=== PATIENT | female | born 1970 | race Caucasian/White ===

== ENCOUNTER → 2019-11-13 11:43 | Outpatient (CLI) | payer OTHER, SELFPAY ==
--- NOTE | ~2019-11-13 | XR_ITS ---
EXAMINATION: XR chest 2V EXAM DATE: 11/13/2019 12:05 INDICATION: Cough, wheezing, anterior chest pain. TECHNIQUE: Frontal and lateral projections of the chest obtained and reviewed. There is no prior shanon dy for comparison. FINDINGS: There is large sliding gastroesophageal hiatal hernia. The lungs are clear. There are no p leural effusions. The cardiomediastinal silhouette is within normal limits. There is no pneumothora x suspected. The bones and soft tissues are unremarkable. IMPRESSION: No acute cardiopulmonary findings. Large hiatal hernia. Reviewed, dictated and finalized at location B. ATAL ICU COORDINATOR
== END ==
PROVIDERS: Visit Provider Family Medicine
DX: J45.909 Unspecified asthma, uncomplicated (principal)
CPT/HCPCS: 71046

== ENCOUNTER 2020-02-27 07:03 | Outpatient (CLI) | payer OTHER, SELFPAY ==
[2020-02-27 07:46] LABS: Hematocrit 38.7 % (37.0-47.0); Mean Corpuscular HGB Conc 33.6 g/dl (32-36); Mean Corpuscular Hemoglobin 29.6 pg (26-34); Mean Corpuscular Volume 88.2 fl (80-100); Mean Platelet Volume 11.1 fl (7.4-10.4); Platelet Count Result 366 k/mm3 (150-375); Red Blood Count 4.39 M/mm3 (4.2-5.4); White Blood Count 5.7 K/mm3 (4.5-10.0)
[2020-02-27 08:54] LABS: Free T4 Free Thyroxine 1.28 ng/mL (0.78-2.19)
[2020-02-27 09:10] LABS: Alanine Aminotransferase 14 U/L (4-35); Alkaline Phosphatase 48 U/L (38-126); Aspartate Amino Transferase 21 U/L (14-36); Bilirubin,Total 0.4 mg/dL (0.2-1.3); Blood Urea Nitrogen 12 mg/dL (7-17); Calcium 9.2 mg/dL (8.4-10.2); Carbon Dioxide 28 mmol/L (22-30); Chloride 103 mmol/L (98-107); Cholesterol 164 mg/dL (0-200); Estimated Glomerular Filt Rate > 60; Glucose 95 mg/dL (65-105); HDL Direct 46 mg/dL; Potassium 3.7 mmol/L (3.4-5.0); Sodium 137 mmol/L (137-145); Triglycerides 79 mg/dL (<150)
[2020-02-27 09:21] LABS: LDL Cholesterol Direct 96 mg/dL
[2020-03-02 04:21] LABS: Triiodothryronine T3 Uptake 32 % (22-35)
== END 2020-02-27 07:04 | disposition home or self-care (01) ==
PROVIDERS: PCP Family Medicine; Visit Provider Physician Assistant
DX: E03.9 Hypothyroidism, unspecified (principal); I10 Essential (primary) hypertension
CPT/HCPCS: 36415; 80053; 80061; 84439; 84443; 84479; 85027

== ENCOUNTER 2020-06-07 02:09 | Outpatient (CLI) | payer OTHER, SELFPAY ==
[2020-06-07 16:34] LABS: SARS-CoV-2 RNA PCR Negative
== END 2020-06-07 02:10 | disposition home or self-care (01) ==
LOC: ANHCOVIDDT 02:09
PROVIDERS: PCP Family Medicine; Visit Provider Internal Medicine Gastroenterology
DX: Z01.812 Encounter for preprocedural laboratory examination (principal); Z20.828 Contact with and (suspected) exposure to other viral communicable diseases
CPT/HCPCS: 87635; C9803; U0003

== ENCOUNTER 2020-06-09 01:34 | Day surgery (SDC) | payer OTHER, SELFPAY ==
[2020-06-03 14:59] VITALS: BMI 40.0
[2020-06-09 06:20] VITALS: BP 136/83; PULSE 84; RESP 20; TEMP 36.6; O2SAT 100; BMI 39.9
[2020-06-09] MEDS: LACTATED RINGERS 1,000 ML 150 ML IV CONT (06:34)
--- NOTE | 2020-06-09 07:12 | P.PNAN_ITS ---
Anes - Initial Pre Proc Eval Procedure: Operation Date: 06/09/20 07:30 Proposed Procedures p Esophagogastroduodenoscopy & Screening Colonoscopy - Harpal Rodriguez MD Date/Time: 06/09/20 07:12 Surgeon: Harpal Quevedo MD Pre Op Diagnosis: Eructation Hernia/ Neoplasm Screening Patient Data Age: 50 Gender: F Height: 5 ft 9 in Weight: 122.7 kg Last Vital Signs Temp 98 F 06/09/20 06:20 Pulse 84 06/09/20 06:20 Resp 20 06/09/20 06:20 BP 136/83 06/09/20 06:20 Pulse Ox 100 06/09/20 06:20 Allergies Allergy/AdvReac Type Severity Reaction Status Date / Time gentamicin Allergy Unknown Eye Verified 06/09/20 06:19 Irriation Home Medications Medication Instructions Recorded Confirmed Type levothyroxine [Synthroid] 150 mcg PO DAILY 08/25/19 06/09/20 History venlafaxine 225 mg PO DAILY 08/25/19 06/09/20 History hydrochlorothiazide 12.5 mg capsule 12.5 mg PO DAILY #90 cap 02/04/20 06/09/20 Rx liothyronine 5 mcg tablet 5 mcg PO DAILY #90 tablet 02/18/20 06/09/20 Rx albuterol sulfate [ProAir HFA] 2 puff INHALATION 6XD PRN 06/03/20 06/03/20 History carvedilol 6.25 mg PO DAILY 06/03/20 06/09/20 History fexofenadine [Ani Allergy] 180 mg PO DAILY 06/03/20 06/09/20 History peg 3350-electrolytes 236 240 ml PO Q10M #4000 ml 06/03/20 Rx gram-22.74 gram-6.74 gram-5.86 gram solution Patient hx anesthesia problems: none Family hx anesthesia problems: none PMFSH Past Medical History Medical History (Updated 05/27/20 @ 13:50 by Harpal Quevedo MD) Adult hypothyroidism Asthma Functional burping disorder H/O diagnostic mammography 08/2019 Hiatal hernia HTN (hypertension) Morbid obesity Social History Social History Social History: Smoking status: Never smoker Second hand tobacco smoke exposure: No Alcohol intake: current Alcohol use details: RARELY Substance use: never Substance use type: does not use Living arrangements: with family Gender identity (if verbalized by the patient): Female Spiritual care concerns: No Anes - Eval Final PreProcedure Day of Procedure 06/09/20 07:12 Patient weight: morbidly obese Heart: regular rate and rhythm Lungs: clear to auscultation Airway: Mallampati scale class II Neurological: alert and oriented Last oral intake: >/= 8 hours ASA classification: III Emergent: no Anesthetic plan: proceed Anesthesia type and monitoring: general GIVS and standard monitoring Informed Consent: The patient's anesthetic plan and its attendant risks and benefits were discussed with the patient/family/POA. Questions were solicited and answers provided to the satisfaction of the patient/family/POA.
--- NOTE | 2020-06-09 07:35 | WPDHPUPDATE1 ---
History and Physical Update Update Date/Time: 06/09/20 07:35 History and Physical has been reviewed, including an updated exam of the patient. There are NO changes in the patient's condition. Risks, benefits, and alternatives have been discussed and questions answered. Patient agrees to proceed with procedure.
--- NOTE | 2020-06-09 07:52 | SUR.OPER ---
EGD ENDED 747 COLON STARTED 752
[2020-06-09 08:07] VITALS: BP 120/70; PULSE 77; RESP 18; O2SAT 99
[2020-06-09 08:17] VITALS: BP 120/71; PULSE 73; RESP 17; O2SAT 100
[2020-06-09 08:27] VITALS: BP 126/67; PULSE 70; RESP 15; O2SAT 100
== END 2020-06-09 08:48 | disposition home or self-care (01) ==
PROVIDERS: PCP Family Medicine; Visit Provider Internal Medicine Gastroenterology
PROC: 0DJ08ZZ Inspection of Upper Intestinal Tract, Via Natural or Artificial Opening Endoscopic (ICD-10-PCS; CPT 43235; principal; 2020-06-09 07:30)
DX: Z12.11 Encounter for screening for malignant neoplasm of colon (principal); K57.30 Diverticulosis of large intestine without perforation or abscess without bleeding; K64.8 Other hemorrhoids; K44.9 Diaphragmatic hernia without obstruction or gangrene; K25.9 Gastric ulcer, unspecified as acute or chronic, without hemorrhage or perforation; K29.50 Unspecified chronic gastritis without bleeding; E03.9 Hypothyroidism, unspecified; I10 Essential (primary) hypertension; E66.01 Morbid (severe) obesity due to excess calories; Z68.39 Body mass index [BMI] 39.0-39.9, adult
CPT/HCPCS: 45378; 43239; 87081; 87635; 88305; C9803; J2704; J7120; U0003

== ENCOUNTER 2021-02-10 08:34 | Outpatient (CLI) | payer OTHER, SELFPAY ==
--- NOTE | ~2021-02-10 | MM_ITS ---
EXAMINATION: MM screening bunny BI w wyatt HISTORY: Screening mammogram TECHNIQUE: Craniocaudal and mediolateral oblique 3-D tomosynthesis images were obtained and synthetic 2-D images were generated. CAD analysis was submitted and interpreted. COMPARISON: 09/12/2019 and 02/25/2019 diagnostic left digital mammogram and limited left breast ultras ound examinations 02/11/2019, 09/27/2016 bilateral digital screening mammogram examinations BREAST PARENCHYMAL COMPOSITION: There are scattered areas of fibroglandular density. FINDINGS: There is no evidence of suspicious mass, calcification, or architectural distortion to sugg est malignancy in either breast. There has been no suspicious interval change. IMPRESSION: 1. No mammographic evidence of malignancy. 2. Recommend routine screening mammography in one year. BI-RADS Category 1: Negative Reviewed, dictated and finalized at location A.
== END 2021-02-10 08:35 | disposition home or self-care (01) ==
PROVIDERS: PCP Family Medicine; Visit Provider Obstetrics & Gynecology
DX: Z12.31 Encounter for screening mammogram for malignant neoplasm of breast (principal)
CPT/HCPCS: 77063; 77067

== ENCOUNTER 2021-04-27 07:42 | Emergency (ER) | payer OTHER, SELFPAY ==
--- NOTE | ~2021-04-27 | CT_ITS ---
EXAMINATION: CTA brain carotid DATE: 04/27/2021 09:11 INDICATION: Transient ischemic attack. Right hemiparesis. TECHNIQUE: Computed tomographic angiography (CTA) of the head was performed without and with 100 mL O mnipaque-350 intravenous contrast. CTA of the neck was performed with intravenous contrast. Automated exposure control and iterative reconstruction technique were employed. The dose-length product was 1 598.43 mGy-cm. Maximum intensity projection and volume rendered 3D-reconstructions were created by zoe thapa technologist on a separate workstation. COMPARISON: None. FINDINGS: HEAD CTA: There is no intracranial hemorrhage, acute infarction, or abnormal intracranial mass lesion . The ventricles are normal in size. There is mild mucosal thickening in the paranasal sinuses. The m astoid air cells are normal. The orbits are normal. The vertebral arteries are codominant. There is n o significant stenosis of basilar artery or the posterior cerebral arteries. There is no significant stenosis of intracranial internal carotid arteries or anterior cerebral arteries. There is nonocclusi ve thrombus in left middle cerebral artery. Anterior communicating artery is normal. The posterior co mmunicating arteries are normal. There is no aneurysm. NECK CTA: There is a 2.0 cm nodule in the thyroid. There are no pathologically enlarged lymph nodes. There is designated stenosis of the vertebral arteries. There is minimal plaque in the proximal inter nal carotid arteries. There is 0% stenosis of the proximal right internal carotid artery relative to normal distal artery lumen diameter (NASCET criteria). There is 0% stenosis of the proximal left int ernal carotid artery relative to normal distal artery lumen diameter. There is moderate cervical spon dylosis. IMPRESSION: 1. Thrombus in proximal left middle cerebral artery. No visible infarct. 2. 0% stenosis of the proximal internal carotid arteries relative to normal distal artery lumen diame ters (NASCET criteria). 3. 2.0 cm thyroid nodule. Consider thyroid ultrasound for risk stratification. Reviewed, dictated and finalized at location A. IMPRESSION: 1. Thrombus in proximal left middle cerebral artery. No visible infarct. 2. 0% stenosis of the proximal internal carotid arteries relative to normal dis keysha artery lumen diameters (NASCET criteria). 3. 2.0 cm thyroid nodule. Consider thyroid ultrasound for risk stratification.
[2021-04-27 07:51] VITALS: BP 131/96; PULSE 86; RESP 16; TEMP 36.6; O2SAT 99
--- NOTE | 2021-04-27 08:02 | ECG_ITS ---
Measurements Intervals [place] Rate: 75 P: 67 CA: 139 QRS: -24 QRSD: 114 T: 50 QT: 385 QTc: 432 Interpretive Statements SINUS RHYTHM POOR R WAVE PROGRESSION, ANTERIOR LEADS BASELINE ARTIFACT- I, II, III, AVR, AVL, AVF, V1, V3-V5 BORDERLINE ECG Electronically Signed On 04-27-2021 8:56:32 CDT by Yvon Montes D.O.
--- NOTE | 2021-04-27 08:03 | ED.NEUROSD ---
HPI - Neuro Symptoms/Deficit General Chief Complaint: Neuro Symptoms/Deficit Stated Complaint: arm weakness leg weakness/ right side/onset 0700 Time Seen by Provider: 04/27/21 07:49 History of Present Illness HPI Narrative: 51 yo female w/ h/o htn presents to the ED for stroke-like symptoms. She reports that after getting out of bed she attempted to reach for something with her right hand and was not able to make it work. She picked it up with her left hand with no problem. She then tried to walk and fell to the ground. When she called out for help she was not able to form words. These symptoms lasted 5-10 minutes. they have totally resolved at this time. No prior events. Denies any other symptoms. Related Data Home Medications Medication Instructions Recorded Confirmed venlafaxine 225 mg PO DAILY 08/25/19 02/08/21 albuterol sulfate [ProAir HFA] 2 puff INHALATION 6XD PRN 06/03/20 02/08/21 fexofenadine 60 mg tablet 60 mg PO Q12H 02/08/21 02/08/21 Allergies Allergy/AdvReac Type Severity Reaction Status Date / Time gentamicin Allergy Unknown Eye Verified 04/27/21 07:59 Irriation Review of Systems Review of Systems: All systems reviewed & are unremarkable except as noted in HPI and below Constitutional: Constitutional: Denies chills and Denies fever(s) Eyes: Eyes: Denies change in vision ENT: Reports dizziness Cardiovascular: Cardiovascular: Denies chest pain Respiratory: Respiratory: Denies dyspnea Gastrointestinal: Gastrointestinal: Denies abdominal pain and Denies nausea Genitourinary: Genitourinary: Reports no additional female genitourinary complaints Musculoskeletal: Musculoskeletal: Denies back pain Neurologic: Reports as per HPI [facility] Past Medical History Medical History Adult hypothyroidism Asthma Functional burping disorder GERD (gastroesophageal reflux disease) H/O diagnostic mammography 08/2019 Hiatal hernia HTN (hypertension) Morbid obesity Family History Family History Father Hypertension Family history of elevated blood lipids Mother Family history of lung cancer Other Family history of arthritis Family history of cardiovascular disease Family history of malignant neoplasm Social History Social History Social History: Smoking status: Never smoker Second hand tobacco smoke exposure: No Alcohol intake: current Alcohol use details: Once a month Substance use: never Substance use type: does not use Gender identity (if verbalized by the patient): Female Spiritual care concerns: No Exam Const: General: healthy appearing, no acute distress and alert Orientation/consciousness: patient oriented x3 HENMT: Head: normal to inspection Neck: Neck: normal visual inspection and no lymphadenopathy Chest: Chest palpation & inspection: no tenderness Resp: Effort & Inspection: normal respiratory effort Auscultation: clear to auscultation bilaterally, no rales, no rhonchi and no wheezes Cardio: Jugular venous distension: no JVD Rate: regular rate Rhythm: regular rhythm Heart sounds: no murmurs GI: Inspection: non-distended GI Palp: Yes Soft to palpation and No Tenderness to palpation present (GI) Skin: General skin exam: normal color Neuro: General: patient oriented x3 and moves all extremities Speech: normal speech Motor exam (neuro): 5/5 motor strength present throughout Sensory Exam: normal sensation Coordination: [id number]-[id number] test normal and Normal rapid alternating movements of the distal upper extremity present (Neuro) Extrem: General: no edema Psych: Appearance: well kempt Affect: normal affect Course Vital Signs Vital signs: Vital Signs Temperature 36.6 C 04/27/21 07:51 Pulse Rate 86 04/27/21 07:51 Respiratory Rate 16 04/27/21 07:51 Blo
[2021-04-27 08:16] LABS: Glucose Point of Care 117 mg/dl (65-105)
[2021-04-27 08:32] LABS: Basophils Absolute Auto 0.1 K/mm3 (0.0-0.1); Basophils Percent Auto 1.1 % (0.2-1.2); Eosinophils Absolute Auto 0.3 K/mm3 (0-0.3); Eosinophils Percent Auto 6.7 % (0-4.4); Hematocrit 39.6 % (37.0-47.0); Hemoglobin 12.9 g/dL (12.0-15.0); Immature Granulocyte Absolute 0.02 K/mm3 (0.00-0.031); Immature Granulocyte Percent A 0.4 % (0-0.5); Lymphocytes Absolute Auto 1.17 K/mm3 (0.9-3.2); Lymphocytes Percent Auto 24.6 % (18.3-44.2); Mean Corpuscular HGB Conc 32.6 g/dl (32-36); Mean Corpuscular Hemoglobin 28.5 pg (26-34); Mean Corpuscular Volume 87.6 fl (80-100); Mean Platelet Volume 10.9 fl (7.4-10.4); Monocytes Absolute Auto 0.4 K/mm3 (0.1-0.6); Monocytes Percent Auto 9.3 % (2.6-8.5); Neutrophils Absolute Auto 2.8 K/mm3 (1.3-6.7); Neutrophils Percent Auto 57.9 % (45.5-73.1); Platelet Count Result 346 k/mm3 (150-375); Red Blood Count 4.52 M/mm3 (4.2-5.4); Red Cell Distribution Width 13.5 % (11.5-14.5); White Blood Count 4.8 K/mm3 (4.5-10.0)
[2021-04-27 08:36] LABS: Alanine Aminotransferase 19 U/L (4-35); Alkaline Phosphatase 60 U/L (38-126); Anion Gap 7 mmol/L (8-16); Aspartate Amino Transferase 24 U/L (14-36); Bilirubin,Total 0.4 mg/dL (0.2-1.3); Blood Urea Nitrogen 9 mg/dL (7-17); Calcium 9.3 mg/dL (8.4-10.2); Carbon Dioxide 25 mmol/L (22-30); Chloride 103 mmol/L (98-107); Estimated Glomerular Filt Rate > 60; Glucose 123 mg/dL (65-110); Potassium 3.5 mmol/L (3.4-5.0); Sodium 135 mmol/L (137-145)
[2021-04-27 08:45] LABS: Partial Thromboplastin Time 28.1 SECONDS (22.3-36.8)
[2021-04-27 08:48] LABS: Troponin I < 0.012 ng/mL (0.000-0.034)
--- NOTE | 2021-04-27 09:59 | PC.NURSE ---
Aspirin not given. Pt took a total of 6 81mg aspirin this morning. Dr. Kitchen made aware.
[2021-04-27 10:00] VITALS: BP 127/90; PULSE 83; RESP 16; O2SAT 100
[2021-04-27 10:09] VITALS: BP 119/82; PULSE 77; RESP 16; O2SAT 100
== END 2021-04-27 10:23 | disposition short-term general hospital (02) ==
PROVIDERS: Emergency Provider Emergency Medicine; PCP Family Medicine
DX: G45.9 Transient cerebral ischemic attack, unspecified (principal); I66.02 Occlusion and stenosis of left middle cerebral artery; J45.909 Unspecified asthma, uncomplicated; K21.9 Gastro-esophageal reflux disease without esophagitis; I10 Essential (primary) hypertension; E66.01 Morbid (severe) obesity due to excess calories; E03.9 Hypothyroidism, unspecified; R94.31 Abnormal electrocardiogram [ECG] [EKG]
CPT/HCPCS: 36415; 70496; 70498; 80053; 82948; 84484; 85025; 85610; 85730; 93005; 99285; Q9967

== ENCOUNTER 2021-12-12 06:48 | Outpatient (CLI) | payer OTHER, SELFPAY ==
[2021-12-12 07:31] LABS: Basophils Absolute Auto 0.1 K/mm3 (0.0-0.1); Basophils Percent Auto 0.9 % (0.2-1.2); Eosinophils Absolute Auto 0.4 K/mm3 (0-0.3); Eosinophils Percent Auto 6.5 % (0-4.4); Hemoglobin 13.1 g/dL (12.0-15.0); Immature Granulocyte Absolute 0.01 K/mm3 (0.00-0.031); Immature Granulocyte Percent A 0.2 % (0-0.5); Lymphocytes Absolute Auto 1.58 K/mm3 (0.9-3.2); Lymphocytes Percent Auto 29.3 % (18.3-44.2); Mean Corpuscular HGB Conc 33.6 g/dl (32-36); Mean Corpuscular Hemoglobin 30.6 pg (26-34); Mean Corpuscular Volume 91.1 fl (80-100); Mean Platelet Volume 9.9 fl (7.4-10.4); Monocytes Absolute Auto 0.4 K/mm3 (0.1-0.6); Monocytes Percent Auto 8.2 % (2.6-8.5); Neutrophils Percent Auto 54.9 % (45.5-73.1); Platelet Count Result 314 k/mm3 (150-375); Red Blood Count 4.28 M/mm3 (4.2-5.4); Red Cell Distribution Width 12.6 % (11.5-14.5); White Blood Count 5.4 K/mm3 (4.5-10.0)
[2021-12-12 07:47] LABS: Alanine Aminotransferase 22 U/L (4-35); Albumin Level 3.9 g/dL (3.5-5.1); Alkaline Phosphatase 55 U/L (38-126); Anion Gap 5 mmol/L (8-16); Aspartate Amino Transferase 24 U/L (14-36); Bilirubin,Total 0.4 mg/dL (0.2-1.3); Blood Urea Nitrogen 11 mg/dL (7-17); Calcium 9.1 mg/dL (8.4-10.2); Carbon Dioxide 30 mmol/L (22-30); Chloride 106 mmol/L (98-107); Cholesterol 122 mg/dL (0-200); Estimated Glomerular Filt Rate > 60; Glucose 100 mg/dL (65-110); HDL Direct 54 mg/dL; Potassium 4.1 mmol/L (3.4-5.0); Sodium 141 mmol/L (137-145); Triglycerides 68 mg/dL (<150)
[2021-12-12 07:57] LABS: LDL Cholesterol Direct 47 mg/dL
[2021-12-12 08:07] LABS: Free T4 Free Thyroxine 0.96 ng/mL (0.78-2.19)
[2021-12-12 08:17] LABS: Thyroid Stimulating Hormone 0.155 uIU/mL (0.465-4.680); Total Triiodothyronine (T3) 1.26 NG/ML (0.97-1.69)
== END 2021-12-12 06:49 | disposition home or self-care (01) ==
LOC: ANHLAB 06:50
PROVIDERS: PCP Family Medicine; Visit Provider Family Medicine
DX: I10 Essential (primary) hypertension (principal); E03.9 Hypothyroidism, unspecified; E78.2 Mixed hyperlipidemia; E11.9 Type 2 diabetes mellitus without complications
CPT/HCPCS: 36415; 80053; 80061; 83036; 84439; 84443; 84480; 85025

== ENCOUNTER 2022-02-04 06:41 | Outpatient (CLI) | payer OTHER, SELFPAY ==
[2022-02-04 07:44] LABS: Alanine Aminotransferase 21 U/L (6-35); Albumin Level 4.1 g/dL (3.5-5.1); Alkaline Phosphatase 59 U/L (38-126); Anion Gap 6 mmol/L (8-16); Aspartate Amino Transferase 25 U/L (14-36); Bilirubin,Total 0.3 mg/dL (0.2-1.3); Blood Urea Nitrogen 20 mg/dL (7-17); Carbon Dioxide 28 mmol/L (22-30); Chloride 104 mmol/L (98-107); Cholesterol 121 mg/dL (0-200); Estimated Glomerular Filt Rate > 60; Glucose 100 mg/dL (65-110); HDL Direct 59 mg/dL; Potassium 4.2 mmol/L (3.4-5.0); Sodium 138 mmol/L (137-145); Triglycerides 45 mg/dL (<150)
[2022-02-04 07:45] LABS: Basophils Absolute Auto 0.1 K/mm3 (0.0-0.1); Basophils Percent Auto 0.9 % (0.2-1.2); Eosinophils Absolute Auto 0.3 K/mm3 (0-0.3); Eosinophils Percent Auto 5.5 % (0-4.4); Hematocrit 39.2 % (37.0-47.0); Hemoglobin 13.2 g/dL (12.0-15.0); Immature Granulocyte Absolute 0.01 K/mm3 (0.00-0.031); Immature Granulocyte Percent A 0.2 % (0-0.5); Lymphocytes Absolute Auto 1.68 K/mm3 (0.9-3.2); Lymphocytes Percent Auto 29.6 % (18.3-44.2); Mean Corpuscular HGB Conc 33.7 g/dl (32-36); Mean Corpuscular Hemoglobin 30.8 pg (26-34); Mean Corpuscular Volume 91.6 fl (80-100); Mean Platelet Volume 10.2 fl (7.4-10.4); Monocytes Absolute Auto 0.4 K/mm3 (0.1-0.6); Monocytes Percent Auto 7.4 % (2.6-8.5); Neutrophils Absolute Auto 3.2 K/mm3 (1.3-6.7); Neutrophils Percent Auto 56.4 % (45.5-73.1); Platelet Count Result 326 k/mm3 (150-375); Red Blood Count 4.28 M/mm3 (4.2-5.4); White Blood Count 5.7 K/mm3 (4.5-10.0)
[2022-02-04 07:57] LABS: LDL Cholesterol Direct 38 mg/dL
[2022-02-04 08:19] LABS: Thyroid Stimulating Hormone 0.695 uIU/mL (0.465-4.680)
== END 2022-02-04 06:42 | disposition home or self-care (01) ==
LOC: ANHLAB 06:43
PROVIDERS: PCP Family Medicine; Visit Provider Family Medicine
DX: I10 Essential (primary) hypertension (principal); E03.9 Hypothyroidism, unspecified; E78.2 Mixed hyperlipidemia
CPT/HCPCS: 36415; 80053; 80061; 84439; 84443; 85025

== ENCOUNTER 2022-04-12 00:34 | Inpatient (IN) | payer OTHER, SELFPAY ==
--- NOTE | ~2022-04-12 | CT_ITS ---
EXAMINATION: CT abdomen pelvis w con DATE: 04/12/2022 01:41 INDICATION: Upper abdominal pain TECHNIQUE: Computed tomography (CT) of the abdomen and pelvis was performed with 100 mL Omnipaque-300 intravenous contrast. Automated exposure control and iterative reconstruction technique were employe d. The dose-length product was 1446.53 mGy-cm. COMPARISON: None FINDINGS: Visualized lower lungs are clear. Heart size is normal. No pericardial or pleural effusion. Postopera tive change of prior Roxann fundoplication. Mild central intrahepatic biliary ductal dilation and mil d dilation of the common bile duct which measures up to 8 mm in maximal diameter without evident obst ructing stone or mass. Mild dilation of the gallbladder with subtle haziness to the pericholecystic f at suspicious for acute cholecystitis. Mild peripancreatic stranding consistent with acute pancreatit is. Spleen, bilateral adrenal glands and kidneys are normal. There is mild colonic diverticulosis wit h a sigmoid and descending colon predominance. There is no adjacent inflammatory change to suggest d iverticulitis. Small bowel and appendix are normal. Bladder, anteverted uterus and bilateral adnexa a re unremarkable. No free intraperitoneal gas or fluid. No pathologically enlarged abdominal or pelvic lymphadenopathy. Mild lumbar levocurvature with severe lower lumbar spondylosis. IMPRESSION: 1. Mild peripancreatic inflammatory stranding consistent with acute interstitial pancreatitis. Correl ate with amylase and lipase levels. 2. Dilation of the gallbladder with subtle inflammatory stranding to the pericholecystic fat consiste nt with acute cholecystitis. 3. Mild intra and extrahepatic biliary ductal dilation without evident obstructing lesion. Could cons ider MRCP for further evaluation. Reviewed, dictated and finalized at location A. IMPRESSION: 1. Mild peripancreatic inflammatory stranding consistent with acute interstitia l pancreatitis. Correlate with amylase and lipase levels. 2. Dilation of the gallbladder with subtle inflammatory stranding to the perich olecystic fat consistent with acute cholecystitis. 3. Mild intra and extrahepatic biliary ductal dilation without evident obstruct ing lesion. Could consider MRCP for further evaluation.
--- NOTE | ~2022-04-12 | MR_ITS ---
EXAMINATION: MR MRCP wo/w con/w 3D wo ind DATE: 04/12/2022 13:18 INDICATION: Cholelithiasis, pancreatitis TECHNIQUE: Magnetic resonance imaging (MRI) of the abdomen was performed without and with intravenous contrast. Sequences included coronal T2-weighted SS-FSE ARC, coronal T2-weighted FS SS-FSE, coronal T2-weighted 2D FS FIESTA, Water:Coronal LAVA-Flex, sagittal T2-weighted SS-FSE ARC, axial SSFSE ARC, axial 3D DualEcho, axial DWI B=600, axial T1-weighted LAVA, FAT:Coronal LAVA-Flex, and coronal in and opposed phase LAVA-Flex. Thick-slab T2-weighted FRFSE-XL images were obtained for magnetic resonance cholangiopancreatography (MRCP). Maximum intensity projection 3-D reconstructions of the volumetric data were created by the technologist. Postcontrast sequences included a time course of axial T1-weig hted LAVA, FAT:Coronal LAVA-Flex, coronal in and opposed phase LAVA-Flex, and Water:Coronal LAVA-Flex . COMPARISON: CT and ultrasound from today CONTRAST: Multihance, 20 cc FINDINGS: ABDOMEN MRI: The liver, spleen, adrenal glands, and kidneys are normal. The gallbladder is distended and contains multiple stones. There is mild wall thickening of the gallbladder and more focal wall th ickening in the gallbladder fundus. There is mildly decreased enhancement of the pancreas. There is a small amount peripancreatic fluid. There are no pathologically enlarged abdominal lymph nodes. No di lated loops of bowel are evident. The appendix is normal. A Tarlov cyst is noted in the sacrum. ABDOMEN MRCP: There is no intrahepatic or extrahepatic biliary dilatation. No stones or stricture of the common bile duct are identified. The pancreatic duct is normal in course and caliber. IMPRESSION: 1. No intrahepatic or extrahepatic biliary dilatation. No stones or stricture of the common bile duct . 2. Findings consistent with acute pancreatitis. 3. Cholelithiasis and cholecystitis, possibly secondary to pancreatitis. Reviewed, dictated and finalized at location B. IMPRESSION: 1. No intrahepatic or extrahepatic biliary dilatation. No stones or stricture o f the common bile duct. 2. Findings consistent with acute pancreatitis. 3. Cholelithiasis and cholecystitis, possibly secondary to pancreatitis.
--- NOTE | ~2022-04-12 | XR_ITS ---
EXAMINATION: 04/14/2022 12:55 DATE: 04/14/2022 15:19 CDT INDICATION: Cholecystectomy, intraoperative cholangiogram TECHNIQUE: Intraoperative cholangiogram with portable contrast run(s) provided for review. 312 images . 65 seconds of fluoroscopy. FINDINGS: There is cannulation and contrast administration into the cystic duct remnant. There is a long cystic duct with a low insertion, a normal variant. There is a persistent filling defect which is mobile and the common duct which is seen near the sphincter of Oddi on the final images, consisten t with choledocholithiasis. No significant biliary dilatation. Extravasation of contrast is noted. Th ere is passage of contrast into the duodenum, consistent with only partial obstruction. IMPRESSION: 1. Patent cystic duct and common duct with multiple filling defect, consistent with choledocholithia sis. Reviewed, dictated and finalized at location A. IMPRESSION: 1. Patent cystic duct and common duct with multiple filling defect, consistent with choledocholithiasis.
--- NOTE | ~2022-04-12 | US_ITS ---
US abdomen limited INDICATION: Evaluate for cholelithiasis. PROCEDURE: Realtime right upper abdominal ultrasound. COMPARISON: CT abdomen dated 04/12/2022 FINDINGS: The pancreas is normal without focal mass or pancreatic ductal dilation. Liver echotexture is normal without focal mass or intrahepatic biliary dilatation. There is normal directional flow i n the portal vein. Gallbladder contains gallstones and sludge. No gallbladder wall thickening or pericholecystic fluid. Common bile duct measures 5 mm. No sonographic Pradhan's sign. IMPRESSION: 1: Gallbladder contains gallstones and sludge. Reviewed, dictated and finalized at location A.
[2022-04-12 00:42] VITALS: BP 132/64; PULSE 86; RESP 26; TEMP 36.4; O2SAT 100
[2022-04-12 01:05] LABS: Basophils Absolute Auto 0.1 K/mm3 (0.0-0.1); Basophils Percent Auto 0.6 % (0.2-1.2); Eosinophils Absolute Auto 0.1 K/mm3 (0-0.3); Eosinophils Percent Auto 0.9 % (0-4.4); Hematocrit 40.7 % (37.0-47.0); Hemoglobin 13.7 g/dL (12.0-15.0); Immature Granulocyte Absolute 0.02 K/mm3 (0.00-0.031); Immature Granulocyte Percent A 0.2 % (0-0.5); Lymphocytes Absolute Auto 0.85 K/mm3 (0.9-3.2); Lymphocytes Percent Auto 9.7 % (18.3-44.2); Mean Corpuscular HGB Conc 33.7 g/dl (32-36); Mean Corpuscular Hemoglobin 30.2 pg (26-34); Mean Corpuscular Volume 89.8 fl (80-100); Mean Platelet Volume 9.8 fl (7.4-10.4); Monocytes Absolute Auto 0.7 K/mm3 (0.1-0.6); Monocytes Percent Auto 8.4 % (2.6-8.5); Neutrophils Absolute Auto 7.1 K/mm3 (1.3-6.7); Neutrophils Percent Auto 80.2 % (45.5-73.1); Platelet Count Result 359 k/mm3 (150-375); Red Blood Count 4.53 M/mm3 (4.2-5.4); Red Cell Distribution Width 12.5 % (11.5-14.5); White Blood Count 8.8 K/mm3 (4.5-10.0)
--- NOTE | 2022-04-12 01:07 | ED.ABDPAIN ---
HPI - Abdominal Pain General Chief Complaint: Abdominal Pain Stated Complaint: ABD pain Time Seen by Provider: 04/12/22 00:48 Source: patient, RN notes reviewed and old records reviewed Mode of arrival: ambulatory Limitations: no limitations History of Present Illness HPI narrative: This is a 53 year old female who presents for evaluation of upper abdominal pain. She states her pain started at 5 pm yesterday evening. She has associated bloating, nausea, vomiting. She states her pain is constant and worsening. She also states her pain radiates to her back. She denies fever or chills. She had similar pain 2 weeks ago but it resolved spontaneously so she did not seek medical evaluation. She has never been diagnosed with gallstones or pancreatitis in the past. She ate dinner and she is unsure if eating made her pain worse. She rates her pain 10/10. She denies chest pain. She reports shortness of breath due to her abdominal pain. Related Data Home Medications Medication Instructions Recorded Confirmed venlafaxine 75 mg capsule,extended 225 mg PO DAILY 08/25/19 02/27/22 release 24 hr fexofenadine 60 mg tablet (Ani 60 mg PO Q12H 02/08/21 02/27/22 Allergy) carvedilol 6.25 mg tablet 6.25 mg PO DAILY 04/12/22 04/12/22 liothyronine 5 mcg tablet 5 mcg PO DAILY 04/12/22 04/12/22 Allergies Allergy/AdvReac Type Severity Reaction Status Date / Time gentamicin Allergy Unknown Eye Verified 04/12/22 00:53 Irriation [facility] Past Medical History Medical History (Updated 04/12/22 @ 03:39 by Gini Parrish MD) Adult hypothyroidism ASD (atrial septal defect) Asthma DVT (deep venous thrombosis) Functional burping disorder GERD (gastroesophageal reflux disease) H/O diagnostic mammography 08/2019 Hiatal hernia HTN (hypertension) Morbid obesity Surgical History Surgical History (Updated 04/12/22 @ 01:09 by Gini Parrish MD) H/O hernia repair Family History Family History Father Hypertension Family history of elevated blood lipids Mother Family history of lung cancer Other Family history of arthritis Family history of cardiovascular disease Family history of malignant neoplasm Social History Social History (Updated 05/27/22 @ 08:00 by Amanda Solorzano Social History: Smoking status: Never smoker Second hand tobacco smoke exposure: No Alcohol intake: current Drinks per week: 1 Alcohol use details: Once a month Substance use: never Substance use type: does not use Gender identity (if verbalized by the patient): Female Sexual Orientation (if Verbalized by the Patient): Straight or Heterosexual Spiritual care concerns: No Exam Const: General: ill appearing Nutritional Appearance: obese Orientation/consciousness: patient oriented x3 HENMT: Head: normal to inspection Face and sinus: normal facial exam Eyes: EOM: EOMs intact bilaterally Chest: Chest palpation & inspection: normal inspection of the chest Resp: Effort & Inspection: normal respiratory effort Auscultation: clear to auscultation bilaterally Cardio: Rate: regular rate Rhythm: regular rhythm Heart sounds: no murmurs GI: GI Palp: Yes Soft to palpation, Yes Tenderness to palpation present (GI) (RUQ, epigastric), No Guarding due to palpation present (GI) and No Rigid due to palpation Auscultation: Hypoactive bowel sounds present Skin: General skin exam: normal color Rashes: no rashes Wounds: no wounds Neuro: General: patient oriented x3, moves all extremities and CN's II-XI intact bilaterally Psych: Mental Status: mental status grossly normal Affect: normal affect Course Reevaluation(s) Reevaluation #1: I Discussed with patient plan to admit for acute pancreatitis. She understands management. Dr. harrison accepts for acute pancreatitis. She will need US of gallbladder Date: 04/12/22 Time: 03:37 Vital Signs Vital
[2022-04-12 01:13] LABS: Appearance Urine Slightly Cloudy (Clear); Bilirubin Urine Negative (Negative); Blood Urine Negative (Negative); Color Urine Yellow (Yellow); Glucose Urine UA Negative (Negative); Ketones Urine Negative (Negative); Leukocyte Esterase Ur Negative LEU/UL (Negative); Nitrate Urine Negative (Negative); Protein Urine Negative (Negative)
[2022-04-12 01:16] LABS: Alanine Aminotransferase 212 U/L (6-35); Albumin Level 4.4 g/dL (3.5-5.1); Alkaline Phosphatase 69 U/L (38-126); Anion Gap 8 mmol/L (8-16); Aspartate Amino Transferase 342 U/L (14-36); Bilirubin,Total 1.5 mg/dL (0.2-1.3); Blood Urea Nitrogen 14 mg/dL (7-17); Calcium 9.6 mg/dL (8.4-10.2); Carbon Dioxide 26 mmol/L (22-30); Chloride 102 mmol/L (98-107); Estimated CRCL calculation 125 ml/min; Estimated Glomerular Filt Rate > 60; Glucose 152 mg/dL (65-110); Potassium 3.6 mmol/L (3.4-5.0); Sodium 136 mmol/L (137-145)
[2022-04-12] MEDS: LACTATED RINGERS 1,000 ML 999 ML IV CONT (01:20)
[2022-04-12] MEDS: HYDROmorphone HCL INJ (*CRX) 1 MG/ML SYR IV PUSH (01:21)
[2022-04-12] MEDS: ONDANSETRON INJ 4 MG/2 ML VIAL IV PUSH (01:21)
[2022-04-12 01:36] LABS: Amorphous Sediment Urine Few; Mucus Urine Rare /lpf; Squamous Epithelial Cell Urine Rare /hpf (Few)
[2022-04-12 01:42] LABS: Add Urine Microscopic? YES
[2022-04-12 01:42] LABS: Lipase 35990 U/L (23-300)
[2022-04-12 03:39] LABS: SARS-CoV-2 RNA PCR Negative
[2022-04-12 04:11] VITALS: BP 131/85; PULSE 78; RESP 18; O2SAT 98
[2022-04-12] MEDS: SODIUM CHLORIDE 0.9% IV 1,000 ML 125 ML IV CONT ×3 (04:13→21:18)
[2022-04-12 05:00] VITALS: BP 118/71; PULSE 72; RESP 18; TEMP 35.9; O2SAT 100; BMI 37.8
[2022-04-12 06:00] VITALS: BP 118/69; PULSE 75; RESP 18; TEMP 36.1; O2SAT 100
--- NOTE | 2022-04-12 09:15 | PM.IMHP ---
H&P: HPI History of Present Illness Date/Time: 04/12/22914 Chief Complaint: Abdominal pain Narrative: Patient is a 52-year-old female with a past medical history hypothyroidism, DVT, asthma, GERD, hernia repair who presented to the ED with abdominal pain. Patient stated that she had similar pain about 2 weeks ago however resolved and she did not seek any kind of medical attention due to the resolution. However her pain started about 5:00 p.m. before dinner. She ate dinner thinking that would help and it was Burmese toast however it did not. She also took Dulcolax, Gas-X, Beano however nothing helped with the pain. She stated that the pain is very sharp a 10/10 feels like she is very bloated she is going to pop. She stated that the pain is across the epigastric area. Patient also stated that the pain is radiating to her back to the bilateral CVA area. She did have more pain on the left however she stated that she had a lipoma there and she does have a cyst upon palpitation. She also stated that she has shortness of breath which she related to taking a deep breath in which is related to the pancreatitis/gallbladder. Liver enzymes are elevated a AST is 342 ALT is 212 bilirubin is 1.5. Lipase is 35,990. She is currently very anxious and is not really wanting to be here however she needs to be. She denies any chest pain, nausea, vomiting, diarrhea, constipation, lightheadedness, weakness, fatigue, dizziness. Consult has been made to General surgery and to GI for further evaluation. Patient is being admitted to the hospitalist service as observation [facility] Past Medical History Medical History Adult hypothyroidism ASD (atrial septal defect) Asthma DVT (deep venous thrombosis) GERD (gastroesophageal reflux disease) Hiatal hernia HTN (hypertension) Morbid obesity PFO (patent foramen ovale) TIA (transient ischemic attack) Surgical History Surgical History H/O hernia repair Family History Family History Father Hypertension Family history of elevated blood lipids Mother Family history of lung cancer Other Family history of arthritis Family history of cardiovascular disease Family history of malignant neoplasm Social History Social History Social History: Patient is currently to her Dexter of 26 years. They have 3 children that were boys however 1 is going through a sex change and is transgender. Her oldest son is 27 and her 2 younger sons are twins at 26. She currently wishes to be a full code and Dexter would be her surrogate. 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 Gender identity (if verbalized by the patient): Female Sexual Orientation (if Verbalized by the Patient): Straight or Heterosexual Spiritual care concerns: No Agree to blood products: Yes Meds Home Medications and Allergies Home Medications Medication Instructions Recorded Confirmed Type venlafaxine 75 mg capsule,extended 225 mg PO DAILY 08/25/19 04/12/22 History release 24 hr fexofenadine 60 mg tablet (Ani 60 mg PO Q12H 02/08/21 04/12/22 History Allergy) levothyroxine 150 mcg tablet 150 mcg PO DAILY #90 tabs 12/19/21 04/12/22 Rx (Synthroid) hydrochlorothiazide 12.5 mg capsule See Rx Instructions .Route 03/10/22 04/12/22 Rx .COMPLEX #30 caps atorvastatin 40 mg tablet See Rx Instructions .Route 03/23/22 04/12/22 Rx .COMPLEX #90 tabs rivaroxaban 20 mg tablet (Xarelto) See Rx Instruc
[2022-04-12] MEDS: diazePAM INJ (*CRX) 10 MG/2 ML SYRINGE 5 MG IV PUSH (11:49)
--- NOTE | 2022-04-12 11:58 | PM.CNGS ---
Assessment and Plan Assessment and plan (1) Acute pancreatitis: Code(s): K85.90 - Acute pancreatitis without necrosis or infection, unspecified Status: Acute Assessment and Plan: Patient presents with acute interstitial pancreatitis and elevated LFTs. CT scan and US reviewed. US showed cholelithiasis with sludge. This appears to be biliary pancreatitis. Lipase is 35,000, total bilirubin is 1.5, and there is mild intra and extrahepatic biliary ductal dilatation noted on CT. She could have choledocholithiasis or a gallstone could have passed. MRCP has been ordered. Would agree with continuing to treat her pancreatitis with IV fluids, bowel rest, and analgesics as needed. We will await her MRCP results and GI consultation. She will eventually need a cholecystectomy, but timing of surgery will depend on how her pancreatitis improves and GI's recommendations. I discussed the indication for a laparoscopic cholecystectomy with the patient. Description of the procedure, risks, benefits, expected outcomes, and expected recovery were discussed in detail. (2) Cholelithiasis: Code(s): K80.20 - Calculus of gallbladder without cholecystitis without obstruction Status: Acute Assessment and Plan: Noted on US. See plan above. (3) Transaminitis: Code(s): R74.01 - Elevation of levels of liver transaminase levels Status: Acute Assessment and Plan: LFTs elevated on admission with a total bilirubin of 1.5. MRCP ordered. GI consulted. Likely related to passage of a stone. Continue to trend labs. (4) PFO (patent foramen ovale): Code(s): Q21.1 - Atrial septal defect Status: Acute Assessment and Plan: Embolic TIA in 2020 and found to have a lower extremity DVT and PFO, now on Xarelto. (5) Anticoagulated by anticoagulation treatment: Code(s): Z79.01 - exterminator termite (current) use of anticoagulants Status: Acute Assessment and Plan: Continue to hold Xarelto. (6) HTN (hypertension): Qualifiers: Hypertension type: essential hypertension Qualified Code(s): I10 - Essential (primary) hypertension Code(s): I10 - Essential (primary) hypertension Status: Acute (7) Class 2 obesity with body mass index (BMI) of 37.0 to 37.9 in adult: Code(s): E66.9 - Obesity, unspecified; Z68.37 - Body mass index [BMI] 37.0-37.9, adult Status: Acute Plan I have discussed the patient's case and plan of care with Dr. Duran. Thank you for allowing us to see the patient in consultation and we will continue to follow along with you. History of Present Illness Consult details Consult date: 04/12/22 Reason for consult: gallstones (Cholelithiasis, elevated LFTs, acute pancreatitis) Requesting physician: Christiano Chang APN-C Narrative: This is a 52-year-old female with a history of hypertension, asthma, hypothyroidism, GERD, and embolic TIA in 2020 with findings of a PFO and DVT now on chronic anticoagulation. She presented to the ER last night for evaluation of upper abdominal pain. The onset of her upper abdominal pain was around 5:00 p.m. 2 nights ago. She reports associated bloating, nausea, and vomiting. Her pain radiated to her back and continued to worsen into the next day. This prompted her to go to the ER for evaluation. She reportedly had similar pain 2 weeks ago that resolved spontaneously, therefore she did not seek any medical attention. CT scan of the abdomen and pelvis in the ER showed acute interstitial pancreatitis, gallbladder distension and subtle inflammatory stranding to the pericholecystic fat without any obvious gallstones, and mild intra and extrahepatic biliary ductal dilatation without evident obstructing lesion. Labs showed a normal white blood cell count, elevated LFTs with a total bilirubin of 1.5, and lipase 35,990. COVID negative. She was admitted to the hospitalist service and had a right upper quadrant abdominal ultrasound thi
[2022-04-12 14:00] VITALS: BP 143/76; PULSE 73; RESP 18; TEMP 36; O2SAT 100
[2022-04-12] MEDS: HYDROmorphone HCL INJ (*CRX) 1 MG/ML SYR 0.5 MG IV PUSH ×2 (16:43→20:06)
--- NOTE | 2022-04-12 18:23 | WPDGICN ---
Assessment and Plan Assessment and plan (1) Gallstone pancreatitis: Code(s): K85.10 - Biliary acute pancreatitis without necrosis or infection Status: Acute Assessment and Plan: most likely cause of pancreatitis medical management, npo status already feeling better MRCP without bile duct stones or stricture but + GS surgery on board, they will decide timing of lap vee (2) Cholelithiasis: Code(s): K80.20 - Calculus of gallbladder without cholecystitis without obstruction Status: Acute Assessment and Plan: by surgery no need of ercp (3) Transaminitis: Code(s): R74.01 - Elevation of levels of liver transaminase levels Status: Acute Assessment and Plan: monitor from pancreatitis no stones in bile duct (4) Class 2 obesity with body mass index (BMI) of 37.0 to 37.9 in adult: Code(s): E66.9 - Obesity, unspecified; Z68.37 - Body mass index [BMI] 37.0-37.9, adult Status: Acute (5) Upper abdominal pain: Code(s): R10.10 - Upper abdominal pain, unspecified Status: Acute GI Consult Note Consult date/time: 04/12/22 18:23 Reason for consult: GS pancreatitis, elevated liver enzymes HPI: Valeri Flores is a 52 year old female with?past medical history hypothyroidism, large hiatal hernia repair then had DVT with TIA few weeks after procedure- found to have ASD that will need to be repaired. She came here with new onset of severe epigastric pain with radiation to back, took Dulcolax, Gas-X, Beano however nothing helped with the pain, described as sharp. Two weeks ago had pain but resolved without seeking medical care. Denies alcohol intake and never had pancreatitis. Blood work showed liver enzymes are elevated AST is 342, ALT is 212, bilirubin is 1.5.? Lipase is 35,990. MRCP reviewed, No intrahepatic or extrahepatic biliary dilatation. No stones or stricture of the common bile duct, Findings consistent with acute pancreatitis, Cholelithiasis and cholecystitis, possibly secondary to pancreatitis. Review of Systems Review of Systems: All systems reviewed & are unremarkable except as noted in HPI and below Constitutional: Constitutional: Reports as per HPI, Denies chills, Denies fatigue and Denies fever(s) Eyes: Eyes: Reports no additional eye complaints ENT: Reports system reviewed and no additional complaints, except as documented and Reports Normal hearing present Cardiovascular: Cardiovascular: Reports no additional cardiovascular complaints, Denies chest pain and Denies leg edema Respiratory: Respiratory: Reports no additional respiratory complaints, Denies cough and Denies dyspnea Gastrointestinal: Gastrointestinal: Reports as per HPI, Reports no additional gastrointestinal complaints and Reports abdominal pain Genitourinary: Genitourinary: Denies hematuria and Denies dysuria Musculoskeletal: Musculoskeletal: Reports back pain Integumentary/Breasts: Skin/Breast: Denies jaundice Neurologic: Reports system reviewed and no additional complaints, except as documented, Denies dizziness, Denies focal weakness, Denies numbness and Denies tingling Psychiatric: Psychiatric: Denies anxiety [facility] Past Medical History Medical History (Updated 04/12/22 @ 18:28 by Harpal Quevedo MD) Adult hypothyroidism ASD (atrial septal defect) Asthma DVT (deep venous thrombosis) Gallstone pancreatitis GERD (gastroesophageal reflux disease) Hiatal hernia HTN (hypertension) Morbid obesity PFO (patent foramen ovale) TIA (transient ischemic attack) 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 Upper abdominal pain Surgical History Surgical History (Updated 04/12/22 @ 13:55 by ANKIT Louis) History of delivery History of Roxann fundoplication Family History Family History Father Hypertension Family history of elevated blood lipids Mother Family history of lung cancer Othe
[2022-04-12] MEDS: VENLAFAXINE HCL XR 75 MG CAP.ER.24H PO (20:02)
[2022-04-12 22:00] VITALS: BP 135/81; PULSE 69; RESP 14; TEMP 36.4; O2SAT 97
[2022-04-13] VITALS (15 sets, daily range): BP systolic 112–165; BP diastolic 54–85; PULSE 60–96; RESP 12–20; TEMP 35.8–36.8; O2SAT 94–100
[2022-04-13] MEDS: SODIUM CHLORIDE 0.9% IV 1,000 ML 125 ML IV CONT (04:59)
[2022-04-13 06:42] LABS: Basophils Percent Auto 0.6 % (0.2-1.2); Eosinophils Absolute Auto 0.1 K/mm3 (0-0.3); Eosinophils Percent Auto 2.5 % (0-4.4); Hematocrit 37.2 % (37.0-47.0); Hemoglobin 12.1 g/dL (12.0-15.0); Immature Granulocyte Absolute 0.01 K/mm3 (0.00-0.031); Immature Granulocyte Percent A 0.2 % (0-0.5); Lymphocytes Absolute Auto 1.27 K/mm3 (0.9-3.2); Lymphocytes Percent Auto 24.3 % (18.3-44.2); Mean Corpuscular HGB Conc 32.5 g/dl (32-36); Mean Corpuscular Hemoglobin 30.6 pg (26-34); Mean Corpuscular Volume 93.9 fl (80-100); Mean Platelet Volume 10.1 fl (7.4-10.4); Monocytes Absolute Auto 0.4 K/mm3 (0.1-0.6); Monocytes Percent Auto 6.7 % (2.6-8.5); Neutrophils Absolute Auto 3.4 K/mm3 (1.3-6.7); Neutrophils Percent Auto 65.7 % (45.5-73.1); Platelet Count Result 268 k/mm3 (150-375); Red Blood Count 3.96 M/mm3 (4.2-5.4); Red Cell Distribution Width 12.8 % (11.5-14.5); White Blood Count 5.2 K/mm3 (4.5-10.0)
[2022-04-13 07:48] LABS: Alanine Aminotransferase 252 U/L (6-35); Albumin Level 3.5 g/dL (3.5-5.1); Alkaline Phosphatase 58 U/L (38-126); Anion Gap 7 mmol/L (8-16); Aspartate Amino Transferase 141 U/L (14-36); Bilirubin,Total 0.7 mg/dL (0.2-1.3); Blood Urea Nitrogen 10 mg/dL (7-17); Calcium 8.9 mg/dL (8.4-10.2); Carbon Dioxide 28 mmol/L (22-30); Chloride 106 mmol/L (98-107); Estimated CRCL calculation 149 ml/min; Estimated Glomerular Filt Rate > 60; Glucose 88 mg/dL (65-110); Potassium 3.6 mmol/L (3.4-5.0); Sodium 141 mmol/L (137-145)
--- NOTE | 2022-04-13 08:49 | WPDANESEPPF ---
Anes - Initial Pre Proc Eval Procedure: Operation Date: 04/13/22 13:30 Proposed Procedures p Laparoscopic Cholecystectomy with Intra Operative Cholangiogram - Kris Duran MD Date/Time: 04/13/22 08:49 Surgeon: Job Burns MD Pre Op Diagnosis: acute pancreatitis Patient Data Age: 52 Gender: F Height: 1.75 m Weight: 116.1 kg Last Vital Signs Temp 36.2 C L 04/13/22 06:00 Pulse 79 04/13/22 06:00 Resp 14 04/13/22 06:00 BP 140/67 04/13/22 06:00 Pulse Ox 100 04/13/22 06:00 O2 Del Method Room Air 04/12/22 20:00 Allergies Allergy/AdvReac Type Severity Reaction Status Date / Time gentamicin Allergy Unknown Eye Verified 04/12/22 00:53 Irriation Home Medications Medication Instructions Recorded Confirmed Type venlafaxine 75 mg capsule,extended 225 mg PO DAILY 08/25/19 04/12/22 History release 24 hr fexofenadine 60 mg tablet (Ani 60 mg PO Q12H 02/08/21 04/12/22 History Allergy) levothyroxine 150 mcg tablet 150 mcg PO DAILY #90 tabs 12/19/21 04/12/22 Rx (Synthroid) hydrochlorothiazide 12.5 mg capsule See Rx Instructions .Route 03/10/22 04/12/22 Rx .COMPLEX #30 caps atorvastatin 40 mg tablet See Rx Instructions .Route 03/23/22 04/12/22 Rx .COMPLEX #90 tabs rivaroxaban 20 mg tablet (Xarelto) See Rx Instructions .Route 04/06/22 04/12/22 Rx .COMPLEX #90 tabs carvedilol 6.25 mg tablet 6.25 mg PO DAILY 04/12/22 04/12/22 History liothyronine 5 mcg tablet 5 mcg PO DAILY 04/12/22 04/12/22 History Laboratory Tests 04/13/22 04/13/22 06:09 06:09 WBC 5.2 K/mm3 K/mm3 (4.5-10.0) RBC 3.96 M/mm3 L M/mm3 (4.2-5.4) Hgb 12.1 g/dL g/dL (12.0-15.0) Hct 37.2 % % (37.0-47.0) MCV 93.9 fl fl (80-100) MCH 30.6 pg pg (26-34) MCHC 32.5 g/dl g/dl (32-36) RDW 12.8 % % (11.5-14.5) Plt Count 268 k/mm3 k/mm3 (150-375) MPV 10.1 fl fl (7.4-10.4) Immature Gran % (Auto) 0.2 % % (0-0.5) Neut % (Auto) 65.7 % % (45.5-73.1) Lymph % (Auto) 24.3 % % (18.3-44.2) [place] % (Auto) 6.7 % % (2.6-8.5) Eos % (Auto) 2.5 % % (0-4.4) Baso % (Auto) 0.6 % % (0.2-1.2) Lymph # (Auto) 1.27 K/mm3 K/mm3 (0.9-3.2) [place] # (Auto) 0.4 K/mm3 K/mm3 (0.1-0.6) Eos # (Auto) 0.1 K/mm3 K/mm3 (0-0.3) Baso # (Auto) 0.0 K/mm3 K/mm3 (0.0-0.1) Abs Immat Gran (auto) 0.01 K/mm3 K/mm3 (0.00-0.031) Absolute Neuts (auto) 3.4 K/mm3 K/mm3 (1.3-6.7) Absolute Nucleated RBC 0.0 K/mm3 K/mm3 (0.0-0.012) Nucleated RBC % 0.0 % % (0.0-0.2) Sodium 141 mmol/L mmol/L (137-145) Potassium 3.6 mmol/L mmol/L (3.4-5.0) Chloride 106 mmol/L mmol/L (98-107) Carbon Dioxide 28 mmol/L mmol/L (22-30) Anion Gap 7 mmol/L L mmol/L (8-16) BUN 10 mg/dL mg/dL (7-17) Creatinine 0.50 mg/dL L mg/dL (0.7-1.0) Estim Creat Clear Calc 149 ml/min ml/min Estimated GFR > 60 (59 - ) Glucose 88 mg/dL mg/dL (65-110) Calcium 8.9 mg/dL mg/dL (8.4-10.2) Total Bilirubin 0.7 mg/dL mg/dL (0.2-1.3) AST 141 U/L H U/L (14-36) ALT 252 U/L H U/L (6-35) Alkaline Phosphatase 58 U/L U/L (38-126) Total Protein 6.0 g/dL L g/dL (6.3-8.2) Albumin 3.5 g/dL g/dL (3.5-5.1) Lipase Pending Patient hx anesthesia problems: none Family hx anesthesia problems: none Results Review: All pre-operative results and documents have been reviewed as part of the pre-operative evaluation. [facility] Past Medical History Medical History (Updated 04/12/22 @ 18:28 by Harpal Quevedo MD) Adult hypothyroidism ASD (atrial septal defect) Asthma DVT (deep venous thrombosis) Gallstone pancreatitis GERD (gastroesophageal reflux disease) Hiatal hernia HTN (hypertension) Morbid obesity PFO (patent foramen ovale) TIA (tr
--- NOTE | 2022-04-13 11:45 | P.PNIM_ITS ---
Progress Note: A&P Assessment and Plan (1) Acute pancreatitis: Code(s): K85.90 - Acute pancreatitis without necrosis or infection, unspecified Status: Acute Assessment and Plan: * Ct of the abd/pelvis shows Mild peripancreatic inflammatory stranding consistent with acute interstitial pancreatitis. Correlate with amylase and lipase levels. Dilation of the gallbladder with subtle inflammatory stranding to the pericholecystic fat consistent with acute cholecystitis. Mild intra and extrahepatic biliary ductal dilation without evident obstructing lesion. Could consider MRCP for further evaluation. * ABD Pelvis ultrasound Gallbladder contains gallstones and sludge. * General surgery consulted thank you for your help * GI consulted thank you for your help * IV fluids * NPO diet for now * HCTZ on hold * Lipase 19143, trending down and is currently 6267 * Gallbladder removed today * Trend lipase * Pain medications on board (2) Cholelithiasis: Code(s): K80.20 - Calculus of gallbladder without cholecystitis without obstruction Status: Acute Assessment and Plan: * Ct of the abd/pelvis shows Mild peripancreatic inflammatory stranding consistent with acute interstitial pancreatitis. Correlate with amylase and lipase levels. Dilation of the gallbladder with subtle inflammatory stranding to the pericholecystic fat consistent with acute cholecystitis. Mild intra and extrahepatic biliary ductal dilation without evident obstructing lesion. Could consider MRCP for further evaluation. * ABD Pelvis ultrasound Gallbladder contains gallstones and sludge. * General surgery consulted thank you for your help * GI consulted thank you for your help * IV fluids * NPO diet for now * MRCP No intrahepatic or extrahepatic biliary dilatation. No stones or stricture of the common bile duct, Findings consistent with acute pancreatitis., Cholelithiasis and cholecystitis, possibly secondary to pancreatitis. * Liver enzymes elevated * Gallbladder removed (3) Transaminitis: Code(s): R74.01 - Elevation of levels of liver transaminase levels Status: Acute Assessment and Plan: * AST/ALT elevated at 141/252 * Hep panel in the am * RUQ ultrasound showed stones (4) Hyperlipidemia: Qualifiers: Hyperlipidemia type: mixed hyperlipidemia Qualified Code(s): E78.2 - Mixed hyperlipidemia Code(s): E78.5 - Hyperlipidemia, unspecified Status: Acute Assessment and Plan: * Hold atorvastatin for now since her liver enzymes are elevated (5) Adult hypothyroidism: Code(s): E03.9 - Hypothyroidism, unspecified Status: Acute Assessment and Plan: * Hold oral medications while NPO * Restart when appropriate (6) HTN (hypertension): Qualifiers: Hypertension type: essential hypertension Qualified Code(s): I10 - Essential (primary) hypertension Code(s): I10 - Essential (primary) hypertension Status: Acute Assessment and Plan: * BP is currently 123/75 * Hold oral medications for now * Trend BP * Hydralazine PRN for BP elevation * Adjust therapy as indicated Time Spent With Patient Time with patient: Greater than 35 minutes Subjective Date/time seen: 04/13/22 11:45 Review of Systems Review of Systems: All systems reviewed & are unremarkable except a
--- NOTE | 2022-04-13 11:45 | PM.IMPN ---
Progress Note: A&P Assessment and Plan (1) Acute pancreatitis: Code(s): K85.90 - Acute pancreatitis without necrosis or infection, unspecified Status: Acute Assessment and Plan: Ct of the abd/pelvis shows Mild peripancreatic inflammatory stranding consistent with acute interstitial pancreatitis. Correlate with amylase and lipase levels. Dilation of the gallbladder with subtle inflammatory stranding to the pericholecystic fat consistent with acute cholecystitis. Mild intra and extrahepatic biliary ductal dilation without evident obstructing lesion. Could consider MRCP for further evaluation. ABD Pelvis ultrasound Gallbladder contains gallstones and sludge. General surgery consulted thank you for your help GI consulted thank you for your help IV fluids NPO diet for now HCTZ on hold Lipase 13199, trending down and is currently 6267 Gallbladder removed today Trend lipase Pain medications on board (2) Cholelithiasis: Code(s): K80.20 - Calculus of gallbladder without cholecystitis without obstruction Status: Acute Assessment and Plan: Ct of the abd/pelvis shows Mild peripancreatic inflammatory stranding consistent with acute interstitial pancreatitis. Correlate with amylase and lipase levels. Dilation of the gallbladder with subtle inflammatory stranding to the pericholecystic fat consistent with acute cholecystitis. Mild intra and extrahepatic biliary ductal dilation without evident obstructing lesion. Could consider MRCP for further evaluation. ABD Pelvis ultrasound Gallbladder contains gallstones and sludge. General surgery consulted thank you for your help GI consulted thank you for your help IV fluids NPO diet for now MRCP No intrahepatic or extrahepatic biliary dilatation. No stones or stricture of the common bile duct, Findings consistent with acute pancreatitis., Cholelithiasis and cholecystitis, possibly secondary to pancreatitis. Liver enzymes elevated Gallbladder removed (3) Transaminitis: Code(s): R74.01 - Elevation of levels of liver transaminase levels Status: Acute Assessment and Plan: AST/ALT elevated at 141/252 Hep panel in the am RUQ ultrasound showed stones (4) Hyperlipidemia: Qualifiers: Hyperlipidemia type: mixed hyperlipidemia Qualified Code(s): E78.2 - Mixed hyperlipidemia Code(s): E78.5 - Hyperlipidemia, unspecified Status: Acute Assessment and Plan: Hold atorvastatin for now since her liver enzymes are elevated (5) Adult hypothyroidism: Code(s): E03.9 - Hypothyroidism, unspecified Status: Acute Assessment and Plan: Hold oral medications while NPO Restart when appropriate (6) HTN (hypertension): Qualifiers: Hypertension type: essential hypertension Qualified Code(s): I10 - Essential (primary) hypertension Code(s): I10 - Essential (primary) hypertension Status: Acute Assessment and Plan: BP is currently 123/75 Hold oral medications for now Trend BP Hydralazine PRN for BP elevation Adjust therapy as indicated Time Spent With Patient Time with patient: Greater than 35 minutes Subjective Date/time seen: 04/13/22 11:45 Review of Systems Review of Systems: All systems reviewed & are unremarkable except as noted in HPI and below Exam Const: General: cooperative, well developed, alert, awake, acute distress and anxious Nutritional Appearance: well nourished, obese and overweight Orientation/consciousness: oriented to person, oriented to place, oriented to time and patient oriented x3 Limitations: no limitations HENMT: Head: normal to inspection Ears: hearing grossly normal bilaterally General nose exam: Normal external nose present Mouth: Yes Normal oral and palatal mucosa present, Yes lip normal and Yes tongue normal Teeth and gingiva: abnormal to
[2022-04-13] MEDS: LACTATED RINGERS 1,000 ML 30 ML IV CONT ×2 (13:07→15:28)
--- NOTE | 2022-04-13 13:33 | PM.PNGS ---
Progress Note: A&P Assessment and Plan (1) Gallstone pancreatitis: Code(s): K85.10 - Biliary acute pancreatitis without necrosis or infection Status: Acute Assessment and Plan: Patient feels much better today. Although lipase is pending, she has no abdominal tenderness, no nausea or vomiting. I discussed laparoscopic cholecystectomy with her thoroughly. I explained the procedure the risks the benefits to her. I offered to proceed with the procedure today and she would like to go ahead. We will plan to proceed this afternoon with laparoscopic cholecystectomy. Intraoperative cholangiogram will be done at the procedure to further insure no bile duct stones exist. MRCP done yesterday was negative for any common bile duct stones. (2) Anticoagulated by anticoagulation treatment: Code(s): Z79.01 - halfway (current) use of anticoagulants Status: Acute Assessment and Plan: Last dose of Xarelto was nearly 48 hours ago. Okay to proceed. Subjective Subjective Date/Time Seen: 04/13/22 13:33 Patient reports: feels better (Feels much better today.), pain is less (Having no pain this morning) and afebrile Review of Systems Review of Systems: All systems reviewed & are unremarkable except as noted in HPI and below (HPI and those items noted below) Constitutional: Constitutional: Denies chills and Denies fever(s) Cardiovascular: Cardiovascular: Denies chest pain, Denies diaphoresis, Denies dyspnea and Denies paroxysmal nocturnal dyspnea Respiratory: Respiratory: Denies chest congestion, Denies cough and Denies dyspnea Integumentary/Breasts: Skin/Breast: Denies lesions and Denies rash Exam Const: General: comfortable and no acute distress; No confusion Orientation/consciousness: patient oriented x3 and No confusion GI: Inspection: normal to inspection, non-distended and obesity GI Palp: Yes Soft to palpation, No Tenderness to palpation present (GI), No Guarding due to palpation present (GI), No Hernia present, No Palpable mass present and No Rebound tenderness present Auscultation: normal bowel sounds Neuro: General: patient oriented x3, no focal motor deficits and No confusion Extrem: General: no calf tenderness and no edema Psych: Affect: normal affect Insight: Good insight present (Psych) Judgement: Good judgement present (Psych) Objective Data Vital Signs Vital Signs: Vital Signs - 24 hr 04/12/22 14:00 04/12/22 20:00 04/12/22 22:00 Temperature 36.0 C L 36.4 C L Pulse Rate 73 69 Respiratory Rate 18 14 Blood Pressure 143/76 H 135/81 Pulse Oximetry 100 97 Oxygen Delivery Room Air 04/13/22 06:00 04/13/22 09:45 04/13/22 09:29 Temperature 36.2 C L 36.2 C L Pulse Rate 79 69 Respiratory Rate 14 20 Blood Pressure 140/67 147/85 H Pulse Oximetry 100 100 Oxygen Delivery Room Air 04/13/22 13:01 Temperature 36.5 C Pulse Rate 76 Respiratory Rate 16 Blood Pressure 141/71 H Pulse Oximetry 100 Oxygen Delivery Room Air Intake/Output Intake/Output: Intake & Output 04/10/22 04/11/22 04/12/22 04/13/22 23:59 23:59 23:59 23:59 Intake Total 2900 1000 Output Total 800 Balance 2100 1000 Meds/Results Medications: Active Medications Generic Name Dose Route Start Last Admin Trade Name Freq PRN Reason Stop Dose Admin Diazepam 5 mg 04/12/22 11:26 04/12/22 11:49 Diazepam Inj (*Crx) 10 Mg/2 Ml Syringe IV PUSH 5 mg BID PRN Administration Anxiety Fentanyl Citrate 25 mcg 04/13/22 08:48 Fentanyl Citrate Inj (*Crx) 100 Mcg/2 Ml Vial IV PUSH Q2M PRN Pain Hydralazine HCl 10 mg 04/12/22 11:26 Hydralazine Hcl 20 Mg/Ml Vial IV PUSH Q8H PRN Blood Pressure - High Hydromorphone HCl 0.5 mg 04/12/22 13:58 04/12/22 20:06 Hydromorphone Hcl Inj (*Crx) 1 Mg/Ml Syr IV PUSH 0.5 mg Q2H PRN Administration Pain Rated 7-10 Sodium Chloride 1,000 mls @ 125 mls/hr 04/12/22 03:35 04/13/22 04:59 Normal S
--- NOTE | 2022-04-13 13:39 | WPDHPUPDATE1 ---
History and Physical Update Update Date/Time: 04/13/22 13:39 History and Physical has been reviewed, including an updated exam of the patient. There are NO changes in the patient's condition. Risks, benefits, and alternatives have been discussed and questions answered. Patient agrees to proceed with procedure.
[2022-04-13] MEDS: ceFAZolin 2 GM/D5W 50 ML 2 GM/50 ML BAG IVPB (13:51)
[2022-04-13 14:00] LABS: Lipase 6267 U/L (23-300)
[2022-04-13] MEDS: BUPIVACAINE/EPINEPHRINE 0.25% 50 ML VIAL 30 ML INFILTRATE (14:44)
--- NOTE | 2022-04-13 15:01 | W.PM.PROC2 ---
Procedure Note - Detailed Date of Procedure 04/13/22 Pre-op Diagnosis Biliary acute pancreatitis Post-op Diagnosis Same Procedure Performed Laparoscopic cholecystectomy with intraoperative cholangiogram Surgeon Kris Duran MD Java Software Developer Carson FLETCHER Anesthesia General and Local (0.25% bupivacaine with epinephrine) Indications Patient presented yesterday with epigastric abdominal pain and a lipase of almost 36,000. CT scan showed acute pancreatitis and gallstones. Her pain is resolved today and she is taken to surgery now for laparoscopic cholecystectomy with intraoperative cholangiogram. She did have an MRCP yesterday which was negative for any common bile duct stones. Findings There was evidence of acute and chronic inflammation in the gallbladder. There were adhesions to the gallbladder. Gallbladder was distended and contained several stones. Intraoperative cholangiogram showed some filling defects in the common bile duct but these tended to change shape and size consistent with air bubbles. There was prompt duodenal filling. Node ductal dilatation was noted. Liver appeared normal. Description of Procedure Patient was taken to surgery and induced into general anesthesia. The abdomen is prepped and draped. Trocars were placed in usual fashion using local anesthetic and applied Medical optical trocars. A 5 mm camera was used. The gallbladder had a lot of omental adhesions. It had a greenish cast to it. These adhesions were taken down but were somewhat bloody. Eventually enough of the adhesions were taken down that we could decompress the gallbladder with a laparoscopic aspirator. The cholecystotomy was closed with a Vicryl endoloop. The gallbladder was then retracted anterosuperiorly and additional adhesions were taken down. Eventually enough adhesions were taken down that we could place traction on the infundibulum and began dissection in the cholecystohepatic triangle. The cystic duct and cystic artery were then dissected out very clearly. The cystic duct was dissected near the gallbladder so that a clip could be applied proximally. The cystic artery was then securely clipped and divided. A clip was placed on the very proximal cystic duct. The cystic duct scissors were then used to make a small opening in the proximal cystic duct. Cholangiogram catheter was then threaded into the cystic duct. Fluoroscopy was brought into the field. Cine fluoroscopy was performed and a cholangiogram was done with this technique. Findings are as above. I talked with the radiologist during the procedure with findings noted that no real stones were seen most likely the opacities were air bubbles. The cholangiogram catheter was removed. We securely clipped the cystic duct and divided it. The gallbladder was then dissected free of its attachments to the liver. Once it was freed, it was placed in an Endo-Catch bag and retrieved through the 10 11 epigastric trocar site. I then replaced the 10 11 trocar and we reviewed the right upper quadrant. It was irrigated and suctioned. There was no evidence of bleeding on the liver bed or from the adhesions that were taken down. Repeated irrigation and suctioning were performed in all looked good. There was no sign of any bile leak. We then evacuated CO2 and removed the trocar sleeves. Skin wounds were closed with subcuticular 4-0 Monocryl skin suture. The wounds were dressed with Exofin surgical adhesive. Patient was awakened and taken to recovery in good condition. Sponge and needle counts were correct x2. Estimated Blood Loss -20 Urine Output 800 Drains No Packing No Pathology Yes (Gallbladder) Complications No immediate complications Condition Stable Disposition PACU [facility] Billing Surgery - Charge Forward: Surgery Billing (Laparoscopic cholecystectomy with intraoperative cholangiogram)
[2022-04-13] MEDS: fentaNYL CITRATE INJ (*CRX) 100 MCG/2 ML VIAL 25 MCG IV PUSH ×6 (15:17→15:53)
--- NOTE | 2022-04-13 16:19 | WPDGIPROGNO ---
Progress Note: A&P Assessment and Plan (1) Gallstone pancreatitis: Code(s): K85.10 - Biliary acute pancreatitis without necrosis or infection Status: Acute Assessment and Plan: s/p lap vee with IOC- found filling defect but consistent with bubbles liver enzymes trending down with normalization of bilirubin (2) Upper abdominal pain: Code(s): R10.10 - Upper abdominal pain, unspecified Status: Acute (3) Transaminitis: Code(s): R74.01 - Elevation of levels of liver transaminase levels Status: Acute Assessment and Plan: trending down Subjective Date/time seen: 04/13/22 16:19 Interval history: s/p cholecystectomy Review of Systems Review of Systems: All systems reviewed & are unremarkable except as noted in HPI and below Exam Const: General: comfortable, no acute distress and awake Nutritional Appearance: overweight Orientation/consciousness: patient oriented x3 HENMT: Head: normocephalic and atraumatic Ears: hearing grossly normal bilaterally Mouth: Yes moist mucous membranes Eyes: General: appearance normal, both eyes and all related structures Sclera: sclerae normal Pupils: Equal, round and reactive pupils present EOM: EOMs intact bilaterally Neck: Neck: normal visual inspection Resp: Effort & Inspection: no respiratory distress Auscultation: clear to auscultation bilaterally Cardio: Rate: regular rate Rhythm: regular rhythm GI: Inspection: non-distended GI Palp: Yes Soft to palpation, No Guarding due to palpation present (GI) and No Rebound tenderness present Percussion: Yes normal to percussion Auscultation: normal bowel sounds Back/Spine/Pelvis: Back: no CVA tenderness Skin: General skin exam: normal color and no rashes or lesions noted Neuro: General: moves all extremities and no focal motor deficits Cranial nerves: Yes CN's II-XII intact bilaterally Speech: normal speech Motor exam (neuro): 5/5 motor strength present throughout Extrem: General: normal to inspection Psych: Mental Status: mental status grossly normal Affect: normal affect Attitude: cooperative Insight: Good insight present (Psych) Judgement: Good judgement present (Psych) Objective Data Vital Signs Vital Signs: Vital Signs - 24 hr 04/12/22 20:00 04/12/22 22:00 04/13/22 06:00 Temperature 97.5 F L 97.1 F L Pulse Rate 69 79 Respiratory Rate 14 14 Blood Pressure 135/81 140/67 Pulse Oximetry 97 100 Oxygen Delivery Room Air Oxygen Flow Rate 04/13/22 09:45 04/13/22 09:29 04/13/22 13:01 Temperature 97.2 F L 97.7 F Pulse Rate 69 76 Respiratory Rate 20 16 Blood Pressure 147/85 H 141/71 H Pulse Oximetry 100 100 Oxygen Delivery Room Air Room Air Oxygen Flow Rate 04/13/22 15:03 04/13/22 15:15 04/13/22 15:25 Temperature 98.2 F Pulse Rate 91 70 60 Respiratory Rate 18 18 19 Blood Pressure 117/54 L 128/74 123/75 Pulse Oximetry 100 100 100 Oxygen Delivery Simple Face Mask Simple Face Mask Simple Face Mask Oxygen Flow Rate 8 8 8 04/13/22 15:35 04/13/22 15:45 04/13/22 16:00 Temperature 97.4 F L Pulse Rate 73 66 64 Respiratory Rate 20 16 12 Blood Pressure 123/67 115/76 112/73 Pulse Oximetry 98 94 97 Oxygen Delivery Room Air Room Air Room Air Oxygen Flow Rate 04/13/22 16:10 Temperature Pulse Rate 76 Respiratory Rate 16 Blood Pressure 117/63 Pulse Oximetry 94 Oxygen Delivery Room Air Oxygen Flow Rate Intake/Output Intake/Output: Intake & Output 04/10/22 04/11/22 04/12/22 04/13/22 23:59 23:59 23:59 23:59 Intake Total 2900 1300 Output Total 800 800 Balance 2100 500 Meds/Results Medications: Active Medications Generic Name Dose Route Start Last Admin Trade Name Freq PRN Reason Stop Dose Admin Acetaminophen 500 mg 04/13/22 16:16 Acetaminophen 500 Mg Tablet PO Q6H PRN Mild Pain (1-3) or Fever Hydrocodone Bitart/Acetaminophen 1 tab 04/13/22 16:16 Hydrocodone/Acetaminophen (
[2022-04-13] MEDS: VENLAFAXINE HCL XR 75 MG CAP.ER.24H PO (17:54)
[2022-04-13] MEDS: HYDROcodone/acetaminophen (*CRX) 5-325 MG TABLET 1 TAB PO (18:59)
[2022-04-13] MEDS: LACTATED RINGERS 1,000 ML 80 ML IV CONT (18:59)
[2022-04-13] MEDS: FAMOTIDINE 20 MG/2 ML VIAL IV PUSH (21:02)
[2022-04-14 02:01] VITALS: BP 135/65; PULSE 73; RESP 20; TEMP 36.5; O2SAT 97
[2022-04-14] MEDS: LEVOTHYROXINE SODIUM 150 MCG TABLET PO (05:20)
[2022-04-14] MEDS: LACTATED RINGERS 1,000 ML 80 ML IV CONT (05:21)
[2022-04-14 05:54] VITALS: BP 128/60; PULSE 84; RESP 20; TEMP 36.4; O2SAT 99
[2022-04-14 06:28] LABS: Basophils Percent Auto 0.4 % (0.2-1.2); Eosinophils Absolute Auto 0.1 K/mm3 (0-0.3); Eosinophils Percent Auto 0.7 % (0-4.4); Hematocrit 36.5 % (37.0-47.0); Hemoglobin 12.4 g/dL (12.0-15.0); Immature Granulocyte Absolute 0.02 K/mm3 (0.00-0.031); Immature Granulocyte Percent A 0.3 % (0-0.5); Lymphocytes Absolute Auto 1.56 K/mm3 (0.9-3.2); Lymphocytes Percent Auto 20.6 % (18.3-44.2); Mean Corpuscular Hemoglobin 31.1 pg (26-34); Mean Corpuscular Volume 91.5 fl (80-100); Mean Platelet Volume 10.2 fl (7.4-10.4); Monocytes Absolute Auto 0.7 K/mm3 (0.1-0.6); Monocytes Percent Auto 9.6 % (2.6-8.5); Neutrophils Absolute Auto 5.2 K/mm3 (1.3-6.7); Neutrophils Percent Auto 68.4 % (45.5-73.1); Platelet Count Result 286 k/mm3 (150-375); Red Blood Count 3.99 M/mm3 (4.2-5.4); Red Cell Distribution Width 12.4 % (11.5-14.5); White Blood Count 7.6 K/mm3 (4.5-10.0)
[2022-04-14 06:42] LABS: Alanine Aminotransferase 161 U/L (6-35); Albumin Level 3.5 g/dL (3.5-5.1); Alkaline Phosphatase 52 U/L (38-126); Anion Gap 9 mmol/L (8-16); Aspartate Amino Transferase 63 U/L (14-36); Bilirubin,Total 0.9 mg/dL (0.2-1.3); Blood Urea Nitrogen 6 mg/dL (7-17); Carbon Dioxide 26 mmol/L (22-30); Chloride 104 mmol/L (98-107); Estimated CRCL calculation 149 ml/min; Estimated Glomerular Filt Rate > 60; Glucose 94 mg/dL (65-110); Lipase 572 U/L (23-300); Magnesium 1.8 mg/dL (1.6-2.3); Potassium 3.3 mmol/L (3.4-5.0); Sodium 139 mmol/L (137-145)
[2022-04-14 07:14] LABS: Hepatitis B Surface Antigen Negative (Negative)
[2022-04-14 07:20] LABS: HAV RESULT Negative (Negative); Hepatitis B Core IgM Result Negative (Negative)
[2022-04-14 07:31] LABS: Hepatitis C Virus Antibody Negative (Negative)
[2022-04-14 08:46] VITALS: PULSE 82
[2022-04-14] MEDS: carvediloL 6.25 MG TABLET PO (08:46)
[2022-04-14] MEDS: VENLAFAXINE HCL XR 75 MG CAP.ER.24H PO (08:48)
[2022-04-14] MEDS: LIOTHYRONINE SODIUM 5 MCG TABLET PO (08:48)
[2022-04-14] MEDS: FAMOTIDINE 20 MG/2 ML VIAL IV PUSH (08:48)
[2022-04-14] MEDS: ENOXAPARIN 40 MG/0.4 ML SYRINGE SUB-Q (08:49)
--- NOTE | 2022-04-14 09:15 | P.DS_ITS ---
DS: Admitting Diagnosis Discharge Date 04/14/22 0915 Admitting Diagnosis Acute pancreatitis DS: Discharge Diagnosis Discharge Diagnosis (1) Acute pancreatitis: Code(s): K85.90 - Acute pancreatitis without necrosis or infection, unspecified Status: Acute Assessment and Plan: * Ct of the abd/pelvis shows Mild peripancreatic inflammatory stranding consistent with acute interstitial pancreatitis. Correlate with amylase and lipase levels. Dilation of the gallbladder with subtle inflammatory stranding to the pericholecystic fat consistent with acute cholecystitis. Mild intra and extrahepatic biliary ductal dilation without evident obstructing lesion. Could consider MRCP for further evaluation. * ABD Pelvis ultrasound Gallbladder contains gallstones and sludge. * General surgery consulted thank you for your help * GI consulted thank you for your help * IV fluids * NPO diet for now * HCTZ on hold * Lipase 77693, trending down and is currently 6267 * Gallbladder removed today * Trend lipase * Pain medications on board (2) Cholelithiasis: Code(s): K80.20 - Calculus of gallbladder without cholecystitis without obstruction Status: Acute Assessment and Plan: * Ct of the abd/pelvis shows Mild peripancreatic inflammatory stranding consistent with acute interstitial pancreatitis. Correlate with amylase and lipase levels. Dilation of the gallbladder with subtle inflammatory stranding to the pericholecystic fat consistent with acute cholecystitis. Mild intra and extrahepatic biliary ductal dilation without evident obstructing lesion. Could consider MRCP for further evaluation. * ABD Pelvis ultrasound Gallbladder contains gallstones and sludge. * General surgery consulted thank you for your help * GI consulted thank you for your help * IV fluids * NPO diet for now * MRCP No intrahepatic or extrahepatic biliary dilatation. No stones or stricture of the common bile duct, Findings consistent with acute pancreatitis., Cholelithiasis and cholecystitis, possibly secondary to pancreatitis. * Liver enzymes elevated * Gallbladder removed (3) Transaminitis: Code(s): R74.01 - Elevation of levels of liver transaminase levels Status: Acute Assessment and Plan: * AST/ALT elevated at 141/252 * Hep panel in the am * RUQ ultrasound showed stones (4) Hyperlipidemia: Qualifiers: Hyperlipidemia type: mixed hyperlipidemia Qualified Code(s): E78.2 - Mixed hyperlipidemia Code(s): E78.5 - Hyperlipidemia, unspecified Status: Acute Assessment and Plan: * Hold atorvastatin for now since her liver enzymes are elevated (5) Adult hypothyroidism: Code(s): E03.9 - Hypothyroidism, unspecified Status: Acute Assessment and Plan: * Hold oral medications while NPO * Restart when appropriate (6) HTN (hypertension): Qualifiers: Hypertension type: essential hypertension Qualified Code(s): I10 - Essential (primary) hypertension Code(s): I10 - Essential (primary) hypertension Status: Acute Assessment and Plan: * BP is currently 123/75 * Hold oral medications for now * Trend BP * Hydralazine PRN for BP elevation * Adjust therapy as indicated DS: Summary Hospital Course Hospital Course: Patient is a 52-year-old female with past medical history of h
--- NOTE | 2022-04-14 09:15 | PM.DS ---
DS: Admitting Diagnosis Discharge Date 04/14/22 0915 Admitting Diagnosis Acute pancreatitis DS: Discharge Diagnosis Discharge Diagnosis (1) Acute pancreatitis: Code(s): K85.90 - Acute pancreatitis without necrosis or infection, unspecified Status: Acute Assessment and Plan: Ct of the abd/pelvis shows Mild peripancreatic inflammatory stranding consistent with acute interstitial pancreatitis. Correlate with amylase and lipase levels. Dilation of the gallbladder with subtle inflammatory stranding to the pericholecystic fat consistent with acute cholecystitis. Mild intra and extrahepatic biliary ductal dilation without evident obstructing lesion. Could consider MRCP for further evaluation. ABD Pelvis ultrasound Gallbladder contains gallstones and sludge. General surgery consulted thank you for your help GI consulted thank you for your help IV fluids NPO diet for now HCTZ on hold Lipase 44312, trending down and is currently 6267 Gallbladder removed today Trend lipase Pain medications on board (2) Cholelithiasis: Code(s): K80.20 - Calculus of gallbladder without cholecystitis without obstruction Status: Acute Assessment and Plan: Ct of the abd/pelvis shows Mild peripancreatic inflammatory stranding consistent with acute interstitial pancreatitis. Correlate with amylase and lipase levels. Dilation of the gallbladder with subtle inflammatory stranding to the pericholecystic fat consistent with acute cholecystitis. Mild intra and extrahepatic biliary ductal dilation without evident obstructing lesion. Could consider MRCP for further evaluation. ABD Pelvis ultrasound Gallbladder contains gallstones and sludge. General surgery consulted thank you for your help GI consulted thank you for your help IV fluids NPO diet for now MRCP No intrahepatic or extrahepatic biliary dilatation. No stones or stricture of the common bile duct, Findings consistent with acute pancreatitis., Cholelithiasis and cholecystitis, possibly secondary to pancreatitis. Liver enzymes elevated Gallbladder removed (3) Transaminitis: Code(s): R74.01 - Elevation of levels of liver transaminase levels Status: Acute Assessment and Plan: AST/ALT elevated at 141/252 Hep panel in the am RUQ ultrasound showed stones (4) Hyperlipidemia: Qualifiers: Hyperlipidemia type: mixed hyperlipidemia Qualified Code(s): E78.2 - Mixed hyperlipidemia Code(s): E78.5 - Hyperlipidemia, unspecified Status: Acute Assessment and Plan: Hold atorvastatin for now since her liver enzymes are elevated (5) Adult hypothyroidism: Code(s): E03.9 - Hypothyroidism, unspecified Status: Acute Assessment and Plan: Hold oral medications while NPO Restart when appropriate (6) HTN (hypertension): Qualifiers: Hypertension type: essential hypertension Qualified Code(s): I10 - Essential (primary) hypertension Code(s): I10 - Essential (primary) hypertension Status: Acute Assessment and Plan: BP is currently 123/75 Hold oral medications for now Trend BP Hydralazine PRN for BP elevation Adjust therapy as indicated DS: Summary Hospital Course Hospital Course: Patient is a 52-year-old female with past medical history of hypo thyroidism, hypotension, DVT, GERD who presented to the ED with severe abdominal pain. Upon arrival patient was noted to have a lipase of 35,990. CT of the abdomen did show acute pancreatitis with cholelithiasis. General surgery was consulted for further evaluation of cholelithiasis and GI was consulted for possible stone obstruction. MRCP was done and did show cholelithiasis and cholecystitis creating pancreatitis. General surgery did go through with the surgery of the cholecystectomy and patient has been doing okay. Pain was controlled pain me
[2022-04-14 10:01] VITALS: BP 127/62; PULSE 82; RESP 20; TEMP 36.2; O2SAT 100
--- NOTE | 2022-04-14 12:42 | PM.PNGS ---
Progress Note: A&P Assessment and Plan (1) Gallstone pancreatitis: Code(s): K85.10 - Biliary acute pancreatitis without necrosis or infection Status: Acute Assessment and Plan: doing well after laparoscopic cholecystectomy. Cholangiogram was negative. Okay to discharge from my perspective. Please see discharge orders. (2) Anticoagulated by anticoagulation treatment: Code(s): Z79.01 - assistant terminal manager (current) use of anticoagulants Status: Acute Assessment and Plan: Okay to resume Xarelto tomorrow. (3) PFO (patent foramen ovale): Code(s): Q21.1 - Atrial septal defect Status: Acute Subjective Subjective Date/Time Seen: 04/14/22 12:42 Post Op day: 1 Patient reports: no new complaints, pain is less and afebrile Interval history: Feels good status post laparoscopic cholecystectomy yesterday. Minimal pain. Ambulating. Tolerating oral intake. Review of Systems Review of Systems: All systems reviewed & are unremarkable except as noted in HPI and below ( HPI) Exam Const: General: comfortable, no acute distress, alert and awake Nutritional Appearance: obese Orientation/consciousness: patient oriented x3 GI: Inspection: non-distended and incision ( all incisions dry and healing well) GI Palp: Yes Soft to palpation and Yes Tenderness to palpation present (GI) ( minimal appropriate tenderness) Auscultation: normal bowel sounds Objective Data Vital Signs Vital Signs: Vital Signs - 24 hr 04/13/22 13:01 04/13/22 15:03 04/13/22 15:15 Temperature 36.5 C 36.8 C Pulse Rate 76 91 70 Respiratory Rate 16 18 18 Blood Pressure 141/71 H 117/54 L 128/74 Pulse Oximetry 100 100 100 Oxygen Delivery Room Air Simple Face Mask Simple Face Mask Oxygen Flow Rate 8 8 04/13/22 15:25 04/13/22 15:35 04/13/22 15:45 Temperature 36.3 C L Pulse Rate 60 73 66 Respiratory Rate 19 20 16 Blood Pressure 123/75 123/67 115/76 Pulse Oximetry 100 98 94 Oxygen Delivery Simple Face Mask Room Air Room Air Oxygen Flow Rate 8 04/13/22 16:00 04/13/22 16:10 04/13/22 16:16 Temperature 36.0 C L Pulse Rate 64 76 82 Respiratory Rate 12 16 18 Blood Pressure 112/73 117/63 134/70 Pulse Oximetry 97 94 97 Oxygen Delivery Room Air Room Air Oxygen Flow Rate 04/13/22 16:31 04/13/22 17:01 04/13/22 18:01 Temperature 35.8 C L 35.8 C L 36.0 C L Pulse Rate 62 82 96 Respiratory Rate 18 16 18 Blood Pressure 145/79 H 150/83 H 165/72 H Pulse Oximetry 96 97 97 Oxygen Delivery Oxygen Flow Rate 04/13/22 22:01 04/14/22 02:01 04/14/22 05:54 Temperature 36.7 C 36.5 C 36.4 C L Pulse Rate 84 73 84 Respiratory Rate 20 20 20 Blood Pressure 126/57 L 135/65 128/60 Pulse Oximetry 96 97 99 Oxygen Delivery Oxygen Flow Rate 04/14/22 08:46 04/14/22 08:48 Temperature Pulse Rate 82 Respiratory Rate Blood Pressure Pulse Oximetry Oxygen Delivery Room Air Oxygen Flow Rate Intake/Output Intake/Output: Intake & Output 04/11/22 04/12/22 04/13/22 04/14/22 23:59 23:59 23:59 23:59 Intake Total 2900 1420 1680 Output Total 800 800 Balance 2100 620 1680 Meds/Results Medications: Active Medications Generic Name Dose Route Start Last Admin Trade Name Freq PRN Reason Stop Dose Admin Acetaminophen 500 mg 04/13/22 16:16 Acetaminophen 500 Mg Tablet PO Q6H PRN Mild Pain (1-3) or Fever Hydrocodone Bitart/Acetaminophen 1 tab 04/13/22 16:16 04/13/22 18:59 Hydrocodone/Acetaminophen (*Crx) 5-325 Mg Tablet PO 1 tab Q4H PRN Administration Pain Rated 4-6 Hydrocodone Bitart/Acetaminophen 1 tab 04/13/22 16:16 Hydrocodone/Acetaminophen (*Crx) 10-325 Mg Tablet PO Q4H PRN Pain Rated 7-10 Carvedilol 6.25 mg 04/14/22 09:00 04/14/22 08:46 Carvedilol 6.25 Mg Tablet PO 6.25 mg DAILY XIMENA Administration Diazepam 5 mg 04/12/22 11:26 04/12/22 11:49 Diazepam Inj (*Crx) 10 Mg/2 Ml Syringe IV PUSH 5 mg BID PRN
== END 2022-04-14 14:15 | disposition home or self-care (01) | DRG 418 ==
LOC: ANHED 03:39 → ANH3MEDSUR 04:04
PROVIDERS: Surgery; Admitting Provider Internal Medicine; Emergency Provider General Practice; PCP Family Medicine; Visit Provider Nurse Practitioner
PROC: 0FT44ZZ Resection of Gallbladder, Percutaneous Endoscopic Approach (ICD-10-PCS; CPT 47562; principal; 2022-04-13 13:30)
DX: K85.10 Biliary acute pancreatitis without necrosis or infection (principal); K80.10 Calculus of gallbladder with chronic cholecystitis without obstruction; Q21.1 Atrial septal defect; K80.20 Calculus of gallbladder without cholecystitis without obstruction; Z20.822 Contact with and (suspected) exposure to COVID-19; D17.39 Benign lipomatous neoplasm of skin and subcutaneous tissue of other sites; E78.2 Mixed hyperlipidemia; E03.9 Hypothyroidism, unspecified; E66.01 Morbid (severe) obesity due to excess calories; I10 Essential (primary) hypertension; I95.9 Hypotension, unspecified; K82.8 Other specified diseases of gallbladder; K21.9 Gastro-esophageal reflux disease without esophagitis; J45.909 Unspecified asthma, uncomplicated; R74.01 Elevation of levels of liver transaminase levels; Z86.718 Personal history of other venous thrombosis and embolism; Z68.37 Body mass index [BMI] 37.0-37.9, adult; Z86.73 Personal history of transient ischemic attack (TIA), and cerebral infarction without residual deficits; Z79.01 Long term (current) use of anticoagulants
CPT/HCPCS: 36415; 74177; 74183; 74300; 76376; 76705; 80053; 80074; 81001; 83690; 83735; 85025; 86850; 86900; 86901; 88304; 96361; 96374; 96375; 99285; A9270; A9577; C1713; C9803; J0690; J1100; J1170; J1650; J2210; J2250; J2405; J2704; J2710; J3010; J3360; J7030; J7120; Q9966; Q9967; U0003; U0005

== ENCOUNTER 2022-11-18 06:44 | Outpatient (CLI) | payer OTHER, SELFPAY ==
[2022-11-18 07:10] LABS: Basophils Percent Auto 0.7 % (0.2-1.2); Eosinophils Absolute Auto 0.5 K/mm3 (0-0.3); Eosinophils Percent Auto 9.7 % (0-4.4); Hematocrit 40.5 % (37.0-47.0); Hemoglobin 13.5 g/dL (12.0-15.0); Immature Granulocyte Absolute 0.01 K/mm3 (0.00-0.031); Immature Granulocyte Percent A 0.2 % (0-0.5); Lymphocytes Absolute Auto 1.37 K/mm3 (0.9-3.2); Lymphocytes Percent Auto 25.1 % (18.3-44.2); Mean Corpuscular HGB Conc 33.3 g/dl (32-36); Mean Corpuscular Hemoglobin 29.9 pg (26-34); Mean Corpuscular Volume 89.8 fl (80-100); Mean Platelet Volume 10.6 fl (7.4-10.4); Monocytes Absolute Auto 0.4 K/mm3 (0.1-0.6); Monocytes Percent Auto 8.1 % (2.6-8.5); Neutrophils Absolute Auto 3.1 K/mm3 (1.3-6.7); Neutrophils Percent Auto 56.2 % (45.5-73.1); Platelet Count Result 335 k/mm3 (150-375); Red Blood Count 4.51 M/mm3 (4.2-5.4); Red Cell Distribution Width 12.6 % (11.5-14.5); White Blood Count 5.5 K/mm3 (4.5-10.0)
[2022-11-18 07:21] LABS: Alanine Aminotransferase 85 U/L (6-35); Alkaline Phosphatase 79 U/L (38-126); Anion Gap 6 mmol/L (8-16); Aspartate Amino Transferase 38 U/L (14-36); Bilirubin,Total 0.6 mg/dL (0.2-1.3); Blood Urea Nitrogen 10 mg/dL (7-17); Calcium 8.6 mg/dL (8.4-10.2); Carbon Dioxide 31 mmol/L (22-30); Chloride 103 mmol/L (98-107); Cholesterol 101 mg/dL (0-200); Estimated Glomerular Filt Rate > 60; Glucose 91 mg/dL (65-110); HDL Direct 51 mg/dL; Potassium 3.9 mmol/L (3.4-5.0); Sodium 140 mmol/L (137-145); Triglycerides 57 mg/dL (<150)
[2022-11-18 07:24] LABS: Hemoglobin A1C 5.2 % (<5.7)
[2022-11-18 07:32] LABS: LDL Cholesterol Direct 35 mg/dL
[2022-11-18 09:33] LABS: Free T4 Free Thyroxine 1.18 ng/mL (0.78-2.19)
== END 2022-11-18 06:45 | disposition home or self-care (01) ==
LOC: ANHLAB 06:46
PROVIDERS: PCP Family Medicine; Visit Provider Family Medicine
DX: E03.9 Hypothyroidism, unspecified (principal); I10 Essential (primary) hypertension; E78.2 Mixed hyperlipidemia; E11.9 Type 2 diabetes mellitus without complications
CPT/HCPCS: 36415; 80053; 80061; 83036; 84439; 84443; 84480; 85025

== ENCOUNTER 2023-02-03 08:11 | Emergency (ER) | payer OTHER, SELFPAY ==
--- NOTE | 2023-02-03 08:14 | ED.URI ---
HPI - URI/Sore Throat General Chief Complaint: Ear Stated Complaint: SINUS PAIN/EARACHE Time Seen by Provider: 02/03/23 08:14 Source: patient and RN notes reviewed History of Present Illness HPI Narrative: Patient is a 52-year-old female presents to urgent care with complaints of frontal sinus pressure and left earache. Patient states that it started 2 days ago and she has been taking Sudafed and Zicam. Patient states that she has had a ?terrible allergy season?. Patient denies any cough or fever. No other acute complaints. No acute distress noted. Patient aware of the plan of care. Some parts of this dictation were generated by voice recognition software and may contain typographical and/or grammatical inaccuracies. Related Data Home Medications Medication Instructions Recorded Confirmed venlafaxine 75 mg capsule,extended 225 mg PO DAILY 08/25/19 02/03/23 release 24 hr carvedilol 12.5 mg tablet (Coreg) 12.5 mg PO Q12H 10/11/22 02/03/23 aspirin 81 mg tablet,delayed 81 mg PO DAILY 02/03/23 02/03/23 release hydrochlorothiazide 12.5 mg capsule 12.5 mg PO BID 02/03/23 02/03/23 Allergies Allergy/AdvReac Type Severity Reaction Status Date / Time gentamicin Allergy Unknown Eye Verified 02/03/23 08:22 Irriation Review of Systems Review of Systems: CONSTITUTIONAL: Denies fever, chills, or sweats. EYES: Denies visual changes, redness, or discharge. ENT: Reports left otalgia, congestion, frontal sinus pressure CARDIOVASCULAR: Denies chest pain, palpitations, or edema. RESPIRATORY: Denies cough or dyspnea. GASTROINTESTINAL: Denies abdominal pain, nausea, vomiting, or diarrhea. GENITOURINARY: Denies dysuria or hematuria. SKIN: Denies rash or itching. MUSCULOSKELETAL: Denies back pain, joint pain, or myalgia. NEUROLOGIC: Denies headache, numbness, or weakness. All other systems reviewed are negative, except as documented in HPI. 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 Upper abdominal pain Surgical History Surgical History History of delivery History of Roxann fundoplication Hx laparoscopic cholecystectomy Laparoscopic cholecystectomy with intraoperative cholangiogram 04/13/22 Family History Family History Father Hypertension Family history of elevated blood lipids Mother Family history of lung cancer Other Family history of arthritis Family history of cardiovascular disease Family history of malignant neoplasm Social History Social History Social History: Patient is currently to her Dexter of 26 years. They have 3 children that were boys however 1 is going through a sex change and is transgender. Her oldest son is 27 and her 2 younger sons are twins at 26. She currently wishes to be a full code and Dexter would be her surrogate. Smoking status: Never smoker Second hand tobacco smoke exposure: No Alcohol intake: current Alcohol use details: Once a month Substance use: never Substance use type: does not use Lack of Transportation: No Lack of Food: Never True Current Housing: I Have Housing Concerned About Future Housing: No Difficulty Paying Gas/Electric Bills: No Currently Unemployed: No Education: Bachelor's Degree Difficulty w/ Childca
[2023-02-03 08:23] VITALS: BP 103/68; PULSE 83; RESP 16; TEMP 36.4; O2SAT 100
[2023-02-03 08:24] VITALS: BP 103/68; PULSE 83; RESP 16; TEMP 36.4; O2SAT 100
== END 2023-02-03 08:42 | disposition home or self-care (01) ==
PROVIDERS: Emergency Provider Nurse Practitioner Family; PCP Family Medicine
DX: J00 Acute nasopharyngitis [common cold] (principal); E03.9 Hypothyroidism, unspecified; J45.909 Unspecified asthma, uncomplicated; Z86.718 Personal history of other venous thrombosis and embolism; K21.9 Gastro-esophageal reflux disease without esophagitis; I10 Essential (primary) hypertension; E66.01 Morbid (severe) obesity due to excess calories; Z68.38 Body mass index [BMI] 38.0-38.9, adult; Z86.73 Personal history of transient ischemic attack (TIA), and cerebral infarction without residual deficits
CPT/HCPCS: 99211; G0463

== ENCOUNTER 2023-06-12 07:45 | Outpatient (CLI) | payer OTHER, SELFPAY ==
--- NOTE | ~2023-06-12 | MM_ITS ---
EXAMINATION: MM screening bunny BI w wyatt HISTORY: Screening mammogram TECHNIQUE: Craniocaudal and mediolateral oblique 3-D tomosynthesis images were obtained and synthetic 2-D images were generated. CAD analysis was submitted and interpreted. COMPARISON: 02/10/2021 bilateral screening mammogram 09/12/2019 and 02/25/2019 diagnostic left mammogram and limited left breast ultrasound 02/03/2019 bilateral screening mammogram BREAST PARENCHYMAL COMPOSITION: There are scattered areas of fibroglandular density. FINDINGS: There is no evidence of suspicious mass, calcification, or architectural distortion to sugg est malignancy in either breast. There has been no suspicious interval change. IMPRESSION: 1. No mammographic evidence of malignancy. 2. Recommend routine screening mammography in one year. BI-RADS Category 1: Negative Reviewed, dictated and finalized at location A.
== END 2023-06-12 07:46 | disposition home or self-care (01) ==
PROVIDERS: PCP Family Medicine; Visit Provider Nurse Practitioner Gerontology
DX: Z12.31 Encounter for screening mammogram for malignant neoplasm of breast (principal)
CPT/HCPCS: 77063; 77067

== ENCOUNTER 2023-08-27 08:05 | Emergency (ER) | payer OTHER, SELFPAY ==
[2023-08-27 08:09] VITALS: BP 113/88; PULSE 69; RESP 20; TEMP 35.7; O2SAT 98
--- NOTE | 2023-08-27 08:14 | ED.URI ---
HPI - URI/Sore Throat General Chief Complaint: Upper Respiratory Infection Stated Complaint: Sinus Infection Time Seen by Provider: 08/27/23 08:25 Source: patient, RN notes reviewed and old records reviewed Mode of arrival: ambulatory Limitations: no limitations History of Present Illness HPI Narrative: 53-year-old female presents to [facility] with complaints of cough, sinus congestion, headache, sinus pressure, bilateral ear pressure that started yesterday. Patient taking Sudafed and Tylenol with no relief. Patient denies chest pain, weakness, dizziness, shortness of breath, vomiting. patient states took COVID test at home yesterday that was negative MD elicited complaint: cough and nasal congestion Onset (ago): day(s) (1) Related Data Home Medications Medication Instructions Recorded Confirmed venlafaxine 75 mg capsule,extended 225 mg PO DAILY 08/25/19 06/12/23 release 24 hr carvedilol 12.5 mg tablet (Coreg) 12.5 mg PO Q12H 10/11/22 06/12/23 aspirin 81 mg tablet,delayed 81 mg PO DAILY 02/03/23 06/12/23 release lorazepam 1 mg tablet 1 mg PO 03/27/23 06/12/23 Allergies Allergy/AdvReac Type Severity Reaction Status Date / Time gentamicin Allergy Unknown Eye Verified 08/27/23 08:16 Irriation Review of Systems Constitutional: Constitutional: Reports no additional constitutional complaints Eyes: Eyes: Reports no additional eye complaints ENT: Reports as per HPI, Denies vertigo, Denies dizziness, Reports otalgia, Reports headache(s) and Reports nasal congestion Cardiovascular: Cardiovascular: Reports no additional cardiovascular complaints Respiratory: Respiratory: Reports as per HPI, Reports cough, Denies pain on inspiration, Denies pain with cough and Denies dyspnea Neurologic: Reports system reviewed and no additional complaints, except as documented [facility] Past Medical History Medical History Adult hypothyroidism ASD (atrial septal defect) Asthma BMI 38.0-38.9,adult Cholelithiasis with chronic cholecystitis Class 2 obesity with body mass index (BMI) of 37.0 to 37.9 in adult DVT (deep venous thrombosis) Encounter for surgical aftercare following surgery on the digestive system Gallstone pancreatitis GERD (gastroesophageal reflux disease) Hiatal hernia HTN (hypertension) Morbid obesity PFO (patent foramen ovale) TIA (transient ischemic attack) 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 Upper abdominal pain Surgical History Surgical History History of delivery History of Roxann fundoplication Hx laparoscopic cholecystectomy Laparoscopic cholecystectomy with intraoperative cholangiogram 04/13/22 Family History Family History Father Hypertension Family history of elevated blood lipids Mother Family history of lung cancer Other Family history of arthritis Family history of cardiovascular disease Family history of malignant neoplasm Social History Social History Social History: Patient is currently to her Dexter of 26 years. They have 3 children that were boys however 1 is going through a sex change and is transgender. Her oldest son is 27 and her 2 younger sons are twins at 26. She currently wishes to be a full code and Dexter would be her surrogate. Smoking status: Never smoker Second hand tobacco smoke exposure: No Alcohol intake: current Alcohol use details: Once a month Substance use: never Substance use type: does not use Lack of Transportation: No Lack of Food: Never True Current Housing: I Have Housing Concerned About Future Housing: No Difficulty Paying Gas/Electric Bills: No Currently Unemployed: No Education: Bachelor's Degree Difficulty w/ Childcare or Family Care: No Living arrangements: with family
== END 2023-08-27 08:39 | disposition home or self-care (01) ==
PROVIDERS: Emergency Provider Registered Nurse; PCP Family Medicine
DX: J06.9 Acute upper respiratory infection, unspecified (principal); Z20.822 Contact with and (suspected) exposure to COVID-19; E03.9 Hypothyroidism, unspecified; J45.909 Unspecified asthma, uncomplicated; E66.01 Morbid (severe) obesity due to excess calories; Z68.39 Body mass index [BMI] 39.0-39.9, adult; K21.9 Gastro-esophageal reflux disease without esophagitis; I10 Essential (primary) hypertension; Z86.73 Personal history of transient ischemic attack (TIA), and cerebral infarction without residual deficits; Z86.718 Personal history of other venous thrombosis and embolism; Z79.82 Long term (current) use of aspirin
CPT/HCPCS: 87426; 87804; 99213; C9803; G0463

== ENCOUNTER 2023-12-31 08:07 | Outpatient (CLI) | payer OTHER, SELFPAY ==
--- NOTE | ~2023-12-31 | XR_ITS ---
XR chest 2V 12/31/2023 08:18 Indication: Dyspnea Procedure: 2 view chest Comparison: No prior studies for comparison. Findings: Possible left hilar lymphadenopathy. Recommend correlation with CT chest with contrast. No focal pneumonia, pleural effusion, edema or pneumothorax. Impression: 1: Possible left hilar lymphadenopathy. Recommend correlation with CT chest with contrast. Reviewed, dictated and finalized at location A. Impression: 1: Possible left hilar lymphadenopathy. Recommend correlation with CT chest wit h contrast.
== END 2023-12-31 08:08 ==
LOC: MICIMG 08:09
PROVIDERS: PCP Family Medicine; Visit Provider Physician Assistant
DX: R06.00 Dyspnea, unspecified (principal)
CPT/HCPCS: 71046

== ENCOUNTER 2024-01-01 06:48 | Outpatient (CLI) | payer OTHER, SELFPAY ==
[2024-01-01 07:37] LABS: Basophils Absolute Auto 0.1 K/mm3 (0.0-0.1); Eosinophils Absolute Auto 0.5 K/mm3 (0-0.3); Eosinophils Percent Auto 8.9 % (0-4.4); Hematocrit 42.3 % (37.0-47.0); Hemoglobin 13.9 g/dL (12.0-15.0); Immature Granulocyte Absolute 0.02 K/mm3 (0.00-0.031); Immature Granulocyte Percent A 0.3 % (0-0.5); Lymphocytes Absolute Auto 1.52 K/mm3 (0.9-3.2); Lymphocytes Percent Auto 25.5 % (18.3-44.2); Mean Corpuscular HGB Conc 32.9 g/dl (32-36); Mean Corpuscular Hemoglobin 30.3 pg (26-34); Mean Corpuscular Volume 92.2 fl (80-100); Mean Platelet Volume 10.4 fl (7.4-10.4); Monocytes Absolute Auto 0.4 K/mm3 (0.1-0.6); Monocytes Percent Auto 7.4 % (2.6-8.5); Neutrophils Absolute Auto 3.4 K/mm3 (1.3-6.7); Neutrophils Percent Auto 56.9 % (45.5-73.1); Platelet Count Result 358 k/mm3 (150-375); Red Blood Count 4.59 M/mm3 (4.2-5.4); Red Cell Distribution Width 13.1 % (11.5-14.5)
[2024-01-01 08:48] LABS: Alanine Aminotransferase 19 U/L (6-35); Albumin Level 4.3 g/dL (3.5-5.1); Alkaline Phosphatase 55 U/L (38-126); Anion Gap 7 mmol/L (4-12); Aspartate Amino Transferase 22 U/L (14-36); Bilirubin,Total 0.7 mg/dL (0.2-1.3); Blood Urea Nitrogen 14 mg/dL (7-17); Calcium 9.4 mg/dL (8.4-10.2); Carbon Dioxide 26 mmol/L (22-30); Chloride 105 mmol/L (98-107); Cholesterol 138 mg/dL (0-200); Estimated Glomerular Filt Rate > 60; Glucose 96 mg/dL (65-110); HDL Direct 61 mg/dL; Potassium 4.2 mmol/L (3.4-5.0); Sodium 138 mmol/L (137-145); Triglycerides 81 mg/dL (<150)
[2024-01-01 08:56] LABS: LDL Cholesterol Direct 68 mg/dL
[2024-01-01 09:46] LABS: Free T4 Free Thyroxine 1.24 ng/mL (0.78-2.19)
[2024-01-02 17:43] LABS: Triiodothyronine T3 Free 3.1 pg/mL (2.3-4.2)
== END 2024-01-01 06:49 | disposition home or self-care (01) ==
LOC: ANHLAB 06:49
PROVIDERS: PCP Family Medicine; Visit Provider Physician Assistant
DX: E07.9 Disorder of thyroid, unspecified (principal); E78.5 Hyperlipidemia, unspecified; E03.9 Hypothyroidism, unspecified; I10 Essential (primary) hypertension; R74.8 Abnormal levels of other serum enzymes
CPT/HCPCS: 36415; 80053; 80061; 84439; 84443; 84481; 85025

== ENCOUNTER 2024-01-09 09:13 | Outpatient (CLI) | payer OTHER, SELFPAY ==
--- NOTE | ~2024-01-09 | CT_ITS ---
Clinical Indication: Lymphadenopathy CT Scan of the Chest with Contrast: Technique: Contiguous sections were acquired throughout the chest after intravenous administration of 75 cc of Omnipaque 350. Dose reduction technique was used on this scan by utilizing automated exposu re control and iterative reconstruction technique. The dose-length product (DLP) was 618.14 mGy-cm. Findings: There is no evidence of any significant mediastinal, hilar or axillary lymphadenopathy. Vascular stru ctures are unremarkable. There is no evidence of aortic dissection or aneurysm. There is no evidence of pleural or pericardial effusion. The lungs are clear. No pulmonary nodules or infiltrates are noted. Images through the upper abdomen reveal no abnormalities. Impression: No significant abnormality seen. Reviewed, dictated and finalized at [facility]. Impression: No significant abnormality seen.
[2024-01-09 09:37] LABS: Estimated Glomerular Filt Rate > 60
== END 2024-01-09 09:14 ==
PROVIDERS: PCP Family Medicine; Visit Provider Physician Assistant
DX: R59.0 Localized enlarged lymph nodes (principal)
CPT/HCPCS: 71260; Q9967

== ENCOUNTER 2024-07-18 07:52 | Outpatient (CLI) | payer OTHER, SELFPAY ==
--- NOTE | ~2024-07-18 | MM_ITS ---
EXAMINATION: MM screening bunny BI w wyatt HISTORY: Screening mammogram TECHNIQUE: Craniocaudal and mediolateral oblique 3-D tomosynthesis images were obtained and synthetic 2-D images were generated. CAD analysis was submitted and interpreted. COMPARISON: 06/12/2023, 02/10/2021 BREAST PARENCHYMAL COMPOSITION:Not Dense. The breasts are almost entirely fatty FINDINGS: No suspicious mass, calcification, or architectural distortion are identified in either teresita ast to suggest malignancy. There has been no suspicious interval change. IMPRESSION: No mammographic evidence of malignancy. Recommend routine screening mammography in one year. BI-RADS Category 1: Negative Reviewed, dictated and finalized at location .
== END 2024-07-18 07:53 | disposition home or self-care (01) ==
LOC: ANHIMG 07:55
PROVIDERS: PCP Family Medicine; Visit Provider Student in an Organized Health Care Education/Training Program
DX: Z12.31 Encounter for screening mammogram for malignant neoplasm of breast (principal)
CPT/HCPCS: 77063; 77067

== ENCOUNTER 2024-08-13 09:37 | Outpatient (CLI) | payer OTHER, SELFPAY ==
--- NOTE | ~2024-08-13 | US_ITS ---
EXAMINATION: US venous doppler LE RT DATE: 08/13/2024 10:11 INDICATION: Right calf pain. Other specified soft tissue disorders. TECHNIQUE: Grayscale ultrasound images without and with compression and Doppler ultrasound images of the right lower extremity veins were obtained. COMPARISON: None. FINDINGS: The visualized portions of right common femoral vein, profunda (deep) femoral vein, femoral vein, pop liteal vein, peroneal veins, posterior tibial veins, and greater saphenous vein outflow are patent. IMPRESSION: 1. No deep venous thrombosis. Reviewed, dictated and finalized at location A. NT CONSULTANT
== END 2024-08-13 09:38 | disposition home or self-care (01) ==
PROVIDERS: PCP Family Medicine; Visit Provider Physician Assistant
DX: M79.89 Other specified soft tissue disorders (principal); M79.604 Pain in right leg
CPT/HCPCS: 93971

== ENCOUNTER 2024-10-27 17:02 | Outpatient (CLI) | payer OTHER, SELFPAY ==
--- OUTSIDE RECORDS SUMMARY | 2024-10-27 17:06 | XMS_ITS | Continuity of Care Document ---
Author Organization [facility] Address [address] [place] [address] Phone Care Team Providers Care Water Well Driller Name Role Phone Tsai OD, Patrice Unavailable Unavailable Advance Directives Directive Yes / No Effective Date File Name No Information Encounters Encounter Description Practice Location Reason(s) For Visit Diagnoses Date Provider Providers Copied on Encounter [facility], [address], [place], [place], [id number], [place] tel:[phone] [facility] No Information Mar-0 3-200 5 Tsai OD Patrice. [address] , [address], [place], [address], . tel:[phone] Family History Family Member Type Diagnosis Age At Onset No Information Payers Payer name Insurance type Covered constitution party ID Authoriza tion(s) No Information Social History Type Description Quantity Date Captured Comments Sex Female Smoking Status No Information Chief Complaint And Reason For Visit No Information Reason For Referral Reason For Referral No Information History Of Present Illness Encounter Date Complaint History Of Prese nt Illness No Information Functional Status Date Functional Assessmen t No Information Instructions Date Instruction Additional Infor mation No Information Assessments Type Assessment Date No Information Patient Care Teams Name Effective Dates (start - stop) Status Members No Information
--- OUTSIDE RECORDS SUMMARY | 2024-10-27 17:06 | XMS_ITS | Referral Summary ---
Author Organization [facility] Address [address] [place] [address] Care Team Providers Care Core Maker Helper Name Role Phone Cydney Urban MD Primary Care Provider + Source Comments [facility],non-owned Affiliates and Associated Physician Practices is amultiple site organization consisting of ambulatory clinics and hospital sitesin [place], [place], [place] and [place]. This disclosure is being madepursuant to the Care Everywhere program and may not contain all information available regarding this patient. Last updated 18.[facility] Allergies Active Allergy Reactions Criticality Noted Date Comments Gentamicin Rash Medium 07/23/2016 gentamycin eye ddrops Medications * Be aware that medications may not be up to date on this document. Alwaysverify current medications with the patient. Medication Sig Dispensed Refills Start Date End Date Status Venlafaxine HCl (EFFEXOR XR PO) Take 225 mg by mouth once daily Active Fexofenadine HCl (ELIANE PO) Take by mouth as needed Active atorvastatin (LIPITOR) 40 MG tablet Take 1 (one) tablet by mouth at bedtime 30 tablet 3 04/28/2021 Active levothyroxine (SYNTHROID) 150 MCG tablet Take 1 (one) tablet by mouth once daily 04/29/2021 Active liothyronine (CYTOMEL) 5 MCG tablet Take 1 (one) tablet by mouth once daily 04/29/2021 Active Rivaroxaban (XARELTO STARTER PACK) 15 & 20 MG TBPK Take 15mg by mouth twice daily for 21 days then 20mg by mouth once daily there after 51 tablet 04/29/2021 Active furosemide (Lasix) 10 mg TABS Take 10 mg by mouth once daily Active pseudoephedrine (Sudafed) 30 MG tablet Take 1 (one) tablet by mouth every 4 hours as needed for Nasal Congestion Active albuterol HFA (Proventil; Ventolin; Proair) 108 (90 Base) MCG/ACT inhaler Inhale 2 (two) puffs by mouth every 6 hours as needed Active LORazepam (Ativan) 1 MG tablet Take 1 (one) tablet by mouth every 8 hours as needed for Anxiety Active aspirin EC (Ecotrin) 81 MG tablet Take 1 (one) tablet by mouth once daily 100 tablet 07/10/2022 Active furosemide (Lasix) 20 MG tablet Take 1 (one) tablet by mouth as needed 20 tablet 3 08/21/2022 Active carvedilol (Coreg) 12.5 MG tablet TAKE 1 TABLET TWICE A DAY WITH MORNING AND EVENING MEALS 180 tablet 3 11/15/2023 Active Active Problems Problem Noted Date Diagnosed Date Paroxysmal atrial fibrillation 01/25/2024 ASD (atrial septal defect) 03/12/2022 Dyspnea 03/12/2022 Right ventricular failure 03/12/2022 Obesity 12/12/2021 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 04/29/2021 Other specified hypothyroidism 04/28/2021 Intracranial atherosclerosis 04/28/2021 Cerebrovascular accident (CVA) 04/27/2021 TIA (transient ischemic attack) 04/27/2021 Hypertension 04/27/2021 Anxiety disorder 04/15/2019 Asthma 04/15/2019 Depressive disorder 04/15/2019 Resolved Problems Problem Noted Date Diagnosed Date Resolved Date PFO (patent foramen ovale) 04/29/2021 0 03/12/2022 Immunizations Name Administration Dates Next Due Covid SIRS-Lab primary monoval ent 12+ yr 0.3mL Purple cap 07/04/2021,11/23/2020,11/02/2020 Social History Tobacco Use Types Packs/Day Years Used Date Smoking Tobacco: Never Smokeless Tobacco: Never Alcohol Use Standard Drinks/Week Comments Yes 0 (1 standard drink = 0.6 oz pur e alcohol) socially AUDIT-C Answer Date Recorded Q1: How often do you have a drink containing alcohol? Never 07/10/2022 Q2: How many drinks containi ng alcohol do you have on a typical day when you are drinking? Patient does not drink Q3: How often do you have si x or more drinks on one occasion? Never 07/10/2022 PHQ-2 Answer Date Recorded PHQ2 TOTAL SCORE 0 04/27/2021 Sex and Gender Information Value Date Recorded Sex Assigned at Not on file Gender Identity Not on file Sexual Orientation Not on file Last Filed Vital Signs Vital Sign Reading Time Taken Comments Blood Pressure 119/78 05/14/2024 9:02 AM CDT Pulse 62 05/14/2024 8:08 AM CDT Temperature 36.7 C (98 F) 10/05/2022 11:11 AM ORACLE SOA ARCHITECT Respiratory Rate 16 07/10/2022 4:00 PM CDT Oxygen Saturation 98% 05/14/2024 8:08 AM CDT Inhaled Oxygen Concentration - - Weight 130.2 kg (287 lb) 05/14/2024 9:02 AM CDT Height 175.3 cm (5' 9 ) 05/14/2024 9:02 AM CDT Body Mass Index 42.38 05/14/2024 9:02 AM CDT Functional Status Functional Status Response Date of Assess ment Is person deaf or have serious hearing difficult y? No 07/10/2022 Is person blind or have serious difficulty seein g? No 07/10/2022 Does person have serious dif ficulty walking/climbing stairs? No 07/10/2022 Does person have difficulty dressing/bathing? No 07/10/2022 Does person have difficulty doing errands alone? No 07/10/2022 Cognitive Status Response Date of Assessm ent Does person have difficulty concentrating/remembering/making decisions? No 07/10/2022 Plan of Treatment Upcoming Encounters Date Type Department Care Team (Late st Contact Info) Description 05/13/2025 1:00 PM CDT Office Visit [facility] - Cardiology [address] [facility] [address] [place] [address] Alejandrina Parry MD [address] [place] [address] Medical Devices Implanted Type Area Aluminum Fabrication Supervisor Device Identifier Shelf Expiration Date Model / Serial / Lot Occl Sept 20mm - [id number] Implanted:Qty: 1 on 07/10/2022 by Alejandrina Parry MD at [facility] N/A: Heart [employer] 01/15/2024 9-[id number]-[id number] / [id number] / [id number] Procedures Procedure Name Priority Date/Time Associated Diagnosis Comments BASIC METABOLIC PANEL (CALCIUM TOTAL) Routine 07/08/2022 7:11 AM CDT ASD (atrial septal defect) (HCC) from Last 3 Months or Most Recently Relevant to Health Maintenance Results * BASIC METABOLIC PANEL (CALCIUM TOTAL) (07/08/2022 7:11 AM CDT) Glucose 94 65 - 99 mg/dL [facility] Comment: Fasting reference interval BUN 12 7 - 25 mg/dL [facility] Creatinine 0.74 0.50 - 1.03 mg/dL [facility] eGFR by Cystatin C 97 > OR = 60 mL/min/1. 73m2 [facility] Comment: The eGFR is based on the CKD-EPI 2020 equation. To calculate the new eGFR from a previous Creatinine or Cystatin C result, go to https://www.kidney.org/professionals/ kdoqi/gfr%5Fcalculator BUN/Creatinine Ratio NOT APPLICABLE (calc) [facility] Sodium 140 135 - 146 mmol/L [facility] Potassium 4.4 3.5 - 5.3 mmol/L [facility] Chloride 104 98 - 110 mmol/L [facility] CO2 29 20 - 32 mmol/L [facility] Calcium 9.3 8.6 - 10.4 mg/dL [facility] Comment: Test Performed at: [facility] [address] [place] [address] RAIN QUIGLEY DO,MPH Blood BLOOD SPECIMEN / Unknown 07/08/2022 7:11 AM CDT 07/08/2022 7:12 AM CDT Alejandrina Parry MD LAB - CHEMISTRY ORD ERABLES [facility] [address] [place] [address] from Last 3 Months or Most Recently Relevant to Health Maintenance Advance Directives * Full Code (Latest Code Status on File) Date Activated Date Inactivated Comments 07/10/2022 12:31 PM 07/10/2022 5:34 PM * Full Code Date Activated Date Inactivated Comments 04/27/2021 11:27 AM 04/28/2021 7:07 PM Care Teams Core Maker Helper Relationship Specialty Start Date End Date Cydney Urban MD [address] [place] [address] PCP - General Family Medicine 07/23/16
--- OUTSIDE RECORDS SUMMARY | 2024-10-27 17:06 | XMS_ITS | Patient Health Summary ---
Author Organization [facility] Address [address] [place] [address] Care Team Providers Care Chimney Builder Helper Name Role Phone Cydney Urban MD Primary Care Provider + Note from [facility],non-owned Affiliates and Associated Physician Practices is amultiple site organization consisting of ambulatory clinics and hospital sitesin [place], [place], [place] and [place]. This disclosure is being madepursuant to the Care Everywhere program and may not contain all information available regarding this patient. Last updated 18.[facility] Allergies * Gentamicin(Rash) -Medium Criticality Medications * Be aware that medications may not be up to date on this document. Alwaysverify current medications with the patient. * Venlafaxine HCl (EFFEXOR XR PO) Take 225 mg by mouth once daily * Fexofenadine HCl (ELIANE PO) Take by mouth as needed * atorvastatin (LIPITOR) 40 MG tablet(Started 04/28/2021) Take 1 (one) tablet by mouth at bedtime 3 refills by 04/28/2022 * levothyroxine (SYNTHROID) 150 MCG tablet(Started 04/29/2021) Take 1 (one) tablet by mouth once daily * liothyronine (CYTOMEL) 5 MCG tablet(Started 04/29/2021) Take 1 (one) tablet by mouth once daily * Rivaroxaban (XARELTO STARTER PACK) 15 & 20 MG TBPK(Started 04/29/2021) Take 15mg by mouth twice daily for 21 days then 20mg by mouth once daily there after * furosemide (Lasix) 10 mg TABS Take 10 mg by mouth once daily * pseudoephedrine (Sudafed) 30 MG tablet Take 1 (one) tablet by mouth every 4 hours as needed for Nasal Congestion * albuterol HFA (Proventil; Ventolin; Proair) 108 (90 Base) MCG/ACT inhaler Inhale 2 (two) puffs by mouth every 6 hours as needed * LORazepam (Ativan) 1 MG tablet Take 1 (one) tablet by mouth every 8 hours as needed for Anxiety * aspirin EC (Ecotrin) 81 MG tablet(Started 07/10/2022) Take 1 (one) tablet by mouth once daily * furosemide (Lasix) 20 MG tablet(Started 08/21/2022) Take 1 (one) tablet by mouth as needed 3 refills by 08/21/2023 * carvedilol (Coreg) 12.5 MG tablet(Started 11/15/2023) TAKE 1 TABLET TWICE A DAY WITH MORNING AND EVENING MEALS 3 refills by 11/14/2024 Active Problems Problem Noted Date Diagnosed Date [...] (patent foramen ovale) 04/29/2021 0 03/12/2022 Immunizations * Covid Pfizer primary monovalent 12+ yr 0.3mL Purple cap(Given 07/04/2021, 11/23/2020, 11/02/2020) Social History Tobacco Use Types Packs/Day Years [...] 36.7 C (98 F) 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 N/A: [email or web address] 01/15/2024 9-ASD-013 / [id number] / [id number] Procedures * ECHO COMPLETE(Performed 05/14/2024) Performed for ASD (atrial septal defect) ([facility]) * EKG 12-LEAD(Performed 01/25/2024) Performed for Paroxysmal atrial fibrillation ([facility]) * CARDIAC HOLTER MONITOR ORDER(Performed 01/25/2024) * ECHO COMPLETE(Performed 11/03/2022) Performed for ASD (atrial septal defect) ([facility]) * IA ECG/REVIEW INTERPRET ONLY(Performed 10/22/2022) Performed for Palpitations * CARDIAC PROCEDURE ORDER(Performed 08/21/2022) * CARDIAC PROCEDURE ORDER(Performed 08/21/2022) * CARDIAC PROCEDURE ORDER(Performed 08/21/2022) * CARDIAC PROCEDURE ORDER(Performed 08/18/2022) * CARDIAC PROCEDURE ORDER(Performed 08/18/2022) * CARDIAC PROCEDURE ORDER(Performed 08/18/2022) * CARDIAC PROCEDURE ORDER(Performed 08/16/2022) * CARDIAC PROCEDURE ORDER(Performed 08/14/2022) * CARDIAC PROCEDURE ORDER(Performed 08/14/2022) * CARDIAC PROCEDURE ORDER(Performed 08/14/2022) * CARDIAC PROCEDURE ORDER(Performed 08/14/2022) * CARDIAC PROCEDURE ORDER(Performed 08/11/2022) * CARDIAC PROCEDURE ORDER(Performed 08/11/2022) * CARDIAC PROCEDURE ORDER(Performed 08/09/2022) * CARDIAC EKG ORDER(Performed 07/12/2022) * ECHO LIMITED OR FOLLOWUP(Performed 07/10/2022) Performed for ASD (atrial septal defect) ([facility]) * CCL INTRACARDIAC ECHOCARDIOGRAM(Performed 07/10/2022) Performed for HTN (hypertension) with goal to be determined * CCL ATRIAL SEPTAL DEFECT CLOSURE(Performed 07/10/2022) Performed for HTN (hypertension) with goal to be determined * ACT LR - POCT ([facility])(Performed 07/10/2022) * ACT LR - POCT ([facility])(Performed 07/10/2022) * TYPE + SCREEN PANEL(Performed 07/10/2022) Performed for TIA (transient ischemic attack) * CBC W AUTO DIFFERENTIAL(Performed 07/08/2022) Performed for ASD (atrial septal defect) ([facility]) * BASIC METABOLIC PANEL (CALCIUM TOTAL)(Performed 07/08/2022) Performed for ASD (atrial septal defect) ([facility]) * CARDIAC REHAB(Performed 03/17/2022) * CARDIAC REHAB(Performed 03/08/2022) * PROC EKG IN CLINIC(Performed 12/12/2021) Performed for ASD (atrial septal defect) ([facility]) * ECHO ASHER TRANSESOPHAGEAL(Performed 11/30/2021) Performed for TIA (transient ischemic attack) * VASCULAR LAB ORDER(Performed 04/30/2021) * CARDIAC EKG ORDER(Performed 04/28/2021) * GLUCOSE - POINT OF CARE(Performed 04/28/2021) * HOMOCYSTEINE BLOOD QUANTITATIVE(Performed 04/28/2021) Performed for Weakness * FACTOR VIII ASSAY(Performed 04/28/2021) Performed for Weakness * CARDIOLIPIN ANTIBODY IGG(Performed 04/28/2021) Performed for Weakness * CARDIOLIPIN ANTIBODY IGA(Performed 04/28/2021) Performed for Weakness * CARDIOLIPIN ANTIBODY IGM(Performed 04/28/2021) Performed for Weakness * PROTHROMBIN [id number] PANEL(Performed 04/28/2021) Performed for Weakness * PROTEIN C ACTIVITY(Performed 04/28/2021) Performed for Weakness * PROTEIN S ACTIVITY(Performed 04/28/2021) Performed for Weakness * FACTOR V LEIDEN MUTATION PANEL(Performed 04/28/2021) Performed for Weakness * DNA ANTIBODY DS CRITHIDIA TITER(Performed 04/28/2021) Performed for Weakness * SILVA BLOOD SCREEN W/REFLEX TITER(Performed 04/28/2021) Performed for Weakness * ANTITHROMBIN III ACTIVITY(Performed 04/28/2021) Performed for Weakness * BETA-2 GLYCOPROTEIN 1 ANTIBODY IGG/IGM PANEL(Performed 04/28/2021) Performed for Weakness * VAS BILATERAL VENOUS DUPLEX LE(Performed 04/28/2021) Performed for TIA (transient ischemic attack) * GLUCOSE - POINT OF CARE(Performed 04/28/2021) * PHOSPHORUS BLOOD(Performed 04/28/2021) Performed for TIA (transient ischemic attack) * MAGNESIUM BLOOD(Performed 04/28/2021) Performed for TIA (transient ischemic attack) * LIPID PROFILE(Performed 04/28/2021) * CBC W/O DIFFERENTIAL(Performed 04/28/2021) * BASIC METABOLIC PANEL (CALCIUM TOTAL)(Performed 04/28/2021) * MRI BRAIN WO CONTRAST(Performed 04/27/2021) Performed for Weakness * GLUCOSE - POINT OF CARE(Performed 04/27/2021) * TROPONIN I(Performed 04/27/2021) * GLUCOSE - POINT OF CARE(Performed 04/27/2021) * ECHO COMPLETE W BUBBLE STUDY(Performed 04/27/2021) Performed for Weakness * BLOOD TYPE VERIFICATION(Performed 04/27/2021) * TROPONIN I(Performed 04/27/2021) * TROPONIN I(Performed 04/27/2021) * SARS-COV-2 (COVID-19)+INFLU A+B PCR RAPID(Performed 04/27/2021) Performed for Weakness * EKG 12-LEAD(Performed 04/27/2021) Performed for Weakness * PT EVAL AND TREAT(Performed 04/27/2021) * OT EVAL AND TREAT(Performed 04/27/2021) * TYPE + SCREEN PANEL(Performed 04/27/2021) * TROPONIN I(Performed 04/27/2021) * PT-INR [facility](Performed 04/27/2021) * COMPREHENSIVE METABOLIC PANEL(Performed 04/27/2021) * CBC W AUTO DIFFERENTIAL(Performed 04/27/2021) * CT ANGIO BRAIN NECK STROKE(Performed 04/27/2021) Performed for Weakness * CT BRAIN STROKE(Performed 04/27/2021) Performed for Weakness * STREP A SCREEN - POINT OF CARE (AMB) STL(Performed 01/12/2017) Performed for Acute pharyngitis, unspecified etiology * STREP A SCREEN - POINT OF CARE (AMB) STL(Performed 07/23/2016) Performed for Acute pharyngitis, unspecified etiology Results * ECHO COMPLETE (05/14/2024 8:57 AM CDT) IVSd 2D 1.047 cm SSM CV FUJ I PACS LVIDd 5.513 cm SSM CV FUJ I PACS LVIDs 3.393 cm [facility]SM CV FUJ I PACS LVOT diam 2.339 cm SSM CV FUJ I PACS LVPWd 0.972 cm SSM CV FUJ I PACS LV biplane EF 61.7 % SSM CV FUJI PACS LV A2C EF 63.649 % SSM CV FUJ I PACS LV A4C EF 61.839 % SSM CV FUJ I PACS LV EDV A2C 92.266 ml SSM CV FU JI PACS LV EDV A4C 96.532 ml SSM CV FU JI PACS LV ESV A2C 33.54 ml SSM CV FU JI PACS LV ESV A4C 36.837 ml SSM CV FU JI PACS LVOT pk lb 95.38 cm/s SSM CV F UJI PACS LVOT VTI 21.435 cm SSM CV FUJ I PACS RVIDd 3.805 cm SSM CV FUJ I PACS RVOT pk lb 67.188 cm/s SSM CV F UJI PACS RVOT VTI 15.435 cm SSM CV FUJ I PACS LA vol BP 69.549 ml SSM CV FUJ I PACS RA area 18.111 cm SSM CV FUJI PACS AV mn grad 3.213 mmHg SSM CV FU JI PACS AV pk lb 121.175 cm/s SSM CV FUJ I PACS AV VTI 25.776 cm SSM CV FUJ I PACS MV A pk lb 84.564 cm/s SSM CV F UJI PACS MV E pk lb 79.469 cm/s SSM CV F UJI PACS MV E' lateral lb 9.495 cm/s SSM CV FUJI PACS MV mn grad 1.06 mmHg SSM CV FU JI PACS MV VTI 24.9 cm SSM CV FUJ I PACS PV pk lb 82.995 cm/s SSM CV FUJ I PACS TAPSE 1.991 cm SSM CV FUJ I PACS TR pk lb 222.632 cm/s SSM CV FUJ I PACS Ascending aorta 2.995 cm SSM CV FUJI PACS IVC Diam Expiration 1.552 cm SSM CV FUJI PACS Sinus of Valsalva 3.079 cm SSM CV FUJI PACS LA vol index 0.027 l/m SSM CV FUJI PACS Myocardial strain charge 2 unitless SSM CV FUJI PACS Anatomical Region Laterality Modality Ultrasound 05/14/2024 8:26 AM CDT Narrative 05/14/2024 9:47 AM CDT Summary * The left ventricle is normal in size, with normal systolic function and an EF of 62 %. Left ventricular wall motion is normal. * The left ventricular diastolic function is normal. * Right ventricle is normal in size with normal systolic function. * The pulmonary artery systolic pressure is normal, 23 mmHg. * Atrial septal defect occluder visualized by 2D and color Doppler imaging. * No bubble study was performed. Patient Info Name: Valeri Flores Age: 54 years : 1970 Gender: Female Ht: 69 in Wt: 287 lb BSA: 2.58 m2 HR: 58 bpm BP: 119 / 78 mmHg Exam Date: 05/14/2024 8:26 AM Patient Status: O Study [facility] Type: ECHO COMPLETE Indications Q21.10 - ASD (atrial septal defect) ([facility]) Procedure(s) * A complete 2D, color Doppler, spectral Doppler, and M-Mode transthoracic echocardiogram was performed. Staff Referring Physician: Alejandrina Parry Ordering Provider: Alejandrina Parry Mill Dresser: Kareem Marshall Left Ventricle The left ventricle is normal in size. Left ventricular systolic function is normal with an ejection fraction by Biplane Method of Discs of 62 %. The left ventricular mass is normal. Left ventricular segmental wall motion is normal. The left ventricular diastolic function is normal. Right Ventricle The right ventricle is normal in size. Right ventricular systolic function is normal. Left Atrium The left atrium is normal in size with a left atrial volume index of 27 ml/m2 by BP MOD. Right Atrium The right atrium is normal in size. Atrial Septum Atrial septal defect occluder visualized by 2D and color Doppler imaging. Aortic Valve The aortic valve is trileaflet. There is no aortic valve stenosis. There is no aortic valve regurgitation. Pulmonic Valve The pulmonic valve is normal. There is no pulmonic valve stenosis. There is no pulmonic regurgitation. Mitral Valve The mitral valve is normal. There is no mitral valve stenosis. There is mild mitral valve regurgitation. Tricuspid Valve The tricuspid valve is normal. There is mild tricuspid valve regurgitation. The pulmonary artery systolic pressure is normal, 23 mmHg. Inferior Vena Cava The inferior vena cava is normal in size (< 2.1 cm). There is > 50% collapse of the IVC upon inspiration with an estimated right atrial pressure of 3 mmHg. Pericardium/Pleural There is no pericardial effusion. Aorta The aortic root at the sinus of Valsalva is normal in size. The ascending aorta is normal in size. Measurements Left Ventricular Outflow Tract Name Value Normal LVOT 2D LVOT Diameter 2.3 cm LVOT Area 4.3 cm2 LVOT Doppler LVOT Peak Velocity 1.0 m/s LVOT Peak Gradient 4 mmHg LVOT Mean Velocity 59.60 cm/s LVOT Mean Gradient 2 mmHg LVOT VTI 21.4 cm LVOT VTI/AV VTI Ratio 0.8 LVOT Stroke Volume 92 ml LVOT Stroke Volume Index 36 ml/m2 35-58 LVOT CO 5.3 l/min LVOT CI 2.1 l/min/m2 Pulmonic Valve Name Value Normal RVOT Doppler RVOT Peak Velocity 0.7 m/s RVOT Peak Gradient 2 mmHg RVOT Mean Gradient 1 mmHg PV Doppler PV Peak Velocity 0.8 m/s PV Peak Gradient 3 mmHg PV Mean Gradient 1 mmHg PV Accel Time 179.83 ms Mitral Valve Name Value Normal MV Doppler MV Peak Gradient 3 mmHg MV Mean Gradient 1 mmHg MV DI (VTI) 1.16 MV PHT 74 ms MV Area (PHT) 2.98 cm2 4.00-5.00 MV Area (Cont Eq VTI) 3.70 cm2 MV Diastolic Function MV E Peak Velocity 0.8 m/sec MV A Peak Velocity 0.8 m/sec MV E/A 0.9 MV Decel Time (PW) 251 ms MV A Wave Duration 146 ms MV Annular TDI MV Septal e' Velocity 9 cm/s >=8 MV E/e' (Septal) 8 <=8 MV Lateral e' Velocity 9 cm/s >=10 MV E/e' (Lateral) 8 <=8 MV e' Average 9 cm/s MV E/e' (Average) 8 Tricuspid Valve Name Value Normal TV Regurgitation Doppler TR Peak Velocity 2.2 m/s TR Peak Gradient 20 mmHg Estimated PAP/RSVP RA Pressure 3 mmHg <=5 PA Systolic Pressure 23 mmHg <35 RV Systolic Pressure 23 mmHg <36 TV Annular TDI TV Lateral Lamar s' Velocity 16 cm/s 10-19 Pulmonary Vessels Name Value Normal Pulmonary Veins Pulm Vein Peak Systolic Velocity 45.8 cm/s Pulm Vein Peak Diastolic Velocity 31.8 cm/s Pulm Vein S/D Velocity Ratio 1 Pulm Vein Ar Velocity 28.0 cm/s Pulm Vein Ar Dur - MV A Dur -37 ms Aorta Name Value Normal Ascending Aorta Sinus of Valsalva Diameter 3.1 cm 2.4-3.6 Sinus of Valsalva Index 1.2 cm/m2 1.4-2.2 Asc Ao Diameter 3.0 cm 1.9-3.5 Asc Ao Diameter Index 1.2 cm/m2 1.0-2.2 Venous Name Value Normal IVC/SVC IVC Diameter 1.6 cm <=2.1 Aortic Valve Name Value Normal AV Doppler AV Peak Velocity 1.21 m/s AV Peak Gradient 6 mmHg AV Mean Gradient 3 mmHg AV VTI 26 cm AV Area (Cont Eq VTI) 3.57 cm2 >=2.00 AV Area (Cont Eq Lb) 3.38 cm2 AV DI (VTI) 0.83 AV DI (Lb) 0.79 AV Regurgitation 2D LVOT Area 4.29 cm2 Ventricles Name Value Normal LV Dimensions 2D/MM IVS Diastolic Thickness (2D) 1.0 cm 0.6-0.9 LVID Diastole (2D) 5.5 cm 3.8-5.2 LVPW Diastolic Thickness (2D) 1.0 cm 0.6-0.9 LVID Systole (2D) 3.4 cm 2.2-3.5 LV Mass (2D Cubed) 217 g 67-162 LV Mass Index (2D Cubed) 84 g/m2 43-95 Relative Wall Thickness (2D) 0.35 <=0.42 LV Fractional Shortening/Ejection Fraction 2D/MM LV Fractional Shortening (2D) 38 % 27-45 LV EF (2D Teicholz) 68 % 54-74 LV Diastolic Volume (4C MOD) 97 ml LV EF (4C MOD) 62 % LV Diastolic Volume (2C MOD) 92 ml LV EF (2C MOD) 64 % LV Diastolic Volume (BP MOD) 94 ml 46-106 LV Diastolic Volume Index (BP MOD) 37 ml/m2 29-61 LV Systolic Volume (BP MOD) 36 ml 14-42 LV Systolic Volume Index (BP MOD) 14 ml/m2 8-24 LV EF (BP MOD) 62 % 54-74 LV Diastolic Length (4C) 7.4 cm LV Systolic Length (4C) 5.9 cm LV Stroke Volume (4C MOD) 60 ml RV Dimensions 2D/MM RVID Diastole (2D) 3.8 cm 2.5-3.5 TAPSE 2.0 cm >=1.7 Atria Name Value Normal LA Dimensions LA Volume (BP MOD) 70 ml LA Volume Index (BP MOD) 27 ml/m2 16-34 RA Dimensions RA Area (4C) 18 cm2 <=18 RA Area (4C) Index 7 cm2/m2 RA ESV (4C MOD) 46 ml 15-27 RA ESV Index (4C MOD) 18 ml/m2 16-34 Report Signatures Finalized by Valeri Rosales MD on 05/14/2024 09:47 AM Procedure Note Valeri Rosales MD - 05/14/2024 Summary * The left ventricle is normal in size, with normal systolic functionand an EF of 62 %. Left ventricular wall motion is normal. * The left ventricular diastolic function is normal. * Right ventricle is normal in size with normal systolic function. * The pulmonary artery systolic pressure is normal, 23 mmHg. * Atrial septal defect occluder visualized by 2D and color Dopplerimaging. * No bubble study was performed. Patient Info Name: Valeri Flores Age: 54 years : 1970 Gender: Female Ht: 69 in Wt: 287 lb BSA: 2.58 m2 HR: 58 bpm BP: 119 / 78 mmHg Exam Date: 05/14/2024 8:26 AM Patient Status: O Study Site: [facility] Exam Type: ECHO COMPLETE Indications Q21.10 - ASD (atrial septal defect) ([facility]) Procedure(s) * A complete 2D, color Doppler, spectral Doppler, and M-Modetransthoracic echocardiogram was performed. Staff Referring Physician: Alejandrina Parry Ordering Provider: Alejandrina Parry Mill Dresser: Kareem Marshall Left Ventricle The left ventricle is normal in size. Left ventricular systolic functionis normal with an ejection fraction by Biplane Method of Discs of 62 %. Theleft ventricular mass is normal. Left ventricular segmental wall motion isnormal. The left ventricular diastolic function is normal. Right Ventricle The right ventricle is normal in size. Right ventricular systolicfunction is normal. Left Atrium The left atrium is normal in size with a left atrial volume index of27 ml/m2 by BP MOD. Right Atrium The right atrium is normal in size. Atrial Septum Atrial septal defect occluder visualized by 2D and color Dopplerimaging. Aortic Valve The aortic valve is trileaflet. There is no aortic valve stenosis. Thereis no aortic valve regurgitation. Pulmonic Valve The pulmonic valve is normal. There is no pulmonic valve stenosis. Thereis no pulmonic regurgitation. Mitral Valve The mitral valve is normal. There is no mitral valve stenosis. There ismild mitral valve regurgitation. Tricuspid Valve The tricuspid valve is normal. There is mild tricuspid valveregurgitation. The pulmonary artery systolic pressure is normal, 23 mmHg. Inferior Vena Cava The inferior vena cava is normal in size (< 2.1 cm). There is > 50%collapse of the IVC upon inspiration with an estimated right atrial pressure of 3mmHg. Pericardium/Pleural There is no pericardial effusion. Aorta The aortic root at the sinus of Valsalva is normal in size. Theascending aorta is normal in size. Measurements Left Ventricular Outflow Tract Name Value Normal LVOT 2D LVOT Diameter 2.3 cm LVOT Area 4.3 cm2 LVOT Doppler LVOT Peak Velocity 1.0 m/s LVOT Peak Gradient 4 mmHg LVOT Mean Velocity 59.60 cm/s LVOT Mean Gradient 2 mmHg LVOT VTI 21.4 cm LVOT VTI/AV VTI Ratio 0.8 LVOT Stroke Volume 92 ml LVOT Stroke Volume Index 36 ml/m2 35-58 LVOT CO 5.3 l/min LVOT CI 2.1 l/min/m2 Pulmonic Valve Name Value Normal RVOT Doppler RVOT Peak Velocity 0.7 m/s RVOT Peak Gradient 2 mmHg RVOT Mean Gradient 1 mmHg PV Doppler PV Peak Velocity 0.8 m/s PV Peak Gradient 3 mmHg PV Mean Gradient 1 mmHg PV Accel Time 179.83 ms Mitral Valve Name Value Normal MV Doppler MV Peak Gradient 3 mmHg MV Mean Gradient 1 mmHg MV DI (VTI) 1.16 MV PHT 74 ms MV Area (PHT) 2.98 cm2 4.00-5.00 MV Area (Cont Eq VTI) 3.70 cm2 MV Diastolic Function MV E Peak Velocity 0.8 m/sec MV A Peak Velocity 0.8 m/sec MV E/A 0.9 MV Decel Time (PW) 251 ms MV A Wave Duration 146 ms MV Annular TDI MV Septal e' Velocity 9 cm/s >=8 MV E/e' (Septal) 8 <=8 MV Lateral e' Velocity 9 cm/s >=10 MV E/e' (Lateral) 8 <=8 MV e' Average 9 cm/s MV E/e' (Average) 8 Tricuspid Valve Name Value Normal TV Regurgitation Doppler TR Peak Velocity 2.2 m/s TR Peak Gradient 20 mmHg Estimated PAP/RSVP RA Pressure 3 mmHg <=5 PA Systolic Pressure 23 mmHg <35 RV Systolic Pressure 23 mmHg <36 TV Annular TDI TV Lateral Lamar s' Velocity 16 cm/s 10-19 Pulmonary Vessels Name Value Normal Pulmonary Veins Pulm Vein Peak Systolic Velocity 45.8 cm/s Pulm Vein Peak Diastolic Velocity 31.8 cm/s Pulm Vein S/D Velocity Ratio 1 Pulm Vein Ar Velocity 28.0 cm/s Pulm Vein Ar Dur - MV A Dur -37 ms Aorta Name Value Normal Ascending Aorta Sinus of Valsalva Diameter 3.1 cm 2.4-3.6 Sinus of Valsalva Index 1.2 cm/m2 1.4-2.2 Asc Ao Diameter 3.0 cm 1.9-3.5 Asc Ao Diameter Index 1.2 cm/m2 1.0-2.2 Venous Name Value Normal IVC/SVC IVC Diameter 1.6 cm <=2.1 Aortic Valve Name Value Normal AV Doppler AV Peak Velocity 1.21 m/s AV Peak Gradient 6 mmHg AV Mean Gradient 3 mmHg AV VTI 26 cm AV Area (Cont Eq VTI) 3.57 cm2 >=2.00 AV Area (Cont Eq Lb) 3.38 cm2 AV DI (VTI) 0.83 AV DI (Lb) 0.79 AV Regurgitation 2D LVOT Area 4.29 cm2 Ventricles Name Value Normal LV Dimensions 2D/MM IVS Diastolic Thickness (2D) 1.0 cm 0.6-0.9 LVID Diastole (2D) 5.5 cm 3.8-5.2 LVPW Diastolic Thickness (2D) 1.0 cm 0.6-0.9 LVID Systole (2D) 3.4 cm 2.2-3.5 LV Mass (2D Cubed) 217 g 67-162 LV Mass Index (2D Cubed) 84 g/m2 43-95 Relative Wall Thickness (2D) 0.35 <=0.42 LV Fractional Shortening/Ejection Fraction 2D/MM LV Fractional Shortening (2D) 38 % 27-45 LV EF (2D Teicholz) 68 % 54-74 LV Diastolic Volume (4C MOD) 97 ml LV EF (4C MOD) 62 % LV Diastolic Volume (2C MOD) 92 ml LV EF (2C MOD) 64 % LV Diastolic Volume (BP MOD) 94 ml 46-106 LV Diastolic Volume Index (BP MOD) 37 ml/m2 29-61 LV Systolic Volume (BP MOD) 36 ml 14-42 LV Systolic Volume Index (BP MOD) 14 ml/m2 8-24 LV EF (BP MOD) 62 % 54-74 LV Diastolic Length (4C) 7.4 cm LV Systolic Length (4C) 5.9 cm LV Stroke Volume (4C MOD) 60 ml RV Dimensions 2D/MM RVID Diastole (2D) 3.8 cm 2.5-3.5 TAPSE 2.0 cm >=1.7 Atria Name Value Normal LA Dimensions LA Volume (BP MOD) 70 ml LA Volume Index (BP MOD) 27 ml/m2 16-34 RA Dimensions RA Area (4C) 18 cm2 <=18 RA Area (4C) Index 7 cm2/m2 RA ESV (4C MOD) 46 ml 15-27 RA ESV Index (4C MOD) 18 ml/m2 16-34 Report Signatures Finalized by Valeri Rosales MD on 05/14/2024 09:47 AM Alejandrina Parry MD ECHO CUPID * EKG 12-LEAD (01/25/2024 9:16 AM CDT) Only the most recent of2 resultswithin the time period is included. Ventricular Rate 61 BPM [facility] Atrial Rate 61 BPM [facility] P-R Interval 150 ms [facility] QRS Duration ms 92 ms [facility] Q-T Interval ms 420 ms [facility] QTC Calculation (Bezet) 422 ms [facility] Calculated P [place] 31 degrees [facility] Calculated R [place] -6 degrees [facility] Calculated T [place] 73 degrees [facility] Interpretation EKG NORMAL SINUS RHYTHM SEPTAL INFARCT (CITED ON OR BEFORE 27-APR-2021) ABNORMAL ECG WHEN COMPARED WITH ECG OF 27-APR-2021 11:29, QUESTIONABLE CHANGE IN INITIAL FORCES OF SEPTAL LEADS T WAVE INVERSION NOW EVIDENT IN ANTERIOR LEADS Confirmed by EVETTE CEDILLO, BLANCO ([id number]) on 01/31/2024 1:22:27 PM [facility] 01/25/2024 9:16 AM CDT 01/31/2024 1:22 PM CDT Alejandrina Parry MD ECG ORDERABLES [facility] * CARDIAC HOLTER MONITOR ORDER (01/25/2024) Narrative 01/25/2024 Ordered by an unspecified provider. Scanned Document CARDIAC SERVICES ORD ERABLES * ECHO COMPLETE (11/03/2022 9:12 AM MEDICAL EQUIPMENT TECHNICIAN) Anatomical Region Laterality Modality Chest Echo 11/03/2022 8:01 AM MEDICAL EQUIPMENT TECHNICIAN Narrative Procedure Note Romina Hernandez MD - 11/03/2022 Kimberly CH[facility]BERS ECHOCARDIOGRAPHY RAD IANT * IA ECG/REVIEW INTERPRET ONLY (10/22/2022 7:07 PM MEDICAL EQUIPMENT TECHNICIAN) Narrative Ahbi Leon MD - 10/22/2022 7:07 PM MEDICAL EQUIPMENT TECHNICIAN Abhi Leon MD 10/23/2022 1:20 PM Read Date: 10/22/2022 Patient name: Valeri Flores Patient : 1970 Patient Age: [age] year old EVENT MONITOR REPORT: Indication for placement: Palpitations Requesting MD: Kimberly Lopez Duration of monitorin08/09/2022 - 09/07/2022 Wear time: 28 days 12 hours 37 mins Available tracings are adequate for interpretation for provided indication. 1. The mean average HR overall was: 74 bpm 2. The fastest HR noted was: 186 bpm (atrial fibrillation with rapid ventricular response) and occurred on 08/18/2023 at 7:11AM. 3. The slowest HR noted was: 44 bpm (sinus bradycardia) and occurred on 08/19/2023 at 11:49PM. 4. 8640 ventricular ectopic complexes occurred (<1.0% of 2.9 million complexes). 5. Atrial fibrillation was not detected. Atrial fibrillation burden was 2 %. 6. No Pause(s) noted of 3 seconds or longer. Patient transmitted 4 manually-triggered recordings and reported skipped beats as symptoms. During these manually-triggered recordings sinus rhythm with no conduction or rhythm abnormalities were noted. There are 11 episodes of atrial fibrillation noted during the auto-triggered tracings with no associated symptoms reported. Final Interpretation: Atrial fibrillation burden is 2%, all occurring during the first 13 days of monitoring. Jan Genao MD ECG ORDERABL ES * CARDIAC PROCEDURE ORDER (08/21/2022) Only the most recent of14 resultswithin the time period is included. 08/21/2022 Narrative 08/21/2022 Ordered by an unspecified provider. Scanned Document CARDIAC SERVICES ORD ERABLES * CARDIAC EKG ORDER (07/12/2022 8:06 AM CDT) Only the most recent of2 resultswithin the time period is included. Narrative 07/12/2022 8:06 AM CDT Ordered by an unspecified provider. Scanned Document CARDIAC SERVICES ORD ERABLES * ECHO LIMITED OR FOLLOWUP (07/10/2022 3:35 PM CDT) Anatomical Region Laterality Modality Chest Echo 07/10/2022 3:38 PM CDT Narrative Procedure Note Valeri Rosales MD - 07/10/2022 Alejandrina Parry MD ECHOCARDIOGRAPHY RA DIANT * CCL ATRIAL SEPTAL DEFECT CLOSURE, CCL INTRACARDIAC ECHOCARDIOGRAM (07/10/2022 9:47 AM CDT) Anatomical Region Laterality Modality X-Ray Angiograph y Narrative 07/11/2022 3:11 PM CDT Successful ICE guided ASD closure using #13 mm ASD occluder device Procedure Details Estimated Blood Loss: 10 mL Access The right femoral vein was accessed under ultrasound guidance, under fluoroscopic guidance, using the modified Seldinger technique and using a micropuncture kit. A 8 Fr sheath was inserted. A second site was then accessed via the right femoral vein. A 12 Fr sheath was inserted. Device Delivery 1 After obtaining access, a guidewire was inserted. A catheter was inserted over the guidewire and positioned inside the right atrium. A stiff guidewire was inserted and the MP catheter and sheath were removed. Then a sizing balloon was inserted and inflated across the septum. ICE imaging was used to evaluate and verify sizing. The balloon was then removed. A 13 mm septal occluder was selected. 13 mm ASD occluder Device Delivery 2 Vascular Access Management The remaining catheters and sheaths were removed. Hemostasis was achieved. Closure was achieved using a figure of eight suture after removal of all catheters, wires, and sheaths. ASD Visualization The ICE catheter was positioned inside the RA. ASHER images verified the presence of an ASD. Patient Prep Informed consent was obtained after a detailed discussion with the patient about the procedure's risks, benefits, and alternatives. The patient was brought to the lab scientist in a fasting state. A timeout was performed. The patient was prepped and draped in the usual sterile fashion. Moderate sedation was administered. Alejandrina Parry MD CV CARDIAC CATH CUP ID PROCS * ACT LR - POCT ([facility]) (07/10/2022 8:55 AM CDT) Only the most recent of2 resultswithin the time period is included. ACT LR 283 See result comments sec 07/12/2022 7:28 AM CDT [facility] Blood BLOOD SPECIMEN / Unknown 07/10/2022 8:55 AM CDT 07/12/2022 7:28 AM CDT Narrative [facility] - 07/12/2022 7:28 AM CDT ACT-LR Therapeutics ranges are: Cardiac laborer [place] = 200-300 seconds Sheath pull = ACT less than 170 seconds EPS lab = 200-240 seconds Sheath pull = ACT less than 140 seconds Radiology : CT/Angio lab = 200-300 seconds Sheath pull = ACT less than 200 seconds Expected range of normal volunteers: ACT-LR = 113-149 seconds Expected range of a Non-heparin patients: ACT-LR = 89-169 seconds From established ranges from the company manual Alejandrina Parry MD LAB - COAGULATION O RDERABLES [facility] [address] [place] [id number], [facility] [phone] * TYPE + SCREEN PANEL (07/10/2022 7:29 AM CDT) Only the most recent of2 resultswithin the time period is included. [facility] Antibody Screen NEG 8:24 AM CDT [facility] ABO Rh O POS 07/10/2022 8:24 AM CDT [facility] Blood Bank BLOOD SPECIMEN / Unknown Venipuncture / Unknown 07/10/2022 7:29 AM CDT 07/10/2022 7:34 AM CDT Alejandrina Parry MD LAB - BLOOD BANK OR DERABLES [facility] [address] [place] [address], [facility] [phone] * CBC WITH DIFFERENTIAL (07/08/2022 7:11 AM CDT) Only the most recent of2 resultswithin the time period is included. [facility] White Blood Cell Count 5.0 3.8 - 10.8 Thousand/u L [facility] RBC 4.27 3.80 - 5.10 Million/uL [facility] Hemoglobin 13.0 11.7 - 15.5 g/dL [facility] Hematocrit 39.4 35.0 - 45.0 % [facility] MCV 92.3 80.0 - 100.0 fL [facility] MCH 30.4 27.0 - 33.0 pg [facility] MCHC 33.0 32.0 - 36.0 g/dL [facility] RDW 12.4 11.0 - 15.0 % [facility] Platelet Count 353 140 - 400 Thousand/u L [facility] MPV 10.4 7.5 - 12.5 fL [facility] Neutrophil Absolute 2665 1500 - 7800 cells/uL [facility] Lymphocytes Absolute 1535 850 - 3900 cells/uL [facility] Absolute Monocytes 400 200 - 950 cells/uL [facility] Eosinophils Absolute 340 15 - 500 cells/uL [facility] Basophils Absolute 60 0 - 200 cells/uL [facility] Granulocytes % 53.3 % [facility] Lymphocytes % 30.7 % [facility] Monocytes % 8.0 % [facility] Eosinophils % 6.8 % [facility] Basophils % 1.2 % [facility] Comment: REPORT COMMENT: FASTING:YES Test Performed at: [facility] [address] [place] [address] RAIN QUIGLEY DO,MPH Blood BLOOD SPECIMEN / Unknown 07/08/2022 7:11 AM CDT 07/08/2022 7:12 AM CDT Alejandrina Parry MD LAB - HEMATOLOGY OR DERABLES Performing Organization Address [facility] Co de Phone Number [facility] [address] [place] [address] * BASIC METABOLIC PANEL (CALCIUM TOTAL) (07/08/2022 7:11 AM CDT) Only the most recent of2 resultswithin the time period is included. Glucose 94 65 - 99 mg/dL [facility] [...] 10.4 mg/dL [facility] Comment: Test Performed at: [facility] [address] [place] [address] RAIN QUIGLEY DO,MPH Blood BLOOD SPECIMEN / Unknown 07/08/2022 7:11 AM CDT 07/08/2022 7:12 AM CDT Alejandrina Parry MD LAB - CHEMISTRY ORD ERABLES Performing Organization Address [facility] Co de Phone Number [facility] [address] [place] [address] * CARDIAC REHAB (03/17/2022) Only the most recent of2 resultswithin the time period is included. Narrative 03/17/2022 Ordered by an unspecified provider. Scanned Document SCANNING ONLY * EKG - Clinic Performed (12/12/2021) Alejandrina Parry MD ECG ORDERABLES * ECHO ASHER TRANSESOPHAGEAL (11/30/2021 9:18 AM CDT) Anatomical Region Laterality Modality Chest Echo 11/30/2021 8:36 AM CDT Narrative Procedure Note Valeri Rosales MD - 11/30/2021 Jan Cannon DIVERSIONAL THERAPIST-SENIOR PRODUCT INTEGRITY ENGINEER ECHOCARDIOGRAPHY R ADIANT * VASCULAR LAB ORDER (04/30/2021 6:48 PM CDT) Anatomical Region Laterality Modality Other Narrative 04/30/2021 6:48 PM CDT Ordered by an unspecified provider. Scanned Document VASCULAR LAB ORDERAB LES * GLUCOSE - POINT OF CARE (04/28/2021 12:11 PM CDT) Only the most recent of4 resultswithin the time period is included. Pathologist [facility] Glucose WB/POC 100 70 - 115 mg/dL 04/28/2021 12:16 PM CDT [facility] Specimen Type Arterial 04/28/2021 12:16 PM CDT [facility] Blood BLOOD SPECIMEN / Unknown 04/28/2021 12:11 PM CDT 04/28/2021 12:16 PM CDT Andrea Ortiz MD LAB - POINT OF CARE ORDERABLES Performing Organization Address City/State/[facility] Co de Phone Number [facility] [address] [place] [phone], [facility] [phone] * PROTHROMBIN [id number] PANEL (04/28/2021 11:56 AM CDT) Pathologist [facility] Prothrombin [id number] Negative 05/03/2021 6:44 AM CDT [facility] ([facility]) Comment: Indication for testing: Assess genetic risk for thrombosis. NEGATIVE: The Factor II, prothrombin I46233P mutation, was not detected. Other causes of elevated prothrombin levels and hereditary forms of venous thrombosis have not been excluded. Recommendations: If clinically indicated, testing for other inherited or acquired thrombophilic disorders is recommended including DNA testing for the factor V Leiden mutation, measurement of total plasma homocysteine concentration, serological assays for anticardiolipin antibodies, multiple phospholipid-dependent coagulation assays for lupus inhibitor, protein C activity, protein S activity or free protein S antigen, and antithrombin activity. This result has been reviewed and approved by Sandra Sandoval M.D., Ph.D. 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 The expression of Factor II thrombophilia is impacted by coexisting genetic thrombophilic disorders, acquired thrombophilic disorders (eg, malignancy, hyperhomocysteinemia, high factor VIII levels), and circumstances including: , oral contraceptive use, hormone replacement therapy, selective estrogen receptor modulators, travel, central venous catheters, surgery, and organ transplantation. INCIDENCE: Approximately 2 percent of Caucasians and 0.3 percent of Americans are heterozygous; homozygosity occurs in 1 in 10,000 individuals. INHERITANCE: Incomplete autosomal dominant. PENETRANCE: The risk of thrombosis is increased 2-4 fold for heterozygotes and further increased for homozygotes. 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 PATHOGENIC VARIANT TESTED: F2 c.*97G>A (Q31921C). CLINICAL SENSITIVITY FOR VENOUS THROMBOSIS: Approximately 10 percent. METHODOLOGY: Polymerase chain reaction and fluorescence monitoring. ANALYTICAL SENSITIVITY AND SPECIFICITY: 99 percent. LIMITATIONS: Diagnostic errors can occur due to rare sequence variations. F2 gene variants, other than c.*97G>A (D70310N), will not be detected. This test was developed and its performance characteristics determined by [facility]. It has not been cleared or approved by the [place] Food and Drug Administration. This test was performed in a CLIA certified laboratory and is intended for clinical purposes. Counseling and informed consent are recommended for genetic testing. Consent forms are available online. Performed by [facility], [address] [place] [address],[place] [address] [email or web address], Megan Astorga MD, Lab. Director Source PT D22020D PCR Whole Blood 05/03/2021 6:44 AM CDT [facility] ([facility]) Blood BLOOD SPECIMEN / Unknown Lab Venipuncture / Unknown 04/28/2021 11:56 AM CDT 04/28/2021 12:23 PM CDT Andrea Ortiz MD LAB - COAGULATION OR DERABLES [facility]) [address] [id number] * FACTOR V LEIDEN MUTATION PANEL (04/28/2021 11:56 AM CDT) Factor V Leiden Source Whole Blood 05/01/2021 7:00 PM CDT [facility] ([facility]) Factor V Leiden PCR/FRET Negative 05/01/2021 7:00 PM CDT [facility] ([facility]) Comment: Indication for testing: Assess genetic risk for thrombosis. NEGATIVE: The factor V Leiden variant, c.1601G>A; p.[id number], was not detected. This does not exclude a genetic cause for thrombophilia. If this individual has had a previous venous thromboembolism, this negative result is unlikely to significantly reduce the risk for recurrence; thus, future clinical management to reduce recurrence should not be altered. This result has been reviewed and approved by Sandra Sandoval M.D., Ph.D. BACKGROUND INFORMATION: Factor V Leiden (F5) R506Q Mutation CHARACTERISTICS: Venous thromboembolism (VTE) is multifactorial caused by a combination of genetic and environmental factors. The Factor V Leiden (FVL) variant is the most common cause of inherited VTEs, accounting for over 90 percent of activated protein C (APC) resistance. Because the FVL variant eliminates the APC cleavage site, factor V is inactivated slower, thus persisting longer in blood circulation, leading to more thrombin production. Other genetic risk factors for VTE include, male sex and variants in antithrombin, protein C, protein S, or factor XIII. Non-genetic risk factors include, age, smoking, prolonged immobilization, malignant neoplasms, surgery, , oral contraceptives, estrogen replacement therapy, tamoxifen and raloxifene therapy. INCIDENCE OF FACTOR V LEIDEN VARIANT: Approximately 5 percent of Caucasians, 2 percent of Hispanics, 1 percent of Americans and 0.5 percent of Asians are heterozygous; homozygosity occurs in 1 in 1500 Caucasians. INHERITANCE: Semi-dominant; both heterozygotes and homozygotes are at increased risk for VTE. PENETRANCE: Lifetime risk of VTE is 10 percent for heterozygotes and 80 percent of homozygotes. 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 Legacy nomenclature: R506Q (1691G>A) CLINICAL SENSITIVITY: 20-50 percent of individuals with an isolated VTE have the FVL variant. METHODOLOGY: Polymerase chain reaction and fluorescence monitoring. ANALYTICAL SENSITIVITY AND SPECIFICITY: 99 percent. LIMITATIONS: Diagnostic errors can occur due to rare sequence variations. F5 gene mutations, other than p.[id number], will not be detected. This test was developed and its performance characteristics determined by [facility]. It has not been cleared or approved by the US Food and Drug Administration. This test was performed in a CLIA certified laboratory and is intended for clinical purposes. Counseling and informed consent are recommended for genetic testing. Consent forms are available online. Performed by [facility], [address] [place] [address] [email or web address], Megan Astorga MD, Lab. Director Blood BLOOD SPECIMEN / Unknown Lab Venipuncture / Unknown 04/28/2021 11:56 AM CDT 04/28/2021 12:23 PM CDT Andrea Ortiz MD LAB - COAGULATION OR DERABLES [facility]) [address] [place] [address], [facility] * CARDIOLIPIN ANTIBODY IGA (04/28/2021 11:56 AM CDT) Cardiolipin Antibody IgA <10 0 - 11 APL 04/30/2021 6:31 PM CDT [facility] ([facility]) Comment: INTERPRETIVE INFORMATION: Cardiolipin Antibodies, IgA 0-11 APL: Negative 12-19 APL: Indeterminate 20-80 APL: Low to Moderately Positive 81 APL or above: High Positive Performed By: [facility] [address] [place] [address] Cabinet Mounter: Megan Astorga MD Blood BLOOD SPECIMEN / Unknown Lab Venipuncture / Unknown 04/28/2021 11:56 AM CDT 04/28/2021 12:22 PM CDT Andrea Ortiz MD LAB - SEROLOGY ORDER TIAN Performing Organization Address City/[facility] Co de Phone Number [facility] ([facility]) [address] * CARDIOLIPIN ANTIBODY IGM (04/28/2021 11:56 AM CDT) [facility] Cardiolipin Antibody IgM 11 0 - 12 MPL 04/30/2021 7:46 AM CDT [facility] ([facility]) Comment: INTERPRETIVE INFORMATION: Anti-Cardiolipin IgM 0-12 MPL: Negative 13-19 MPL: Indeterminate 20-80 MPL: Low to Moderately Positive 81 MPL or above: High Positive The persistent presence of IgG and/or IgM cardiolipin (CL) antibodies in moderate or high levels (greater than 40 GPL and/or greater than 40 MPL units or greater than 99th percentile) is a laboratory criterion for the diagnosis of antiphospholipid syndrome (APS). Persistence is defined as moderate or high levels of IgG and/or IgM CL antibodies detected in two or more specimens drawn at least 12 weeks apart (J Throm Haemost. 2006;4:295-306). Lower positive levels of IgG and/or IgM CL antibodies (above cutoff but less than 40 GPL and/or less than 40 MPL units) may occur in patients with the clinical symptoms of APS; therefore, the actual significance of these levels is undefined. Results should not be used alone for diagnosis and must be interpreted in light of APS-specific clinical manifestations and/or other criteria phospholipid antibody tests. Performed By: [facility] [address] [place] [address] Cabinet Mounter: Megan Astorga MD Blood BLOOD SPECIMEN / Unknown Lab Venipuncture / Unknown 04/28/2021 11:56 AM CDT 04/28/2021 12:22 PM CDT Andrea Ortiz MD LAB - SEROLOGY ORDER TIAN Performing Organization Address City/[facility]/ZIP Co de Phone Number [facility] ([facility]) [address] * CARDIOLIPIN ANTIBODY IGG (04/28/2021 11:56 AM CDT) Cardiolipin Antibody IgG <10 0 - 14 GPL 04/30/2021 7:46 AM CDT [facility] ([facility]) Comment: INTERPRETIVE INFORMATION: Anti-Cardiolipin IgG Ab 0-14 GPL: Negative 15-19 GPL: Indeterminate 20-80 GPL: Low to Moderately Positive 81 GPL or above: High Positive The persistent presence of IgG and/or IgM cardiolipin (CL) antibodies in moderate or high levels (greater than 40 GPL and/or greater than 40 MPL units or greater than 99th percentile) is a laboratory criterion for the diagnosis of antiphospholipid syndrome (APS). Persistence is defined as moderate or high levels of IgG and/or IgM CL antibodies detected in two or more specimens drawn at least 12 weeks apart (J Throm Haemost. 2006;4:295-306). Lower positive levels of IgG and/or IgM CL antibodies (above cutoff but less than 40 GPL and/or less than 40 MPL units) may occur in patients with the clinical symptoms of APS; therefore, the actual significance of these levels is undefined. Results should not be used alone for diagnosis and must be interpreted in light of APS-specific clinical manifestations and/or other criteria phospholipid antibody tests. Performed By: [facility] [address] [place] [address] Cabinet Mounter: Megan Astorga MD Blood BLOOD SPECIMEN / Unknown Lab Venipuncture / Unknown 04/28/2021 11:56 AM CDT 04/28/2021 12:22 PM CDT Andrea Ortiz MD LAB - SEROLOGY ORDER TIAN [facility]) [address] * (ABNORMAL) PROTEIN C ACTIVITY (04/28/2021 11:56 AM CDT) Protein C Activity 183(H) 83 - 168 % 04/30/2021 8:32 PM CDT [facility] ([facility]) Comment: INTERPRETIVE INFORMATION: Protein C, Functional Patients on warfarin may have decreased protein C values. Patients should be off warfarin therapy for two weeks for accurate measurement of protein C levels. Artificially increased functional protein C values may be due to heparin therapy or the presence of direct thrombin inhibitors or factor Xa inhibitors. Access complete set of age- and/or gender-specific reference intervals for this test in the [facility] Test Directory ([facility]). Performed by [facility], [address] [place] [id number] [email or web address], Megan Astorga MD, Lab. Director Blood BLOOD SPECIMEN / Unknown Lab Venipuncture / Unknown 04/28/2021 11:56 AM CDT 04/28/2021 12:21 PM CDT Andrea Ortiz MD LAB - COAGULATION OR DERABLES Performing Organization Address City/[facility]/ZIP Co de Phone Number [facility] ([facility]) [address] [place] [address] * HOMOCYSTEINE BLOOD QUANTITATIVE (04/28/2021 11:56 AM CDT) [facility] Homocysteine 9.7 4.4 - 16.2 umol/L 04/28/2021 1:14 PM CDT [facility] Blood BLOOD SPECIMEN / Unknown Lab Venipuncture / Unknown 04/28/2021 11:56 AM CDT 04/28/2021 12:27 PM CDT Andrea Ortiz MD LAB - CHEMISTRY ORDE RABLES [facility] [address] [place] [address], [facility] [phone] * (ABNORMAL) FACTOR VIII ASSAY (04/28/2021 11:56 AM CDT) [facility] Factor VIII Activity 241(H) 45 - 225 % 04/28/2021 12:51 PM CDT [facility] Comment: Biologic population variability within the Factor VIII Activity reference range is strongly correlated with ABO blood group phenotype. Blood group specific ranges are as follows: BLOOD TYPE O: Factor VIII = 45-180 BLOOD TYPE A: Factor VIII = 60-200 BLOOD TYPE B AND AB COMBINED: Factor VIII = 80-225 Increased levels of Factor VIII Activity may be observed in patients with liver disease, inflammatory disease, uremia, vasculitis and generalized, advanced atherosclerosis. Blood BLOOD SPECIMEN / Unknown Lab Venipuncture / Unknown 04/28/2021 11:56 AM CDT 04/28/2021 12:21 PM CDT [facility] - 04/28/2021 12:51 PM CDT Patients on extended half-life factor VIII replacement (pegylated rVIII, etc.) or on factor VIII bypass (emicizumab) therapy: Please note that the reported aPTT and factor VIII activity (one stage assay) might be inaccurate, and possible factor VIII inhibitor titers will not be detected for extended periods of time. Specialized 2-stage chromogenic factor VIII assay should be utilized, if factor VIII activity is required to be determined in such patients. For more information, please consult the product package insert or contact a coagulation specialist of the laboratory at [phone]. Andrea Ortiz MD LAB - COAGULATION OR DERABLES [address] [address], [facility] [phone] * PROTEIN S ACTIVITY (04/28/2021 11:56 AM CDT) [facility] Protein S Activity 79 57 - 131 % 04/30/2021 8:32 PM CDT [facility] ([facility]) Comment: INTERPRETIVE INFORMATION: Protein S, Functional Patients on warfarin may have decreased functional protein S values. Patients should be off warfarin therapy for two weeks for accurate measurement of functional protein S. Artificially increased functional protein S values may be due to heparin therapy or the presence of direct thrombin inhibitors or factor Xa inhibitors. Access complete set of age- and/or gender-specific reference intervals for this test in the [facility] Test Directory ([facility]). Performed by [facility], [address] [place] [id number] [email or web address], Megan Astorga MD, Lab. Director Blood BLOOD SPECIMEN / Unknown Lab Venipuncture / Unknown 04/28/2021 11:56 AM CDT 04/28/2021 12:21 PM CDT Andrea Ortiz MD LAB - COAGULATION OR DERABLES [facility]) [address] * DNA ANTIBODY DS CRITHIDIA TITER (04/28/2021 11:55 AM CDT) [facility] dsDNA Antibody IgG <1:10 <1:10 2020 6:02 PM CDT [facility] ([facility]) Comment: INTERPRETIVE INFORMATION: Double-Stranded DNA (dsDNA) Antibody, IgG by IFA (using Crithidia luciliae) Positivity for anti-double stranded DNA (anti-dsDNA) IgG antibody is a diagnostic criterion of systemic lupus erythematosus (SLE). The presence of the anti-dsDNA IgG antibody is identified by IFA titer (Crithidia luciliae indirect fluorescent test [HERMINIA]). HERMINIA is highly specific for SLE with a sensitivity of 50-60 percent. Some patients with early or inactive SLE may be positive for anti-dsDNA IgG by [facility] but negative by HERMINIA. If the HERMINIA result is negative but the patient has a positive SUZETTE and clinical suspicion remains, consider antinuclear antibody (SILVA) testing by IFA. Additional information and recommendations for testing may be found at [email or web address]. Performed By: [facility] [address] [place] [address] Cabinet Mounter: Megan Astorga MD Blood BLOOD SPECIMEN / Unknown Lab Venipuncture / Unknown 04/28/2021 11:55 AM CDT 04/28/2021 12:22 PM CDT Andrea Ortiz MD LAB - SEROLOGY ORDER TIAN Performing Organization Address [facility]/ZIP Co de Phone Number [facility] ([facility]) [address] [place] [address] * SILVA BLOOD SCREEN W/REFLEX TITER (04/28/2021 11:55 AM CDT) SILVA IgG None Detected None Detected 04/30/2021 9:02 AM CDT [facility] ([facility]) Comment: If suspicion of connective tissue disease is strong and SILVA EIA is negative, consider testing for SILVA by IFA ([id number]). INTERPRETIVE INFORMATION: Anti-Nuclear Antibodies (SILVA), IgG by SUZETTE Antinuclear Antibodies (SILVA), IgG by SUZETTE: SILVA specimens are screened using enzyme-linked immunosorbent assay (SUZETTE) methodology. All SUZETTE results reported as Detected are further tested by indirect fluorescent assay (IFA) using HEp-2 substrate with an IgG-specific conjugate. The SILVA SUZETTE screen is designed to detect antibodies against dsDNA, histones, SS-A (Ro), SS-B (La), Philip, Philip/BEEF GRINDER, Scl-70, Phylicia-1, centromeric proteins, other antigens extracted from the HEp-2 cell nucleus. SILVA SUZETTE assays have been reported to have lower sensitivities than SILVA IFA for systemic autoimmune rheumatic diseases (SARD). Negative results do not necessarily rule out SARD. Performed By: [facility] [address] [place] [address] Cabinet Mounter: Megan Astorga MD Blood BLOOD SPECIMEN / Unknown Lab Venipuncture / Unknown 04/28/2021 11:55 AM CDT 04/28/2021 12:22 PM CDT Andrea Ortiz MD LAB - CHEMISTRY ORDE GARRY [facility] [employer] [facility]) [address] [place] [address], [facility] * BETA-2 GLYCOPROTEIN 1 ANTIBODY IGG/IGM PANEL (04/28/2021 11:55 AM CDT) Beta-2 Glycoprotein Antibody IgG 2 0 - 20 SGU 04/30/2021 7:18 PM CDT [facility] [employer] ([facility]) Beta-2 Glycoprotein Antibody IgM 15 0 - 20 SMU 04/30/2021 7:18 PM CDT [facility] [employer] ([facility]) Comment: INTERPRETIVE INFORMATION: [id number] I, IgG and IgM Antibody The persistent presence of IgG and/or IgM beta 2 glycoprotein I (B2GPI) antibodies (greater than 99th percentile) is a laboratory criterion for the diagnosis of antiphospholipid syndrome (APS). Persistence is defined as moderate or high levels of IgG and/or IgM B2GPI antibodies detected in two or more specimens drawn at least 12 weeks apart (J Throm Haemost. 2006;4:295-306). B2GPI results greater than 20 SGU (IgG) and/or SMU (IgM) are considered positive based on the cutoff values established for this test. International reference materials and consensus units for anti-B2GPI antibodies have not been established (Clin German Acta. 2012;413(1-2):358-60; Arthritis Rheum. 2012;64(1):1-10.). Strong clinical correlation is recommended for a diagnosis of APS. Low positive IgG and IgM B2GPI antibody levels should be interpreted in light of APS-specific clinical manifestations and/or other criteria phospholipid antibody tests. Performed By: [facility] [address] [place] [address] Cabinet Mounter: Megan Astorga MD Blood BLOOD SPECIMEN / Unknown Lab Venipuncture / Unknown 04/28/2021 11:55 AM CDT 04/28/2021 12:22 PM CDT Andrea Ortiz MD LAB - CHEMISTRY ORDE YOMILES Performing Organization Address [facility] de Phone Number [facility] ([facility]) [address] [place] [address] * ANTITHROMBIN III ACTIVITY (04/28/2021 11:55 AM CDT) [facility] Antithrombin III Activity 108.0 80.0 - 120.0 % 04/28/2021 1:21 PM CDT [facility] Blood BLOOD SPECIMEN / Unknown Lab Venipuncture / Unknown 04/28/2021 11:55 AM CDT 04/28/2021 12:21 PM CDT Narrative [facility] - 04/28/2021 1:21 PM CDT Thrombin inhibitors (i.e., hirudin, argatroban...) present in the sample to be tested may lead to an over-estimation of the AT level. Andrea Ortiz MD LAB - COAGULATION OR DERABLES Performing Organization Address City/[facility]/ZIP Co de Phone Number [facility] [address] [place] [address], [facility] [phone] * VAS BILATERAL VENOUS DUPLEX LE (04/28/2021 10:13 AM CDT) Anatomical Region Laterality Modality Lower Extremity Intravascular Ul trasound 04/28/2021 10:0 1 AM CDT Narrative Procedure Note Delonte Hemphill MD - 04/29/2021 Andrea Ortiz MD VASCULAR LAB ORDERAB LES * CBC W/O DIFFERENTIAL (04/28/2021 1:22 AM CDT) WBC 6.7 3.5 - 10.5 10 3/uL 04/28/2021 2:15 AM [facility] RBC 4.24 3.80 - 5.20 10 6/uL 04/28/2021 2:15 AM [facility] Hemoglobin 12.1 12.0 - 15.6 g/dL 04/28/2021 2:15 AM [facility] Hematocrit 36.6 35.0 - 45.0 % 04/28/2021 2:15 AM [facility] MCV 86.3 80.7 - 98.3 fL 04/28/2021 2:15 AM [facility] MCH 28.5 26.7 - 34.0 pg 04/28/2021 2:15 AM [facility] MCHC 33.1 30.8 - 35.9 g/dL 04/28/2021 2:15 AM [facility] Platelet Count 332 150 - 400 10 3/uL 04/28/2021 2:15 AM [facility] RDW-SD 42.1 36.0 - 50.0 fL 04/28/2021 2:15 AM [facility] RDW-CV 13.5 11.2 - 14.8 % 04/28/2021 2:15 AM [facility] MPV 10.9 9.4 - 12.9 fL 04/28/2021 2:15 AM [facility] nRBC Absolute 0.00 0 10 3/uL 04/28/2021 2:15 AM CDT [facility] nRBC Auto 0.0 0 /100 WBC 04/28/2021 2:15 AM CDT [facility] Blood BLOOD SPECIMEN / Unknown Lab Venipuncture / Unknown 04/28/2021 1:22 AM CDT 04/28/2021 2:05 AM CDT Jaquelin Funes MD LAB - HEMATOLOGY ORD [place] [address] [address], [place] [phone] * PHOSPHORUS BLOOD (04/28/2021 1:22 AM CDT) Phosphorus 4.0 2.9 - 5.1 mg/dL 04/28/2021 2:31 AM CDT [facility] Blood BLOOD SPECIMEN / Unknown Lab Venipuncture / Unknown 04/28/2021 1:22 AM CDT 04/28/2021 2:05 AM CDT Jaquelin Funes MD LAB - CHEMISTRY CITLALY CASTAÑEDA [address] [address], [place] [phone] * MAGNESIUM BLOOD (04/28/2021 1:22 AM CDT) Magnesium 1.9 1.6 - 2.6 mg/dL 04/28/2021 2:31 AM CDT [facility] Blood BLOOD SPECIMEN / Unknown Lab Venipuncture / Unknown 04/28/2021 1:22 AM CDT 04/28/2021 2:05 AM CDT Jaquelin Funes MD LAB - CHEMISTRY [place]Y [place]STAÑEDA [address] [address], [place] [phone] * LIPID PROFILE (04/28/2021 1:22 AM CDT) Cholesterol Total 142 <200 mg/dL 04/28/2021 2:31 AM CDT [facility] HDL 43 >40 mg/dL 04/28/2021 2:31 AM CDT [facility] Comment: ATP III Classification of HDL Cholesterol: <40 mg/dL: Considered a major risk factor. >60 mg/dL: Considered a negative risk factor. LDL Calculated 81 <100 mg/dL 04/28/2021 2:31 AM CDT [facility] Comment: ATP III Classification of LDL Cholesterol: <100 mg/dL: Optimal 100 - 129 mg/dL: Near Optimal/Above Optimal 130 - 159 mg/dL: Borderline High 160 - 189 mg/dL: High >190 mg/dL: Very High Triglycerides 91 <150 mg/dL 04/28/2021 2:31 AM CDT [facility] Comment: ATP III Classification of Triglycerides: <150 mg/dL: Normal 150 - 199 mg/dL: Borderline High 200 - 400 mg/dL: High >500 mg/dL: Very High Blood BLOOD SPECIMEN / Unknown Lab Venipuncture / Unknown 04/28/2021 1:22 AM CDT 04/28/2021 2:05 AM CDT Jaquelin Funes MD LAB - CHEMISTRY CITLALY CASTAÑEDA [facility] Organization Address City/State/ZIP Co de Phone Number [facility] [address] [place] [phone], [facility] [phone] * MRI BRAIN NON CONTRAST (04/27/2021 10:43 PM CDT) Anatomical Region Laterality Modality Head Magnetic Resonan ce 04/28/2021 7:05 AM CDT Impressions 04/28/2021 9:07 AM CDT IMPRESSION: Normal MR appearance of the brain. Report drafted by Khalif Cowan M.D. (resident) I, Dr. TIERRA BOJORQUEZ have personally reviewed and interpreted this examination/study. This report was electronically signed by TIERRA BOJORQUEZ on 04/28/2021 9:07 AM . Narrative 04/28/2021 9:07 AM CDT MRI BRAIN WITHOUT CONTRAST CLINICAL INFORMATION:R53.1: Weakness TECHNIQUE: MRI of the brain was performed without intravenous contrast according to standard protocol. COMPARISON: CT head and CTA head and neck on 04/27/2021 FINDINGS: The brain parenchyma is within normal limits. There is no infarction or hemorrhage. There is no intracranial mass or mass effect. There is no hydrocephalus or extra-axial fluid collection. The sella and posterior fossa structures are within normal limits. Flow voids of major intracranial vessels are noted. The paranasal sinuses and mastoid air cells are grossly aerated. The orbits are within normal limits. Procedure Note Tierra Bojorquez MD - 04/28/2021 MRI BRAIN WITHOUT CONTRAST CLINICAL INFORMATION:R53.1: Weakness TECHNIQUE: MRI of the brain was performed without intravenous contrast according to standard protocol. COMPARISON: CT head and CTA head and neck on 04/27/2021 FINDINGS: The brain parenchyma is within normal limits. There is no infarction or hemorrhage. There is no intracranial mass or mass effect. There is no hydrocephalus or extra-axial fluid collection. The sella and posterior fossa structures are within normal limits. Flow voids of major intracranial vessels are noted. The paranasal sinuses and mastoid air cells are grossly aerated. The orbits are within normal limits. IMPRESSION: Normal MR appearance of the brain. Report drafted by Khalif Cowan M.D. (resident) I, Dr. TIERRA BOJORQUEZ have personally reviewed and interpreted this examination/study. This report was electronically signed by TIERRA BOJORQUEZ on 04/28/2021 9:07AM . Jaquelin Funes MD MR ORDERABLES * TROPONIN I (04/27/2021 5:16 PM CDT) Only the most recent of4 resultswithin the time period is included. Troponin I <0.010 <0.032 ng/mL 04/27/2021 5:56 PM CDT [facility] Blood BLOOD SPECIMEN / Unknown Lab Venipuncture / Unknown 04/27/2021 5:16 PM CDT 04/27/2021 5:23 PM CDT Jaquelin Funes MD LAB - CHEMISTRY ORDE RABLES Performing Organization Address City/[facility]/ZIP Co de Phone Number [facility] [address] [place] [address], [facility] [phone] * ECHO COMPLETE W BUBBLE STUDY (04/27/2021 4:13 PM CDT) Anatomical Region Laterality Modality Chest Echo 04/27/2021 3:24 PM CDT Narrative Procedure Note Blanco Andrews MD - 04/27/2021 Jaquelin Funes MD ECHOCARDIOGRAPHY RAD IANT * BLOOD TYPE VERIFICATION (04/27/2021 1:01 PM CDT) ABO Rh O POS 04/27/2021 2:1 3 PM CDT [facility] Blood Bank BLOOD SPECIMEN / Unknown Venipuncture / Unknown 04/27/2021 1:01 PM CDT 04/27/2021 1:19 PM CDT Jaquelin Funes MD LAB - BLOOD BANK ORD ERABLES Performing Organization Address City/[facility]/ZIP Co de Phone Number [facility] [address] [place] [address], [facility] [phone] * SARS-COV-2 (COVID-19)+INFLU A+B PCR RAPID (04/27/2021 12:49 PM CDT) COVID-19 PCR Not detected Not detected 04/27/20 1:30 PM CDT [facility] Influenza A Rapid YOEL Not Detected Not Detected 04/27/2021 1:30 PM CDT [facility] Influenza B YOEL Rapid Not Detected Not Detected 04/27/2021 1:30 PM CDT [facility] Microbiology SPECIMEN FROM NASOPHARYNGEAL STRUCTURE / Unknown Collection / Unknown 04/27/2021 12:49 PM CDT 04/27/2021 1:06 PM CDT Narrative [facility] - 04/27/2021 1:30 PM CDT Influenza assay performed by Nucleic Acid Amplification. Results do not exclude the possibility of a mixed viral infection. NOTE: Detecting and identifying specific viral nucleic acids from individuals exhibiting signs and symptoms of respiratory infection aids in the diagnosis of respiratory infection, if used in conjunction with other clinical and laboratory findings. The results of this test should not be used as the sole basis for diagnosis, treatment, or patient management decisions. This nucleic acid amplification assay performance was validated by [facility]. This test has been authorized by the Food and Drug administration (FDA)under an Emergency Use Authorization (EUA). This test has been validated in accordance with the FDA's guidance document Policy for Diagnostic Testing in Laboratories Certified to perform High Complexity Testing under CLIA prior to Emergency Use Authorization for Coronavirus Disease-2019 during the Public Health Emergency issued on November 15, 2019. FDA independent review of this validation is pending. This test is only authorized for the duration of time the declaration that circumstances exist justifying the authorization of emergency use of in vitro diagnostic tests for detection of SARS-CoV-2 virus and/or diagnosis of COVID-19 infection under section 564(b)(1) of the Act, 21 U.S.C 360bbb-3 (b)(1), unless the authorization is terminated or revoked sooner. Fact Sheets for this EUA assay are available upon request. Jaquelin Funes MD LAB - MICROBIOLOGY O RDERABLES [facility] [address] [place] [phone], [facility] [phone] * PT-INR [facility] (04/27/2021 11:20 AM CDT) PT 14.0 12.1 - 14.8 Seconds 04/27/2021 11:40 AM CDT [facility] INR 1.1 See Comment 04/27/2021 11:40 AM CDT [facility] Comment:The suggested therap eutic range for standard coumadin (warfarin) therapy is an INR of 2.0-3.0. For high-risk patients (Mechanical Mitral Valve Prosthesis, etc.), the suggested prophylactic therapeutic range is an INR of 2.5-3.5. Blood BLOOD SPECIMEN / Unknown Venipuncture / Unknown 04/27/2021 11:20 AM CDT 04/27/2021 11:26 AM CDT Jaquelin Funes MD LAB - COAGULATION OR DERABLES Performing Organization Address City/State/[facility] Co de Phone Number [facility] [address] [place] [address], [facility] [phone] * COMPREHENSIVE METABOLIC PANEL (04/27/2021 11:20 AM T) BUN 8 7 - 26 mg/dL 04/27/2021 11:58 AM [facility] Creatinine 0.67 0.56 - 0.96 mg/dL 04/27/2021 11:58 AM [facility] Sodium 139 136 - 145 mmol/L 04/27/2021 11:58 AM [facility] Potassium 3.7 3.5 - 4.5 mmol/L 04/27/2021 11:58 AM [facility] Chloride 105 98 - 107 mmol/L 04/27/2021 11:58 AM [facility] CO2 27 22 - 29 mmol/L 04/27/2021 11:58 AM [facility] Glucose 112 70 - 115 mg/dL 04/27/2021 11:58 AM [facility] Calcium 9.4 8.4 - 10.2 mg/dL 04/27/2021 11:58 AM [facility] Protein Total 6.3 6.0 - 8.3 g/dL 04/27/2021 11:58 AM [facility] Albumin 3.5 3.4 - 5.0 g/dL 04/27/2021 11:58 AM [facility] Bilirubin Total 0.5 0.2 - 1.2 mg/dL 04/27/2021 11:58 AM [facility] Alkaline Phosphatase 55 40 - 150 U/L 04/27/2021 11:58 AM [facility] ALT 15 5 - 55 U/L 04/27/2021 11:58 AM [facility] AST 14 5 - 34 U/L 04/27/2021 11:58 AM [facility] Anion Gap 11 8 - 18 04/27/2021 11:58 AM [facility] BUN/Creatinine Ratio 12 7 - 23 04/27/2021 11:58 AM [facility] Osmolality Calculated 287 270 - 300 mOsm/kg 04/27/2021 11:58 AM [facility] Albumin/Globulin Ratio 1.3 1.1 - 2.3 04/27/2021 11:58 AM [facility] eGFR by CKD-EPI >90 >=90 mL/min/1.7 3 m2 04/27/2021 11:58 AM [facility] Blood BLOOD SPECIMEN / Unknown Venipuncture / Unknown 04/27/2021 11:20 AM CDT 04/27/2021 11:28 AM CDT Jaquelin Funes MD LAB - CHEMISTRY CITLALY CASTAÑEDA [facility] Organization Address City/[facility] Co de Phone Number [facility] [address] [place] [address], [facility] [phone] * CT ANGIO BRAIN NECK STROKE (04/27/2021 11:12 AM CDT) Anatomical Region Laterality Modality Head Computed Tomogra phy 04/27/2021 12:0 0 PM CDT Impressions 04/27/2021 12:50 PM CDT IMPRESSION: 1. No acute intracranial hemorrhage. 2. No large arterial occlusions or significant stenoses identified in the head or neck. This report was electronically signed by RUSLAN GONZALEZ on 04/27/2021 12:50 PM . Narrative 04/27/2021 12:[address] ANGIO BRAIN NECK STROKE DATE: 04/27/2021 11:36 AM EXAMINATION: 1. Computed tomographic (CT) angiography of the head with contrast 2. CT angiography of the neck with contrast HISTORY: R53.1: Weakness TECHNIQUE: CT angiography of the head and neck was obtained after the uneventful administration of 85 mL Isovue-370 intravenous contrast. Three dimensional postprocessing was performed by the technologist and sent to the workstation for review. COMPARISON: Outside facility CTA of the head and neck from 04/27/2021 at 8:50 AM FINDINGS: Non-angiographic findings: Please refer to the noncontrast head CT for the non-angiographic findings. No soft tissue abnormalities are identified in the neck. There are degenerative changes of the cervical spine, worst at C6-C7 with a disc with foot complex causing up to moderate spinal canal stenosis and mild cord abutment. Dilated pulmonary artery compatible with pulmonary hypertension. Scattered tiny groundglass opacities are nonspecific. 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 Angiographic findings: The visible aortic arch appears normal. The configuration of the brachiocephalic vessels is typical. The innominate artery and both subclavian arteries appear normal. The right common and internal carotid arteries as well as the right carotid bifurcation appear normal. The left common and internal carotid arteries as well as the left carotid bifurcation appear normal. The cervical vertebral arteries appear normal. The distal internal carotid arteries appear normal. The previously seen narrowing the/filling defect in the distal M1 segment of the left MCA has resolved although suspected minimal irregularity of the vessel persists. Minimal narrowing of a proximal left M2 branch. The anterior and middle cerebral arteries appear normal. The distal vertebral arteries appear normal. The basilar artery and posterior cerebral arteries appear normal. No aneurysms, vascular occlusions, or intracranial stenoses are identified. Procedure Note Ruslan Gonzalez MD - 04/27/2021 CT ANGIO BRAIN NECK STROKE DATE: 04/27/2021 11:36 AM EXAMINATION: 1. Computed tomographic (CT) angiography of the head with contrast 2. CT angiography of the neck with contrast HISTORY: R53.1: Weakness TECHNIQUE: CT angiography of the head and neck was obtained after the uneventful administration of 85 mL Isovue-370 intravenous contrast.Three dimensional postprocessing was performed by the technologist and sent to the workstation for review. COMPARISON: Outside facility CTA of the head and neck from 04/27/2021 at 8:50 AM FINDINGS: Non-angiographic findings: Please refer to the noncontrast head CT for the non-angiographicfindings. No soft tissue abnormalities are identified in the neck. There are degenerative changes of the cervical spine, worst at C6-C7 with a disc with foot complex causing up to moderate spinal canal stenosis and mild cord abutment. Dilated pulmonary artery compatible with pulmonary hypertension. 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 Angiographic findings: The visible aortic arch appears normal. The configuration of the brachiocephalic vessels is typical. The innominate artery and both subclavian arteries appear normal. The right common and internal carotid arteries as well as the right carotid bifurcation appear normal. Theleft common and internal carotid arteries as well as the left carotid bifurcation appear normal. The cervical vertebral arteries appearnormal. The distal internal carotid arteries appear normal. The previously seen narrowing the/filling defect in the distal M1 segment of the left MCAhas resolved although suspected minimal irregularity of the vessel persists. Minimal narrowing of a proximal left M2 branch. The anterior and middle cerebral arteries appear normal. The distal vertebral arteries appear normal. The basilar artery and posterior cerebral arteries appearnormal. No aneurysms, vascular occlusions, or intracranial stenoses are identified. IMPRESSION: 1. No acute intracranial hemorrhage. 2. No large arterial occlusions or significant stenoses identified inthe head or neck. This report was electronically signed by RUSLAN GONZALEZ on04/27/2021 12:50 PM . Andrea Ortiz MD CT ORDERABLES * CT BRAIN - Stroke (04/27/2021 11:07 AM CDT) Anatomical Region Laterality Modality Head Computed Tomogra phy 04/27/2021 11:2 3 AM CDT Impressions 04/27/2021 11:34 AM CDT IMPRESSION: 1.No acute intracranial hemorrhage. COMMUNICATION: A preliminary report was submitted and synapse at 11:09 AM. Findings were communicated with: Dr. Carrasco by Khalif Huerta on 04/27/2021 at at 11:25 AM. This report was electronically signed by RUSLAN GONZALEZ on 04/27/2021 11:34 AM . Narrative 04/27/2021 11:[address] BRAIN STROKE EXAMINATION: Computed tomography (CT) of the head without contrast DATE: 04/27/2021 11:17 AM HISTORY: Code Stroke TECHNIQUE: CT of the head was performed without contrast according to standard protocol. COMPARISON: No prior study is available for comparison at the time of this dictation. FINDINGS: No acute intra- or extra-axial fluid collections are identified. There is mild generalized volume loss with the increased subarachnoid CSF spaces near the vertex. The ventricles are of normal size, shape, and morphology. The basilar cisterns are patent. No mass effect or midline shift is seen. The freeman-white matter differentiation is normal. Suspected minimal white matter hypoattenuation is a nonspecific finding. No acute calvarial fracture is identified. The orbits appear normal. There is mild paranasal sinus disease. The mastoid air cells are clear. There are scattered tiny nonspecific calcific densities in the scalp. No soft tissue abnormality is identified. Procedure Note Ruslan Gonzalez MD - 04/27/2021 CT BRAIN STROKE EXAMINATION: Computed tomography (CT) of the head without contrast DATE: 04/27/2021 11:17 AM HISTORY: Code Stroke TECHNIQUE: CT of the head was performed without contrast according to standard protocol. COMPARISON: No prior study is available for comparison at the time ofthis dictation. FINDINGS: No acute intra- or extra-axial fluid collections are identified. Thereis mild generalized volume loss with the increased subarachnoid CSF spaces near the vertex. The ventricles are of normal size, shape, andmorphology. The basilar cisterns are patent. No mass effect or midline shift isseen. The freeman-white matter differentiation is normal. Suspected minimal white matter hypoattenuation is a nonspecific finding. No acute calvarial fracture is identified. The orbits appear normal. There is mildparanasal sinus disease. The mastoid air cells are clear. There are scattered tiny nonspecific calcific densities in the scalp. No soft tissue abnormalityis identified. IMPRESSION: 1.No acute intracranial hemorrhage. COMMUNICATION: A preliminary report was submitted and synapse at 11:09 AM. Findings were communicated with: Dr. Carrasco by Khalif Huerta on 04/27/2021 at at 11:25 AM. This report was electronically signed by RUSLAN GONZALEZ on04/27/2021 11:34 AM . Jaquelin Funes MD CT ORDERABLES * STREP A SCREEN - POINT OF CARE (AMB) STL (01/12/2017) Only the most recent of2 resultswithin the time period is included. Strep A Rapid POCT Negative Negative Strep A Internal Control Present Lot # [id number] Expiration Date [id number] Throat ENTIRE THROAT (SURFACE REGION OF NECK) / Unknown 01/12/2017 Dino Murillo DIVERSIONAL THERAPIST-SENIOR PRODUCT INTEGRITY ENGINEER LAB - POINT OF CARE ORDERABLES Care Teams Chimney Builder Helper Relationship Specialty Start Date End Date Cydney Urban MD [address] [place] [phone] PCP - General Family Medicine 07/23/16
--- OUTSIDE RECORDS SUMMARY | 2024-10-27 17:06 | XMS_ITS | Clinical Summary ---
Author Organization [facility] [employer] Address [address] [place] [address] Care Team Providers Care Seniour Insight Manager Name Role Phone Cydney Urban MD Primary Care Provider + Source Comments [facility],non-owned Affiliates and Associated Physician Practices is amultiple site organization consisting of ambulatory clinics and hospital sitesin [place], [place], [place] and [place]. This disclosure is being madepursuant to the Care Everywhere program and may not contain all information available regarding this patient. Last updated 18.[facility] [employer] Allergies Active Allergy Reactions Criticality Noted Date [...] Immunizations Name Administration Dates Next Due Covid Shareablee primary monoval ent 12+ yr 0.3mL Purple [...] 36.7 C (98 F) 10/05/2022 11:11 AM DELIVERY MAN Respiratory Rate 16 07/10/2022 4:00 PM CDT Oxygen Saturation 98% 05/14/2024 8:08 AM CDT Inhaled Oxygen Concentration - - Weight 130.2 kg (287 lb) 05/14/2024 9:02 AM CDT Height 175.3 cm (5' 9 ) 05/14/2024 9:02 AM CDT Body Mass Index 42.38 05/14/2024 9:02 AM CDT Plan of Treatment Upcoming Encounters Date Type Department Care Team (Late st Contact Info) Description 05/13/2025 1:00 PM CDT Office Visit [facility] - Cardiology [id number] [place] [address] Alejandrina Parry MD [id number] [place] [address] Health Maintenance Due Date Last Done Comments COLOGUARD (AGES 45-75) - COLON CA SCREENING 1970 COLON MONITORING 1970 COLONOSCOPY - COLON CA SCREENING 1970 CT COLONOGRAPHY - COLON CA SCREENING 1970 Colorectal Cancer Screening 1970 FIT - COLON CA SCREENING 1970 FLEX SIG - COLON CA SCREENING 1970 MAMMOGRAM 1970 PAP SMEAR 1970 HIV SCREENING 1985 HEPATITIS C SCREENING 02/19/1988 DTAP/TDAP/TD VACCINES (1 - Tdap) 1989 HEPATITIS B VACCINE (1 of 3 - 19+ 3-dose series) 1989 PNEUMOCOCCAL VACCINE 50+ (1 of 2 - PCV) 1989 PNEUMOCOCCAL VACCINE (1 of 2 - PCV) 1989 ZOSTER VACCINE (1 of 2) 02/24/2020 COVID-19 VACCINE (4 - 2023- season) 2024 07/04/2021, 11/23/2020, 11/02/2020 INFLUENZA VACCINE (#1) 2024 DEPRESSION SCREENING 09/17/2024 SCREENING FOR DIABETES 07/08/2025 , 04/28/2021, 04/28/2021, Additional history exists HIB VACCINE Aged Out No longer eligi ble based on patient's age to complete this topic HPV VACCINE Aged Out No longer eligi ble based on patient's age to complete this topic MENINGOCOCCAL (Group B) VACCINE Aged Out No longer eligible based on patient's age to complete this topic MENINGOCOCCAL VACCINE Aged Out No esequiel mikayla eligible based on patient's age to complete this topic Medical Devices Implanted Type Area Transfusion Aide Device Identifier Shelf Expiration Date Model / Serial / Lot Occl Sept 20mm - [id number] Implanted:Qty: 1 on 07/10/2022 by Alejandrina Parry MD at [facility] N/A: Heart [employer] 01/15/2024 [id number] / [id number] / [id number] Procedures Procedure Name Priority Date/Time Associated Diagnosis [...] 10.4 mg/dL [facility] Comment: Test Performed at: [facility] [address] [place] [address] RAIN QUIGLEY DO,MPH Blood BLOOD SPECIMEN / Unknown 07/08/2022 7:11 AM CDT 07/08/2022 7:12 AM CDT Alejandrina Parry MD LAB - CHEMISTRY ORD ERABLES [facility] [address] [place] [address] from Last 3 Months or Most Recently Relevant to Health Maintenance Advance Directives * Full Code (Latest Code Status on File) Date Activated Date Inactivated Comments 07/10/2022 12:31 PM 07/10/2022 5:34 PM * Full Code Date Activated Date Inactivated Comments 04/27/2021 11:27 AM 04/28/2021 7:07 PM Care Teams Seniour Insight Manager Relationship Specialty Start Date End Date Cydney Urban MD [address] [place] [address] PCP - General Family Medicine 07/23/16
--- OUTSIDE RECORDS SUMMARY | 2024-10-27 17:06 | XMS_ITS | Referral Summary ---
Author Organization [address] Address [facility] [place] [address] Care Team Providers Care Mems Device Scientist Name Role Phone Cydney Urban MD Primary Care Provider Harpal Kendrick MD Unavailable + Allergies Active Allergy Reactions Criticality Noted Date Comments Gentamicin Itching,Rash,Eye irritation,Redness Medium 11/01/2004 gentamycin eye drops Medications LORazepam (ATIVAN) 1 mg tabletIndications: anxiety Take 1 mg by mouth every 6 (six) hours as needed 10/28/19 21 Active venlafaxine XR (EFFEXOR-XR) 75 mg 24 hr capsuleIndications :Anxiety with Depression Take 225 mg by mouth sustainability director before breakfast 11/14/19 21 Active albuterol HFA (PROVENTIL HFA,VENTOLIN HFA,PROAIR HFA) 90 mcg/actuation inhaler Inhale 1 puff daily as needed for shortness of breath Active azelastine 205.5 mcg (0.15 %) spray,non-aerosolI ndications:Seasona l Allergic Rhinitis Administer 1 spray into each nostril nightly 02/17/20 21 Active fexofenadine (Ani Allergy) 60 mg tablet Take 1 tablet (60 mg total) by mouth daily Crush medications for 1 week after surgery 04/06/20 21 Active hydroCHLOROthiazid e (MICROZIDE) 12.5 mg capsuleIndications :hypertension Take 1 capsule (12.5 mg total) by mouth sustainability director before breakfast Crush medications for 1 week after surgery 04/06/20 Active Additional Information Patient not taking.Reported on 05/23/2022 carvediloL (COREG) 6.25 mg tabletIndications: hypertension Take 1 tablet (6.25 mg total) by mouth sustainability director before breakfast Crush medications for 1 week after surgery 04/06/20 Active liothyronine (CYTOMEL) 5 mcg tabletIndications: hypothyroidism Take 1 tablet (5 mcg total) by mouth sustainability director before breakfast Crush medications for 1 week after surgery 04/06/20 Active Synthroid 150 mcg tabletIndications: hypothyroidism Take 1 tablet (150 mcg total) by mouth sustainability director before breakfast Crush medications for 1 week after surgery 04/06/20 Active ondansetron ODT (ZOFRAN-ODT) 4 mg disintegrating tabletIndications: Prevention of Post-Operative Nausea and Vomiting Take 1 tablet (4 mg total) by mouth every 8 (eight) hours as needed for nausea or vomiting 20 tablet 2 04/06/20 Active acetaminophen (TYLENOL) 32 mg/mLIndications:P ain Take 31.2 mL (1,000 mg total) by mouth every 6 (six) hours as needed for pain 473 mL 04/06/20 Active atorvastatin (LIPITOR) 40 mg tablet Take 40 mg by mouth nightly 04/28/20 Active rivaroxaban (Xarelto DVT-PE Treat 30d Start) 15 mg (42)- 20 mg (9) tablets,dose pack tablet Take 20 mg by mouth daily 04/29/20 Active Eliquis 5 mg tablet TAKE 2 TABLETS BY MOUTH TWICE DAILY FOR 6 DAYS 04/28/20 Active Active Problems Problem Noted Date Diagnosed Date Deep venous thrombosis of ri ght femoral vein with thrombophlebitis 04/29/2021 PFO (patent foramen ovale) 04/29/2021 Other specified hypothyroidism 04/28/2021 TIA (transient ischemic attack) 04/27/2021 Cerebrovascular accident (CVA) 04/27/2021 Hypertension 04/27/2021 Paraesophageal hernia 02/08/2021 Overview (02/08/2021): Added automatically from request for surgery [id number] Anxiety disorder 04/15/2019 Asthma 04/15/2019 Depressive disorder 04/15/2019 Obesity 04/15/2019 Seasonal allergies 04/15/2019 Closed fracture of fifth metatarsal bone of left foot 04/15/2019 Social History Tobacco Use Types Packs/Day Years Used Date Smoking Tobacco: Never Smokeless Tobacco: Never Tobacco Cessation:Counseling Given: Not Answered AUDIT-C Answer Date Recorded Q1: How often do you have a drink containing alc ohol? Monthly or less 04/04/2021 Q2: How many drinks containi ng alcohol do you have on a typical day when you are drinking? 1 or 2 04/04/2021 Q3: How often do you have si x or more drinks on one occasion? 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 Gender Identity Female 02/04/2021 7:14 PM CDT Sexual Orientation Straight 02/04/2021 7: 14 PM CDT Last Filed Vital Signs Vital Sign Reading Time Taken Comments Blood Pressure 120/78 05/23/2022 9:07 AM CDT Pulse 79 05/23/2022 9:07 AM CDT Temperature 36.8 C (98.3 F) 05/23/2022 9:07 AM CDT Respiratory Rate 16 05/23/2022 9:07 AM CDT Oxygen Saturation 98% 05/23/2022 9:07 AM CDT Inhaled Oxygen Concentration - - Weight 115.4 kg (254 lb 6.4 oz) 05/23/2022 9:07 AM CDT Height 175.3 cm (5' 9 ) 05/23/2022 9:07 AM CDT Body Mass Index 37.57 05/23/2022 9:07 AM CDT Plan of Treatment Not on file Medical Devices Implanted Type Area Biomass Technician Device Identifier Shelf Expiration Date Model / Serial / Lot Wl [employer] [id number] [employer]-A 10x7cm Reinforcement Tissue Mesh Surgical Synthetic - [id number] - [id number] Implanted:Qty: 1 on 04/04/2021 by Moira Crain MD at [facility] Mesh N/A: Abdomen Wl [employer] [id number] 01/02/2024 [id number] / [id number] / Insurance CHOICE PLUS [facility] HMO/PPO Address: [address] [place] [address] CHOICE PLUS [facility] HMO/PPO Address: [place] [address] CHOICE PLUS [facility] HMO/PPO Address: [address] [place] [address] Advance Directives For more information, please contact: [phone] * Full Code (Latest Code Status on File) Date Activated Date Inactivated Comments 04/04/2021 9:33 PM 04/06/2021 5:10 PM Care Teams Mems Device Scientist Relationship Specialty Start Date End Date Cydney Urban MD [address] [place] [address] PCP - General 01/24/21 Harpal Kendrick MD [address] [place] [address] Referring Physician Gastroenterology 04/05/21
--- OUTSIDE RECORDS SUMMARY | 2024-10-27 17:06 | XMS_ITS | Clinical Summary ---
Author Organization [address] Address [facility] [place] [address] Care Team Providers Care Finished Goods Inspector Name Role Phone Cydney Urban MD Primary [...] with Depression Take 225 mg by mouth butt sawyer before breakfast 11/14/19 21 Active albuterol HFA [...] 1 capsule (12.5 mg total) by mouth butt sawyer before breakfast Crush medications for 1 week after surgery 04/06/20 Active Additional Information Patient not taking.Reported on 05/23/2022 carvediloL (COREG) 6.25 mg tabletIndications: hypertension Take 1 tablet (6.25 mg total) by mouth butt sawyer before breakfast Crush medications for 1 week after surgery 04/06/20 Active liothyronine (CYTOMEL) 5 mcg tabletIndications: hypothyroidism Take 1 tablet (5 mcg total) by mouth butt sawyer before breakfast Crush medications for 1 week after surgery 04/06/20 Active Synthroid 150 mcg tabletIndications: hypothyroidism Take 1 tablet (150 mcg total) by mouth butt sawyer before breakfast Crush medications for 1 week [...] (02/08/2021): Added automatically from request for surgery [id number] Anxiety disorder 04/15/2019 Asthma 04/15/2019 Depressive disorder 04/15/2019 Obesity 04/15/2019 Seasonal allergies 04/15/2019 Closed fracture of fifth metatarsal bone of left foot 04/15/2019 Surgical History Surgery Date Site/Laterality Comments TONSILLECTOMY/ADENOIDECTOMY 09/17/1975 - 09/16/1976 SECTION 09/17/1995 - 09/16/1996 PILONIDAL CYST DRAINAGE 09/17/1982 - 09/16/1983 Medical History Medical History Date Comments Paraesophageal hernia Hypothyroidism HTN (hypertension) Depression Anxiety Asthma Scoliosis mild Family History Medical History Relation Name Comments Heart disease Father onset 60s Lung cancer Mother Diabetes Paternal Grandmother Relation Name Status Comments Father Mother Paternal Grandmother Social History Tobacco Use Types Packs/Day Years [...] on file Legal Sex Female 2:02 AM ART HISTORY INSTRUCTOR Gender Identity Female 02/04/2021 7:14 PM CDT Sexual Orientation Straight 02/04/2021 7: 14 PM CDT Obstetrics History Last Filed Vital Signs Vital Sign Reading [...] 05/23/2022 9:07 AM CDT Plan of Treatment Health Maintenance Due Date Last Done Comments Breast Cancer Screening-Mammogram 1970 Cervical Cancer Screening 1970 Colon Cancer Screening-Colonoscopy 1970 Depression Screening 1970 Hepatitis C Screening 1970 Pneumococcal vaccine <65 (1 of 2 - PCV) 02/24/1976 DTaP/Tdap/Td Vaccine (1 - Tdap) 1981 Hepatitis B Screening 02/24/1988 Regular Well Visit/Exam 18-64 02/24/1988 Zoster Vaccine (1 of 2) 02/24/2020 Influenza Vaccine (#1) 2024 , 05/29/2019, 06/07/2018, Additional history exists Medical Devices Implanted Type Area Ferryboat Operator Device Identifier Shelf Expiration Date Model / Serial / Lot [employer] [id number] [employer] 10x7cm Reinforcement Tissue Mesh Surgical Synthetic - [id number] - [id number] Implanted:Qty: 1 on 04/04/2021 by Moira Crain MD at [facility] Mesh N/A: Abdomen Wl [employer] [id number] 01/02/2024 [id number] / [id number] / Insurance CHOICE PLUS CHOICE PLUS Advance Directives For more information, please contact: [phone] * Full Code (Latest Code Status on File) Date Activated Date Inactivated Comments 04/04/2021 9:33 PM 04/06/2021 5:10 PM Care Teams Finished Goods Inspector Relationship Specialty Start Date End Date Cydney Urban MD [address] [place] [address] PCP - General 01/24/21 Harpal Kendrick MD [address] [place] [address] Referring Physician Gastroenterology 04/05/21
[2024-10-27 17:24] LABS: Alanine Aminotransferase 24 U/L (6-35); Albumin Level 4.2 g/dL (3.5-5.1); Alkaline Phosphatase 54 U/L (38-126); Anion Gap 8 mmol/L (4-12); Aspartate Amino Transferase 30 U/L (14-36); Bilirubin,Total 1.3 mg/dL (0.2-1.3); Blood Urea Nitrogen 11 mg/dL (7-17); Calcium 9.5 mg/dL (8.4-10.2); Carbon Dioxide 28 mmol/L (22-30); Chloride 99 mmol/L (98-107); Estimated Glomerular Filt Rate > 60; Glucose 98 mg/dL (65-110); Lipase 18 U/L (23-300); Sodium 135 mmol/L (137-145)
[2024-10-27 17:51] LABS: Free T4 Free Thyroxine 1.16 ng/dL (0.78-2.19); Influenza A QL RT-PCR Negative (Negative); Influenza B QL RT-PCR Negative (Negative); SARS-CoV-2 RNA PCR Negative (Negative)
== END 2024-10-27 17:03 | disposition home or self-care (01) ==
LOC: ANHLAB 17:03
PROVIDERS: PCP Family Medicine; Visit Provider Physician Assistant Medical
DX: E03.9 Hypothyroidism, unspecified (principal); R10.9 Unspecified abdominal pain; I10 Essential (primary) hypertension; R50.9 Fever, unspecified
CPT/HCPCS: 36415; 80053; 83690; 84439; 84443; 84480; 84481; 87636

== ENCOUNTER 2024-10-28 13:28 | Outpatient (CLI) | payer OTHER, SELFPAY ==
--- NOTE | ~2024-10-28 | CT_ITS ---
EXAMINATION: CT abdomen pelvis w con DATE: 10/28/2024 13:51 INDICATION: Epigastric abdominal pain. TECHNIQUE: Computed tomography (CT) of the abdomen and pelvis was performed with 100 mL Omnipaque 350 intravenous contrast. Automated exposure control and iterative reconstruction technique were employe d. The dose-length product was 1106.81 mGy-cm. COMPARISON: CT abdomen and pelvis 04/12/2022 FINDINGS: The visualized portions of lung bases demonstrate minimal atelectasis. No pleural effusion. The heart size is normal. No pericardial effusion. There is an interatrial closure device. No perica rdial effusion. There is a small sliding hiatal hernia. There are surgical changes of the stomach. Th e liver and spleen are normal. There are changes of cholecystectomy. The pancreas, adrenal glands, an d kidneys are normal. The appendix is normal. There are no dilated loops of bowel. There are scattere d diverticula in the colon. There is fat stranding around a diverticulum of distal descending colon, consistent with diverticulitis. There is fat stranding around a diverticulum of the hepatic flexure o f the colon with local colon wall thickening, consistent with diverticulitis. There are no pathologic ally enlarged lymph nodes. There is no free intraperitoneal fluid. There is severe lower lumbar spond ylosis. IMPRESSION: 1. Acute diverticulitis involving the hepatic flexure of the colon and the distal descending colon. N o perforation or abscess. Reviewed, dictated and finalized at location A. INUM AND PALLADIUM KETTLE TENDER IMPRESSION: 1. Acute diverticulitis involving the hepatic flexure of the colon and the dist al descending colon. No perforation or abscess.
[2024-10-28 13:42] LABS: Estimated Glomerular Filt Rate > 60
== END 2024-10-28 13:29 | disposition home or self-care (01) ==
PROVIDERS: PCP Family Medicine; Visit Provider Physician Assistant Medical
DX: K57.32 Diverticulitis of large intestine without perforation or abscess without bleeding (principal); Z87.19 Personal history of other diseases of the digestive system
CPT/HCPCS: 74177; Q9967

== ENCOUNTER 2025-07-06 07:11 | Outpatient (CLI) | payer OTHER, SELFPAY ==
--- OUTSIDE RECORDS SUMMARY | 2025-07-06 07:15 | XMS_ITS | Patient Health Record ---
Author Organization [facility] [employer] Address [address] [facility] [address] [place] [address] Care Team Providers Care Utility Lineman Name Role Phone Jose Hines MD Primary Care Provider Unavaila Kinjal Watson Unavailable [phone] Allergies Allergen (clinical drug ingredient) Drug/Non Drug Allergy documented on EMR Reaction Allergy Type Onset Date Status gentian deisy Gentian Deisy Unknown Drug Allergy Active Results Component Value Reference Range Notes UDT Reviewed date:04/10/2025 08:49:09 PM Interpretation: Performing Lab: Notes/Report: Amphetamine (AMP) n 0 - 1000 ng/ml Buprenorphine (BUP) n 0 - 10 ng/ml Oxazepam (BZO) n 0 - 300 ng/ml Cocaine (MARIELA) n 0 - 300 ng/ml Methamphetamine (mAMP) n 0 - 300 ng/ml Methylenedioxymethamphetamine (MDMA) n 0 - 500 ng/ml Morphine (MOP) n 0 - 25 ng/ml Methadone (MTD) n 0 - 300 ng/ml Oxycodone (OXY) n 0 - 300 ng/ml THC n 0 - 50 ng/ml x n 0 - 1000 ng/ml x n 0 - 1000 ng/ml x n 0 - 300 ng/ml x n 0 - 300 ng/ml x n 0 - 300 ng/ml Reason For Referral No Information Medications Medication SIG (Take, Route, Frequency, Duration) Notes Start Date End Date Status Xarelto 20 MG Tablet 1 tablet with food Orally Once a day Active Aspirin 81 MG Tablet Chewable 1 tablet Orally Once a day Active Venlafaxine HCl ER 75 MG Capsule Extended Release 24 Hour 3 capsules Orally Once a day; Duration: 90 days Active Atorvastatin Calcium 40 MG Tablet 1 tablet Orally Once a day Active Synthroid 150 MCG Tablet 1 tablet in the morning on an empty stomach Orally Once a day Active Ani Allergy 60 MG Tablet 1 tablet Orally Twice a day Active Carvedilol 12.5 MG Tablet 1 tablet with food Orally Twice a day 2 x day Active LORazepam 1 MG Tablet 0.5 to 1 tablet at bedtime Orally nightly; Duration: 30 days As needed 04/23/2025 Active Liothyronine Sodium 5 MCG Tablet 1 tablet on an empty stomach Orally Once a day Active Social History Tobacco Use: Social History Observation Description Date Details (start date - stop date) Never Smoker NA - NA Sex Assigned At : Social History Observation Description Sex Assigned At Female Social History Miscellaneous: Social Info Question Answer Notes Safety issues: Do you feel safe at home? Yes Are there any firearms in the house? No Social History Social Info Question Answer Notes Household: Marital Status: Number of Adults in household: 3 Number of Children in Household: 1 Level of Education: Professional Schools/Masters /PhD Household: Social Info Question Answer Notes Household Marital status: Number of adults in household: 3 Drug/Alcohol: Social Info Question Answer Notes AUDIT-C (Standard) Points 2 Did you have a drink contain ing alcohol in the past year? Yes How often did you have six or more drinks on one occasion in the past year? Never (0 point) How many drinks did you have on a typical day when you were drinking in the past year? 1 or 2 drinks (0 point) How often did you have a drink containing alcohol in the past year? 2 to 4 times a month (2 points) Tobacco Use: Social Info Question Answer Notes Tobacco Control (Standard) Tobacco use: Nonsmoker Additional Details Category Social Info Options Details Miscellaneous: Occupation: Teacher and i nstructional couch for [employer] Problems Problem Type SNOMED Code ICD Code Onset Dates Problem Status W/U Status Risk Notes Problem Mild recurrent major depression (04470991) Major depressive disorder, recurrent, mild (F33.0) Active confirmed Problem Generalized anxiety disorder (77513098) Generalized anxiety disorder (F41.1) Active confirmed Vital Signs Heart Rate 74 /min 04/10/2025 Height-cm 175.26 cm 04/10/2025 Blood pressure diastolic 81 mm Hg 04/10/2025 Weight-kg 135.17 kg 04/10/2025 Height 69 in 04/10/2025 Blood pressure systolic 123 mm Hg 04/10/2025 Weight 298 lbs 04/10/2025 BMI 44 kg/m2 04/10/2025 Encounters Encounter Location Date Provider Diagnosis [facility] [employer] [facility] [address] [place] [address] 04/10/2025 Kinjal Lambert Major depressive disorder, recurrent, mild F33.0 and Generalized anxiety disorder F41.1 [facility] [employer] [facility] [address] [place] [address] 04/23/2025 Kinjal Lambert Generalized anxiety disorder F41.1 Assessments Encounter Date Diagnosis (ICD Code) Assessment Notes Treatment Notes Treatment Clinical Notes Section Notes 04/23/2025 Generalized anxiety disorder (ICD-10 - F41.1) 04/10/2025 Major depressive disorder, recurrent, mild (ICD-10 - F33.0) 04/10/2025 Generalized anxiety disorder (ICD-10 - F41.1) 04/10/2025 Other Valeri Oconnell is a female patient with a history of depression and anxiety, currently managed on venlafaxine and as-needed lorazepam, presenting for medication management follow-up. Major Depressive Disorder Assessment: Patient has a long-standing history of depression, initially diagnosed around 2004 during marriage counseling. Previous trials with Lexapro were ineffective. Current treatment with venlafaxine 225mg daily has been beneficial, with the patient reporting that depression is now manageable and she rebounds quicker than before. No current suicidal ideation or history of attempts. No psychiatric hospitalizations. Plan: - Continue venlafaxine 225mg (three 75mg extended-release tablets) PO daily Generalized Anxiety Disorder Assessment: Patient developed anxiety following her mother's . Currently experiences anxiety related to travel. Reports occasional insomnia. Uses lorazepam 1mg as needed for severe stress and anxiety, approximately 1-2 times per month. No recent panic attacks reported. Plan: - Continue lorazepam 1mg PO as needed for severe anxiety - Recommend using 0.5mg (half tablet) if effective for symptom management Grief and Loss Assessment: Patient has experienced significant losses, including the of her mother (which she describes as traumatic), and more recently, the loss of her previous psychiatrist and therapist. These losses may contribute to her ongoing mental health concerns. Plan: - Offered referral to therapist if patient is interested in resuming psychotherapy - Patient to consider and inform if referral is desired Medication Management Assessment: Patient is currently stable on her medication regimen. Compliance with controlled substance policy is necessary for ongoing lorazepam prescription. Plan: - Schedule follow-up appointment in 3 months for medication management and controlled substance monitoring - Advised patient to reach out sooner if any concerns arise before next appointment Plan Of Treatment Next Appt Details Provider Name:Kinjal wilde, 07/06/2025 08:30:00 AM, [address] [facility] [address], [place], [address], Insurance Providers Payer Name Payer Address Payer Phone Subscriber Number Group Number Insured Name Patient Relationship to Insured Coverage Start Date Coverage End Date [facility] [address] [place] [address] [id number] Valeri Flores Self - patient is the insured Medical (General) History Medical History History ICD Code Past Psychiatric History: Anxiety Disord er atrial fibrillation hyperlipidemia hypertension stroke Surgical History Surgery Date(Month/Year) tonsillectomy and adenoidectomy 1976 cyst removal 1982 c sections 1995 hernia repair 2020 galbladder removal 2022 occluder device 2021
--- OUTSIDE RECORDS SUMMARY | 2025-07-06 07:15 | XMS_ITS | Clinical Summary ---
Author Organization [facility] [employer] Address [address] [place] [address] Care Team Providers Care Customer Service Representative Teller Name Role Phone Cydney Urban MD Primary Care Provider + Source Comments [facility],non-owned Affiliates and Associated Physician Practices is amultiple site organization consisting of ambulatory clinics and hospital sitesin [place], [place], [place] and [place]. This disclosure is being madepursuant to the Care Everywhere program and may not contain all information available regarding this patient. Last updated 18.[facility] [employer] Allergies Active Allergy Reactions Criticality Noted Date Comments Gentamicin Rash Medium 07/23/2016 gentamycin eye ddrops Medications * Be aware that medications may not be up to date on this document. Alwaysverify current medications with the patient. Venlafaxine HCl (EFFEXOR XR PO) Take 225 mg by mouth once daily Active Fexofenadine HCl (ELIANE PO) Take by mouth as needed Active atorvastatin (LIPITOR) 40 MG tablet Take 1 (one) tablet by mouth at bedtime 30 tablet 3 1 Active levothyroxine (SYNTHROID) 150 MCG tablet Take 1 (one) tablet by mouth once daily 1 Active liothyronine (CYTOMEL) 5 MCG tablet Take 1 (one) tablet by mouth once daily 1 Active Rivaroxaban (XARELTO STARTER PACK) 15 & 20 MG TBPK Take 15mg by mouth twice daily for 21 days then 20mg by mouth once daily there after 51 tablet 1 Active furosemide (Lasix) 10 mg TABS Take [...] tablet by mouth once daily 100 tablet 2 Active furosemide (Lasix) 20 MG tablet Take 1 (one) tablet by mouth as needed 20 tablet 3 2 Active carvedilol (Coreg) 12.5 MG tablet TAKE 1 TABLET TWICE A DAY WITH MORNING AND EVENING MEALS 180 tablet 3 5 Active Active Problems Problem Noted Date Diagnosed Date Paroxysmal atrial fibrillation 01/25/2024 ASD (atrial septal defect) 03/12/2022 Dyspnea 03/12/2022 Right ventricular failure 03/12/2022 Obesity 12/12/2021 Deep venous thrombosis of [facility] femoral vein with thrombophlebitis 04/29/2021 Other specified hypothyroidism 04/28/2021 Intracranial atherosclerosis 04/28/2021 Cerebrovascular accident (CVA) 04/27/2021 TIA (transient ischemic attack) 04/27/2021 Hypertension 04/27/2021 Anxiety disorder 04/15/2019 Asthma 04/15/2019 Depressive disorder 04/15/2019 Resolved Problems Problem Noted Date Diagnosed Date Resolved Date PFO (patent foramen ovale) 04/29/2021 0 03/12/2022 Encounters Date Type Department Care Team Description 06/30/2025 4:40 PM CDT Video Visit [facility] - Cardiology [address], [facility] [address] [place] [address] Alejandrina Parry MD Left without seen 06/29/2025 Telephone [facility] - Cardiology [address], [facility] [address] [place] [address] Alejandrina Parry MD Appointment 06/02/2025 Travel 04/20/2025 Travel from Last 3 Months Immunizations Immunization Administration Dates Next Due Covid Pati primary monoval ent 12+ yr 0.3mL Purple [...] Date Recorded PHQ2 TOTAL SCORE 0 04/27/2021 Comments No Sex and Gender Information Value Date Recorded Sex Assigned at Not on file Legal Sex 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 Gender Identity Not on file Sexual Orientation Not on file Last Filed Vital Signs Vital Sign Reading Time Taken Comments Blood Pressure 119/78 05/14/2024 9:02 AM CDT Pulse 62 05/14/2024 8:08 AM CDT Temperature 36.7 C (98 F) 10/05/2022 11:11 AM [employer] PREPARATION WORKER Respiratory Rate 16 07/10/2022 4:00 PM CDT Oxygen Saturation 98% 05/14/2024 8:08 AM CDT Inhaled Oxygen Concentration - - Weight 130.2 kg (287 lb) 05/14/2024 9:02 AM CDT Height 175.3 cm (5' 9) 05/14/2024 9:02 AM CDT Body Mass Index 42.38 05/14/2024 9:02 AM CDT Plan of Treatment Health Maintenance Due Date Last Done Comments COLOGUARD (AGES 45-75) - COLON CA SCREENING 1970 COLON MONITORING 1970 COLONOSCOPY - COLON CA SCREENING 1970 CT COLONOGRAPHY - COLON CA SCREENING 1970 Colorectal Cancer Screening 1970 FIT - COLON CA SCREENING 1970 FLEX SIG - COLON CA SCREENING 1970 MAMMOGRAM 1970 HIV SCREENING 1985 HEPATITIS C SCREENING 02/19/1988 DTAP/TDAP/TD VACCINES (1 - Tdap) 1989 HEPATITIS B VACCINE (1 of 3 - 19+ 3-dose series) 1989 PNEUMOCOCCAL VACCINE 50+ (1 of 2 - PCV) 1989 PAP SMEAR 1991 ZOSTER VACCINE (1 of 2) 02/24/2020 DEPRESSION SCREENING 09/17/2024 COVID-19 VACCINE ( - season) 2025 07/04/2021, 11/23/2020, 11/02/2020 INFLUENZA VACCINE (#1) 2025 9, 06/07/2018, 06/02/2017, Additional history exists HIB VACCINE Aged Out No longer eligi ble based on patient's age to complete this topic HPV VACCINE Aged Out No longer eligi ble based on patient's age to complete this topic MENINGOCOCCAL (Group B) VACCINE SHARED DECISION-MAKING Aged Out No longer eligible based on patient's age to complete this topic MENINGOCOCCAL GROUPS A/C/Y/W VACCINE Aged Out No longer eligible based on patient's age to complete this topic Medical Devices Implanted Type Area Document Management Analyst Device Identifier Shelf Expiration Date Model / Serial / Lot Occl May - [id number] Implanted:Qty: 1 on 07/10/2022 by Alejandrina Parry MD at [facility] N/A: Heart Crovat 01/15/2024ASD-013 / [id number] / [id number] Insurance [facility] Advance Directives * Full Code (Latest Code Status on File) Date Activated Date Inactivated Comments 07/10/2022 12:31 PM 07/10/2022 5:34 PM * Full Code Date Activated Date Inactivated Comments 04/27/2021 11:27 AM 04/28/2021 7:07 PM Care Teams Customer Service Representative Teller Relationship Specialty Start Date End Date Cydney Urban MD [address] [place] [address] PCP - General Family Medicine 07/23/16
--- OUTSIDE RECORDS SUMMARY | 2025-07-06 07:15 | XMS_ITS | Clinical Summary ---
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 11/14/19 21 Active albuterol HFA [...] 1 capsule (12.5 mg total) by mouth teacher early childhood development before breakfast Crush medications for 1 week after surgery 04/06/20 Active Additional Information Patient not taking.Reported on 05/23/2022 carvediloL (COREG) 6.25 mg tabletIndications: hypertension Take 1 tablet (6.25 mg total) by mouth teacher early childhood development before breakfast Crush medications for 1 week after surgery 04/06/20 Active liothyronine (CYTOMEL) 5 mcg tabletIndications: hypothyroidism Take 1 tablet (5 mcg total) by mouth teacher early childhood development before breakfast Crush medications for 1 week after surgery 04/06/20 Active Synthroid 150 mcg tabletIndications: hypothyroidism Take 1 tablet (150 mcg total) by mouth teacher early childhood development before breakfast Crush medications for 1 week [...] (02/08/2021): Added automatically from request for surgery [id number] Anxiety disorder 04/15/2019 Asthma 04/15/2019 Depressive disorder [...] on file 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 Gender Identity Female 02/04/2021 7:14 PM CDT [...] 9:07 AM CDT Height 175.3 cm (5' 9) 05/23/2022 9:07 AM CDT Body Mass Index 37.57 05/23/2022 9:07 AM CDT Plan of Treatment Not on file Medical Devices Implanted Type Area Sales And Customer Relations Rep Device Identifier Shelf Expiration Date Model / Serial / Lot [employer] [id number] [employer]A 10x7cm Reinforcement Tissue Mesh Surgical Synthetic - [id number] - [id number] Implanted:Qty: 1 on 04/04/2021 by Moira Crain MD at [facility] Mesh N/A: Abdomen [employer] [id number] 01/02/2024 [id number] / [id number] / Insurance [facility]PP[facility] Address: [place] [address] [facility] H[facility]PPO Address: [place] [address] [facility] H[facility]PPO Address: [place] [address] Advance Directives For more information, please contact: [phone] * Full Code (Latest Code Status on File) Date Activated Date Inactivated Comments 04/04/2021 9:33 PM 04/06/2021 5:10 PM Care Teams Information Technology Internship Relationship Specialty Start Date End Date Cydney Urban MD [address] [place] [address] PCP - General 01/24/21 Harpal Kendrick MD [address] [place] [address] Referring Physician Gastroenterology 04/05/21
[2025-07-06 08:14] LABS: Hematocrit 40.6 % (37.0-47.0); Hemoglobin 13.4 g/dL (12.0-15.0); Mean Corpuscular HGB Conc 33.0 g/dl (32-36); Mean Corpuscular Hemoglobin 30.5 pg (26-34); Mean Corpuscular Volume 92.3 fl (80-100); Platelet Count Result 414 k/mm3 (150-375); Red Blood Count 4.40 M/mm3 (4.2-5.4); White Blood Count 6.0 K/mm3 (4.5-10.0)
[2025-07-06 08:32] LABS: Add Urine Microscopic? YES; Appearance Urine Clear (Clear); Glucose Urine UA Negative (Negative); Leukocyte Esterase Ur Trace LEU/UL (Negative); Need Manual Microscopic Reviewed; Nitrate Urine Negative (Negative); Non Pathogenic Casts 0-2; Specific Grav Ur 1.020 (1.001-1.035)
[2025-07-06 08:34] LABS: Amylase 73 U/L (30-110)
[2025-07-06 08:42] LABS: Alanine Aminotransferase 19 U/L (6-35); Albumin Level 4.2 g/dL (3.5-5.1); Alkaline Phosphatase 56 U/L (38-126); Anion Gap 8 mmol/L (4-12); Aspartate Amino Transferase 31 U/L (14-36); Bilirubin,Total 0.6 mg/dL (0.2-1.3); Blood Urea Nitrogen 14 mg/dL (7-17); Calcium 9.1 mg/dL (8.4-10.2); Carbon Dioxide 28 mmol/L (22-30); Chloride 102 mmol/L (98-107); Cholesterol 146 mg/dL (0-200); Estimated Glomerular Filt Rate > 60; Glucose 92 mg/dL (65-110); HDL Direct 59 mg/dL; Potassium 4.0 mmol/L (3.4-5.0); Sodium 138 mmol/L (137-145); Total Protein 7.3 g/dL (6.3-8.2); Triglycerides 105 mg/dL (<150)
[2025-07-06 09:18] LABS: Thyroid Stimulating Hormone 8.750 uIU/mL (0.465-4.680)
== END 2025-07-06 07:12 | disposition home or self-care (01) ==
LOC: ANHLAB 07:12
PROVIDERS: PCP Family Medicine; Referring Provider Physician Assistant Medical; Visit Provider Family Medicine
DX: Z00.00 Encounter for general adult medical examination without abnormal findings (principal); E78.2 Mixed hyperlipidemia; I10 Essential (primary) hypertension; E03.9 Hypothyroidism, unspecified; R10.9 Unspecified abdominal pain; R50.9 Fever, unspecified
CPT/HCPCS: 36415; 80053; 80061; 81001; 82150; 84443; 85027